=== PATIENT | male | born 1960 | race Caucasian/White ===

== ENCOUNTER → 2016-07-22 | Outpatient (CLI) | payer OTHER ==
[2016-07-22 08:41] LABS: CHLORIDE,CL 105 mmol/L (98-110); SODIUM,NA 139 mmol/L (136-146)
== END ==
LOC: MW.CHIM 07:56
PROVIDERS: ATTEND Internal Medicine
DX: Z12.5 Encounter for screening for malignant neoplasm of prostate (principal); E11.9 Type 2 diabetes mellitus without complications
CPT/HCPCS: 36415; 80053; 83036; G0103

== ENCOUNTER 2017-02-04 09:38 | Emergency (ER) | payer OTHER ==
[2017-02-04] MEDS ORDERED: Sodium Chloride 0.9% 1,000 ML IV ONE ×2 (10:06→11:50)
[2017-02-04] MEDS ORDERED: Ondansetron 4 MG/2 ML SDV IVPUSH ONE (10:06)
[2017-02-04] MEDS ORDERED: Pantoprazole 40 MG Vial IVPUSH ONE (10:07)
--- NOTE | 2017-02-04 10:07 | EDM.PDOC ---
ED HPI GENERAL MEDICAL PROBLEM - General Chief Complaint: Gastrointestinal Problem Stated Complaint: BLOOD IN STOOL Time Seen by Provider: 02/04/17 10:06 Source of Information: Reports: Patient - History of Present Illness INITIAL COMMENTS - FREE TEXT/NARRATIVE: HISTORY AND PHYSICAL: History of present illness: []Patient presents with nausea vomiting diarrhea over the last week, he has noted blood in his stool he has had 8 episodes of red stools, denies any fever he has had the nausea and vomiting multiple episodes daily and general malaise decreased appetite No chest pain shortness breath headache dizziness or palpitation no urine symptoms symptoms Review of systems: As per history of present illness and below otherwise all systems reviewed and negative. Past medical history: As per history of present illness and as reviewed below otherwise noncontributory. Surgical history: As per history of present illness and as reviewed below otherwise noncontributory. Social history: No reported history of drug or alcohol abuse. Family history: As per history of present illness and as reviewed below otherwise noncontributory. Physical exam: HEENT: Atraumatic, normocephalic, pupils reactive, negative for conjunctival pallor or scleral icterus, mucous membranes moist, throat clear, neck supple, nontender, trachea midline. Lungs: Clear to auscultation, breath sounds equal bilaterally, chest nontender. Heart: S1S2, regular, negative for clicks, rubs, or JVD. Abdomen: Soft, nondistended, nontender. Negative for masses or hepatosplenomegaly. Negative for costovertebral tenderness. Pelvis: Stable nontender. Genitourinary: Deferred. Rectal: Deferred. Extremities: Atraumatic, negative for cords or calf pain. Neurovascular unremarkable. Neuro: Awake, alert, oriented. Cranial nerves II through XII unremarkable. Cerebellum unremarkable. Motor and sensory unremarkable throughout. Exam nonfocal. Diagnostics: []CBC CMP UA troponin Guaiac performed on stool Stool culture and white blood cell Influenza C. difficile and O&P pending Therapeutics: []Liter normal saline bolus 2 Zofran 8 mg IV Protonix 80 mg IV Flagyl 500 by mouth 3 times a day #30 no refill Zofran Impression: []Blood in loose stool Nausea vomiting Viral syndrome Definitive disposition and diagnosis as appropriate pending reevaluation and review of above. - Related Data Allergies Allergy/AdvReac Type Severity Reaction Status Date / Time No Known Allergies Allergy Verified 01/12/14 15:42 Home Meds: Home Meds Aspirin [Renee Chewable Aspirin] 1 tab PO DAILY 01/12/14 [History] Metoprolol Succinate [Toprol XL] 50 mg PO DAILY 01/12/14 [History] Pravastatin Sodium [Pravastatin (Pravachol)] 40 mg PO BEDTIME 01/12/14 [History] metFORMIN [Glucophage] 1,000 mg PO BID 01/12/14 [History] Dulaglutide [Trulicity] 0 mg SQ WEEKLY 02/04/17 [History] Empagliflozin/Linagliptin [Glyxambi 25 mg-5 mg Tablet] 1 tab PO DAILY 02/04/17 [ History] Ramipril [Altace] 2.5 mg PO DAILY 02/04/17 [History] Social & Family History - Tobacco Use Smoking Status *Q: Never Smoker - Alcohol Use Days Per Week of Alcohol Use: 0 - Recreational Drug Use Recreational Drug Use: No ED ROS GENERAL - Review of Systems Review Of Systems: ROS reveals no pertinent complaints other than HPI. ED EXAM, GENERAL - Physical Exam Exam: See Below Course - Vital Signs Last Recorded V/S: Last Vital Signs Temp 36.1 C 02/04/17 09:38 Pulse 95 02/04/17 09:38 Resp 18 02/04/17 09:38 BP 109/73 02/04/17 09:38 Pulse Ox 95 02/04/17 09:38 - Orders/Labs/Meds Orders: Active Orders 24 hr Category Date Time Status Abdomen 2V AP Flat Upright [CR] Stat Exams 02/04/17 11:05 Taken CDIFF TOX A+B [OP] Stat Lab 02/04/17 14:21 Uncollected CULTURE STOOL + CAMPY+SHIGATOX [RM] Stat Lab 02/04/17 13:10 Results OVA & PARASITES BY IMMUNOASSAY [MREF] Stat Lab 02/04/17 13:10 Received Labs: Laboratory Tests 02/04/17 02/04/17 02/04/17 Range/Units 10:14 10:14 10:14 WBC 15.43 H (4.0-11.0) K/uL RBC 5.12 (4.50-5.90) M/uL Hgb 15.3 (13.0-17.0) g/dL Hct 44.1 (38.0-50.0) % MCV 86.1 (80.0-98.0) fL MCH 29.9 (27.0-32.0) pg MCHC 34.7 (31.0-37.0) g/dL RDW Std Deviation 40.5 (28.0-62.0) fl RDW Coeff of Aureliano 13 (11.0-15.0) % Plt Count 261 (150-400) K/uL MPV 9.40 (7.40-12.00) fL Add Manual Diff YES Neutrophils % (Manual) 69 (48.0-80.0) % Band Neutrophils % 2 % Lymphocytes % (Manual) 24 (16.0-40.0) % Monocytes % (Manual) 5 (0.0-15.0) % Nucleated RBC % 0.0 /100WBC Absolute Seg Neuts 10.6 H (1.4-5.7) Band Neutrophils # 0.3 Lymphocytes # (Manual) 3.7 H (0.6-2.4) Monocytes # (Manual) 0.8 (0.0-0.8) Nucleated RBCs # 0 K/uL Sodium 134 L (136-146) mmol/L Potassium 4.4 (3.5-5.1) mmol/L Chloride 100 (98-110) mmol/L Carbon Dioxide 20 L (21-31) mmol/L BUN 48 H (6.0-23.0) mg/dL Creatinine 1.3 (0.6-1.5) mg/dL Est Cr Clr Drug Dosing 68.81 mL/min Estimated GFR (MDRD) 56.9 ml/min Glucose 204 H (60-110) mg/dL Calcium 9.4 (8.8-10.8) mg/dL Total Bilirubin 0.6 (0.1-1.5) mg/dL AST 14 (5-40) IU/L ALT 34 (8-54) IU/L Alkaline Phosphatase 62 (40-150) Troponin I < 0.10 (0.0-0.29) NG/ML Total Protein 6.7 (6.0-8.0) g/dL Albumin 3.7 (3.5-5.0) g/dL Globulin 3.0 (2.0-3.5) g/dL Albumin/Globulin Ratio 1.2 L (1.3-2.8) Urine Color Urine Appearance Urine pH (5.0-8.0) Ur Specific [place] (1.001-1.035) Urine Protein (NEGATIVE) mg/dL Urine Glucose (UA) (NEGATIVE) mg/dL Urine Ketones (NEGATIVE) mg/dL Urine Occult Blood (NEGATIVE) Urine Nitrite (NEGATIVE) Urine Bilirubin (NEGATIVE) Urine Urobilinogen (<2.0) EU/dL Ur Leukocyte Esterase (NEGATIVE) Urine RBC (0-2/HPF) Urine WBC (0-5/HPF) Ur Epithelial Cells (NONE-FEW) Urine Bacteria (NEGATIVE) Blood Type Antibody Screen 02/04/17 02/04/17 Range/Units 10:14 13:10 WBC (4.0-11.0) K/uL RBC (4.50-5.90) M/uL Hgb (13.0-17.0) g/dL Hct (38.0-50.0) % MCV (80.0-98.0) fL MCH (27.0-32.0) pg MCHC (31.0-37.0) g/dL RDW Std Deviation (28.0-62.0) fl RDW Coeff of Aureliano (11.0-15.0) % Plt Count (150-400) K/uL MPV (7.40-12.00) fL Add Manual Diff Neutrophils % (Manual) (48.0-80.0) % Band Neutrophils % % Lymphocytes % (Manual) (16.0-40.0) % Monocytes % (Manual) (0.0-15.0) % Nucleated RBC % /100WBC Absolute Seg Neuts (1.4-5.7) Band Neutrophils # Lymphocytes # (Manual) (0.6-2.4) Monocytes # (Manual) (0.0-0.8) Nucleated RBCs # K/uL Sodium (136-146) mmol/L Potassium (3.5-5.1) mmol/L Chloride (98-110) mmol/L Carbon Dioxide (21-31) mmol/L BUN (6.0-23.0) mg/dL Creatinine (0.6-1.5) mg/dL Est Cr Clr Drug Dosing mL/min Estimated GFR (MDRD) ml/min Glucose (60-110) mg/dL Calcium (8.8-10.8) mg/dL Total Bilirubin (0.1-1.5) mg/dL AST (5-40) IU/L ALT (8-54) IU/L Alkaline Phosphatase (40-150) Troponin I (0.0-0.29) NG/ML Total Protein (6.0-8.0) g/dL Albumin (3.5-5.0) g/dL Globulin (2.0-3.5) g/dL Albumin/Globulin Ratio (1.3-2.8) Urine Color YELLOW Urine Appearance CLEAR Urine pH 5.0 (5.0-8.0) Ur Specific [place] 1.020 (1.001-1.035) Urine Protein NEGATIVE (NEGATIVE) mg/dL Urine Glucose (UA) >=1000 (NEGATIVE) mg/dL Urine Ketones 15 H (NEGATIVE) mg/dL Urine Occult Blood NEGATIVE (NEGATIVE) Urine Nitrite NEGATIVE (NEGATIVE) Urine Bilirubin NEGATIVE (NEGATIVE) Urine Urobilinogen 0.2 (<2.0) EU/dL Ur Leukocyte Esterase NEGATIVE (NEGATIVE) Urine RBC 0-1 (0-2/HPF) Urine WBC 0-1 (0-5/HPF) Ur Epithelial Cells RARE (NONE-FEW) Urine Bacteria RARE (NEGATIVE) Blood Type B POSITIVE Antibody Screen NEGATIVE Meds: Medications Discontinued Medications Generic Name Dose Route Start Last Admin Trade Name Freq PRN Reason Stop Dose Admin Sodium Chloride 1,000 mls @ 999 mls/hr 02/04/17 10:06 02/04/17 10:51 Normal Saline IV 02/04/17 11:06 999 mls/hr STAT ONE Administration Sodium Chloride 1,000 mls @ 999 mls/hr 02/04/17 11:50 02/04/17 12:43 Normal Saline IV 02/04/17 12:50 999 mls/hr STAT ONE Administration Ondansetron HCl 8 mg 02/04/17 10:06 02/04/17 10:51 Zofran IVPUSH 02/04/17 10:07 8 mg ONETIME ONE Administration Pantoprazole Sodium 80 mg 02/04/17 10:07 02/04/17 10:51 Protonix Iv IVPUSH 02/04/17 10:08 80 mg .BOLUS ONE Administration Departure - Departure Time of Disposition: 14:27 Disposition: Home, Self-Care 01 Condition: Good Clinical Impression: Bloody stools - Discharge Information Referrals: Norris Bernstein MD [Primary Care Provider] - Forms: ED Department Discharge Additional Instructions: Medication as prescribed Return symptoms persist or worsen Follow-up with primary care in one week sooner as needed Stool cultures and tests for parasites as well as certain bacteria as that may cause blood in stool are pending [facility] - Primary Care [address] [place] [id number] The following information is given to patients seen in the emergency department who are being discharged to home. This information is to outline your options for follow-up care. We provide all patients seen in our emergency department with a follow-up referral. The need for follow-up, as well as the timing and circumstances, are variable depending upon the specifics of your emergency department visit. If you don't have a primary care physician on staff, we will provide you with a referral. We always advise you to contact your personal physician following an emergency department visit to inform them of the circumstance of the visit and for follow-up with them and/or the need for any referrals to a consulting specialist. The emergency department will also refer you to a specialist when appropriate. This referral assures that you have the opportunity for follow-up care with a specialist. All of these measure are taken in an effort to provide you with optimal care, which includes your follow-up. Under all circumstances we always encourage you to contact your private physician who remains a resource for coordinating your care. When calling for follow-up care, please make the office aware that this follow-up is from your recent emergency room visit. If for any reason you are refused follow-up, please contact the [facility] emergency department at and asked to speak to the emergency department charge nurse. - My Orders Last 24 Hours: My Active Orders 02/04/17 11:05 Abdomen 2V AP Flat Upright [CR] Stat 02/04/17 13:10 CULTURE STOOL + CAMPY+SHIGATOX [RM] Stat OVA & PARASITES BY IMMUNOASSAY [MREF] Stat 02/04/17 14:21 CDIFF TOX A+B [OP] Stat - Assessment/Plan Last 24 Hours: My Active Orders 02/04/17 11:05 Abdomen 2V AP Flat Upright [CR] Stat 02/04/17 13:10 CULTURE STOOL + CAMPY+SHIGATOX [RM] Stat OVA & PARASITES BY IMMUNOASSAY [MREF] Stat 02/04/17 14:21 CDIFF TOX A+B [OP] Stat
--- NOTE | 2017-02-06 11:14 | CR ---
EXAM DATE: 02/04/17 PATIENT'S AGE: 56 Patient: SHLOMO ROBERT Facility: [place], [place] Site . Site : 1960 Study: XRay Abdomen [id number] 12:15:47 PM Ordering Physician: Agustin Osorio Final Report: INDICATION: Pain and vomiting. Technique: Three views abdomen and pelvis flat upright. Findings: No free air. Moderate elevation right hemidiaphragm. Ill-defined increased indeterminate opacity in the left lung base laterally could be related infiltrate, pleural fluid, atelectasis, and/or pleural thickening. Mild atelectasis left lung base medially. Bowel gas pattern nonspecific and falls within normal limits. Moderate degenerative arthritis both hips with sclerosis and lucency in the right acetabulum related to this degenerative disease. Remainder negative. Dictated by Esequiel Pretty MD @ Feb 04 2017 12:34PM (Electronic Signature) Report Signed by Proxy. DOUGLAS
== END 2017-02-04 14:51 | disposition home or self-care (01) ==
LOC: MW.ED 09:38
DX: K92.1 Melena (principal); R11.2 Nausea with vomiting, unspecified; B34.9 Viral infection, unspecified; Z79.82 Long term (current) use of aspirin; Z79.899 Other long term (current) drug therapy
CPT/HCPCS: 36415; 74020; 80053; 81001; 82272; 82962; 83630; 84484; 85025; 86850; 86900; 86901; 87046; 87324; 87328; 87329; 87804; 96361; 96374; 96375; 99284; C9113; J2405; J7040; 87899; 99283

== ENCOUNTER 2017-04-10 13:22 | Inpatient (IN) | payer OTHER ==
[2017-04-10] MEDS ORDERED: metroNIDAZOLE/Normal Saline 500 MG in Premix Bag 1 BAG IV SCH (14:15)
[2017-04-10] MEDS ORDERED: Ondansetron 4 MG/2 ML SDV IVPUSH PRN ×2 (14:25→19:46)
--- NOTE | 2017-04-10 14:45 | PCM.HP ---
H&P History of Present Illness - General Admit Problem/Dx: Admission Diagnosis/Problem Admission Diagnosis/Problem Abdominal pain - History of Present Illness Initial Comments - Free Text/Narative: 56 yo male with pmh of DM and PR who presented to Dr. Minaya's clinic with complaint of abdominal pain. Patient reports throwing up at 2:00 pm yesterday and throughout the night having worsing right lower quadrant pain that radiated to the back. He only threw up once and has had no diarrhea. The abdominal pain improved this morning. Labs were ordered in clinic and were significant for Leukocytosis of 24,000 and an increase in his creatinine to 2.1 from 1.4. The patient was then called from home and a direct admission was arranged. - Related Data Allergies/Adverse Reactions: Allergies Allergy/AdvReac Type Severity Reaction Status Date / Time No Known Allergies Allergy Verified 01/12/14 15:42 Home Medications: Home Meds Aspirin [Renee Chewable Aspirin] 1 tab PO DAILY 01/12/14 [History] Metoprolol Succinate [Toprol XL] 50 mg PO DAILY 01/12/14 [History] metFORMIN [Glucophage] 1,000 mg PO QAM 01/12/14 [History] Ramipril [Altace] 2.5 mg PO DAILY 02/04/17 [History] Dulaglutide [Trulicity] 1.5 mg SQ WEEKLY 04/10/17 [History] Empagliflozin/Linagliptin [Glyxambi 25 mg-5 mg Tablet] 1 tab PO QAM 04/10/17 [ History] Hydrocodone/Acetaminophen [[place] 5-325] 1 tab PO Q6HR PRN 04/10/17 [History] Past Medical History - Past Health History Medical/Surgical History: Denies Medical/Surgical History HEENT History: Reports: Impaired Vision Cardiovascular History: Reports: Hypertension, PR Gastrointestinal History: Reports: Other (See Below) Other Gastrointestinal History: hernia Musculoskeletal History: Reports: Fracture Other Musculoskeletal History: cracked elbow Endocrine/Metabolic History: Reports: Diabetes, Type II - Infectious Disease History Infectious Disease History: Reports: None - Past Surgical History HEENT Surgical History: Reports: None Cardiovascular Surgical History: Reports: None GI Surgical History: Reports: Colonoscopy Endocrine Surgical History: Reports: None Social & Family History - Family History Family Medical History: Noncontributory Oncologic: Reports: Pancreatic - Tobacco Use Smoking Status *Q: Never Smoker Second Hand Smoke Exposure: No - Caffeine Use Caffeine Use: Reports: Tea - Alcohol Use Days Per Week of Alcohol Use: 0 - Recreational Drug Use Recreational Drug Use: No H&P Review of Systems - Review of Systems: Review Of Systems: ROS reveals no pertinent complaints other than HPI. Exam - Exam Exam: See Below - Vital Signs Weight: 115.6 kg - Exam General: Alert, Oriented HEENT: Mucosa Moist & [place] Lungs: Clear to Auscultation, Normal Respiratory Effort GI/Abdominal Exam: Soft, Tender (to right lower quadrant). No: Distended, Guarding, Rigid, Rebound Extremities: No Pedal Edema Skin: Warm, Dry, Intact *Q Meaningful Use (ADM) - VTE *Q VTE Criteria *Q: - Stroke *Q Stroke Criteria *Q: - AMI *Q AMI Criteria *Q: Problem List Initiated/Reviewed/Updated: Yes Orders Last 24hrs: Active Orders 24 hr Category Date Time Status Patient Status [ADT] Routine ADT 04/10/17 14:23 Active Antiembolic Devices [RC] PER UNIT ROUTINE Care 04/10/17 14:24 Active EKG 12 Lead [EKG Documentation Completion] [RC] ROUTINE Care 04/10/17 14:00 Active Oxygen Therapy [RC] PRN Care 04/10/17 14:23 Active Telemetry Monitoring [Cardiac Monitoring] [RC] . Care 04/10/17 14:01 Active DIRECTED Up ad Lennie [RC] ASDIRECTED Care 04/10/17 14:23 Active VTE/DVT Education [RC] PER UNIT ROUTINE Care 04/10/17 14:23 Active Vital Signs [RC] Q4H Care 04/10/17 14:23 Active Abdomen Pelvis wo Cont [CT] Stat Exams 04/10/17 14:03 Ordered AMYLASE [CHEM] Routine Lab 04/10/17 14:26 Ordered BASIC METABOLIC PANEL,BMP [CHEM] AM Lab 04/11/17 05:11 Ordered BMP [BASIC METABOLIC PANEL,BMP] [CHEM] Routine Lab 04/10/17 20:00 Ordered CBC W/O DIFF,HEMOGRAM [HEME] AM Lab 04/11/17 05:11 Ordered CULTURE BLOOD [BC] Stat Lab 04/10/17 14:01 Ordered CULTURE BLOOD [BC] Stat Lab 04/10/17 14:01 Ordered LACTIC ACID,WHOLE BLOOD [BG] Routine Lab 04/10/17 14:32 Ordered LIPASE [CHEM] Routine Lab 04/10/17 14:26 Ordered Levofloxacin/Dextrose 5%-Water [Levaquin in D5W 750 MG/ Med 04/10/17 14:15 Active 150 ML] 750 mg Premix Bag 1 bag IV Q24H Morphine Med 04/10/17 14:25 Active 2 mg IVPUSH Q2H PRN Ondansetron [Zofran] Med 04/10/17 14:25 Active 4 mg IVPUSH Q4H PRN Sodium Chloride 0.9% [Normal Saline] 1,000 ml Med 04/10/17 14:15 Active IV ASDIRECTED Sodium Chloride 0.9% [Normal Saline] 500 ml Med 04/10/17 14:15 Active IV .BOLUS metroNIDAZOLE/Normal Saline [Flagyl 500 MG in NS 100 ML Med 04/10/17 14:15 Active ] 500 mg Premix Bag 1 bag IV Q8H Blood Culture x2 Reflex Set [OM.PC] Stat Oth 04/10/17 14:01 Ordered Sequential Compression Device [OM.PC] Per Unit Routine Oth 04/10/17 14:23 Ordered Resuscitation Status Routine Resus Stat 04/10/17 14:23 Ordered Medication Orders Levofloxacin/Dextrose 750 mg/ (Premix) 150 mls @ 100 mls/hr IV Q24H NORM Metronidazole 500 mg/ Premix 100 mls @ 100 mls/hr IV Q8H NORM Sodium Chloride (Normal Saline) 500 mls @ 1,000 mls/hr IV .BOLUS NORM Sodium Chloride (Normal Saline) 1,000 mls @ 125 mls/hr IV ASDIRECTED NORM Morphine Sulfate (Morphine) 2 mg IVPUSH Q2H PRN PRN Reason: Pain Ondansetron HCl (Zofran) 4 mg IVPUSH Q4H PRN PRN Reason: Nausea Assessment/Plan Comment:: 56 yo male who presents with abdominal pain and leukocytosis. Will start fluid rescucitation, flagyl, and levaquin. CT scan of abdomen ordered
[2017-04-10] MEDS ORDERED: Sodium Chloride 0.9% 500 ML IV SCH (15:30)
[2017-04-10] MEDS: Sodium Chloride 0.9% 500 ML IV SCH ×2 (15:34→15:45)
--- NOTE | 2017-04-10 15:34 | CT ---
CT of the abdomen and pelvis without contrast. HISTORY: Pain TECHNIQUE: Axial CT images were obtained of the abdomen and pelvis without contrast. Coronal and sagi ttal reconstructions obtained. FINDINGS: The lung bases are clear, no pleural effusion. There is fluid within the distal esophagus, likely ref lux. Moderate fatty infiltration of the liver. The spleen, adrenal glands, and pancreas appear unremarkabl e for noncontrast examination. The gallbladder appears normal. There is no bulky retroperitoneal lym phadenopathy. No abdominal ascites. There are no calcifications noted within the kidneys or along the courses of the ureters bilaterally. The large and small bowel are normal in caliber without evidence of obstruction. The appendix measure s up to 1.4 cm with surrounding stranding and a trace fluid. There are a few pockets of free air note d within the right lower abdomen as well. Scattered diverticulosis. There is no bulky pelvic lymphade nopathy. The urinary bladder appears normal. Advanced degenerative changes noted within the right hip and less so within the left. No suspicious o sseous abnormalities. IMPRESSION: 1. Ruptured appendicitis. 2. Minimal diverticulosis without evidence of diverticulitis. 3. Fatty infiltration of the liver. 4. Likely reflux within the distal esophagus.
[2017-04-10] MEDS: Levofloxacin/Dextrose 5%-Water 750 MG in Premix Bag 1 BAG IV SCH (15:40)
--- NOTE | 2017-04-10 16:39 | PCM.CONS ---
H&P History of Present Illness - General Date of Service: 04/10/17 Admit Problem/Dx: Admission Diagnosis/Problem Admission Diagnosis/Problem Abdominal pain Source of Information: Patient, Family History Limitations: Reports: No Limitations - History of Present Illness Symptom Onset Date: 04/09/17 Symptom Onset Time: 14:00 Duration of Symptoms: Reports: Day(s): Location: Reports: Abdomen Quality: Reports: Ache, Pressure Improves with: Reports: Rest Worsens with: Reports: Movement Context: Reports: Sick Contact Associated Symptoms: Reports: Nausea/Vomiting. Denies: Fever/Chills - Related Data Allergies/Adverse Reactions: Allergies Allergy/AdvReac Type Severity Reaction Status Date / Time No Known Allergies Allergy Verified 01/12/14 15:42 Home Medications: Home Meds Aspirin [Renee Chewable Aspirin] 1 tab PO DAILY 01/12/14 [History] Metoprolol Succinate [Toprol XL] 50 mg PO DAILY 01/12/14 [History] metFORMIN [Glucophage] 1,000 mg PO QAM 01/12/14 [History] Ramipril [Altace] 2.5 mg PO DAILY 02/04/17 [History] Dulaglutide [Trulicity] 1.5 mg SQ WEEKLY 04/10/17 [History] Empagliflozin/Linagliptin [Glyxambi 25 mg-5 mg Tablet] 1 tab PO QAM 04/10/17 [ History] Hydrocodone/Acetaminophen [[place] 5-325] 1 tab PO Q6HR PRN 04/10/17 [History] Past Medical History - Past Health History Medical/Surgical History: Denies Medical/Surgical History HEENT History: Reports: Impaired Vision Cardiovascular History: Reports: Hypertension, [place] Respiratory History: Reports: Sleep Apnea Gastrointestinal History: Reports: Other (See Below) Other Gastrointestinal History: hernia Musculoskeletal History: Reports: Fracture Other Musculoskeletal History: cracked elbow Endocrine/Metabolic History: Reports: Diabetes, Type II - Infectious Disease History Infectious Disease History: Reports: None - Past Surgical History HEENT Surgical History: Reports: None Cardiovascular Surgical History: Reports: None GI Surgical History: Reports: Colonoscopy Endocrine Surgical History: Reports: None Social & Family History - Family History Family Medical History: Noncontributory Oncologic: Reports: Pancreatic - Tobacco Use Smoking Status *Q: Never Smoker Second Hand Smoke Exposure: No - Caffeine Use Caffeine Use: Reports: Tea - Alcohol Use Days Per Week of Alcohol Use: 0 - Recreational Drug Use Recreational Drug Use: No H&P Review of Systems - Review of Systems: Review Of Systems: See Below General: Reports: Fever, Decreased Appetite. Denies: Chills, Weight Loss HEENT: Reports: No Symptoms Pulmonary: Denies: Shortness of Breath, Wheezing, Pleuritic Chest Pain, Cough Cardiovascular: Denies: Chest Pain, Palpitations Gastrointestinal: Reports: Abdominal Pain, Decreased Appetite, Nausea, Vomiting. Denies: Bloody Stool, Constipation, Diarrhea, Flatus, Hematemesis, Hematochezia, Melena Genitourinary: Denies: Dysuria, Frequency, Burning, Urgency Musculoskeletal: Reports: No Symptoms Skin: Reports: No Symptoms Psychiatric: Reports: No Symptoms Neurological: Reports: No Symptoms Hematologic/Lymphatic: Reports: No Symptoms Immunologic: Reports: No Symptoms Exam - Exam Exam: See Below - Vital Signs Vital Signs: Last Vital Signs Temp 96.9 F 04/10/17 14:23 Pulse 169 H 04/10/17 14:23 Resp 18 04/10/17 14:23 BP 92/51 L 04/10/17 14:23 Pulse Ox 94 L 04/10/17 14:23 Weight: 254 lb 13.67 oz - Exam Quality Assessment: Urinary Catheter, DVT Prophylaxis General: Alert, Oriented, Mild Distress HEENT: Conjunctiva Clear, EACs Clear, Pupils Equal, Pupils Reactive, PERRLA Neck: Supple, Trachea Midline Lungs: Clear to Auscultation, Normal Respiratory Effort Cardiovascular: Regular Rate, Regular Rhythm, Normal S1, Normal S2. No: Tachycardia GI/Abdominal Exam: Soft, No Distention, Rebound, Tender (RLQ), Abnormal Bowel Sounds (hypoactive). No: Guarding, Rigid (Male) Exam: No Hernia Rectal (Males) Exam: No: Deferred Back Exam: Normal Inspection Extremities: Normal Inspection, Normal Range of Motion, Non-Tender Skin: Warm, Dry, Intact Neuro Extensive - Mental Status: Alert, Oriented x3 Psychiatric: Alert, Normal Affect, Normal Mood - Patient Data Lab Results Last 24 hrs: Laboratory Results - last 24 hr 04/10/17 04/10/17 Range/Units 14:45 14:45 Lactate 5.4 H (0.20-2.00) mmol/L Amylase 39 (10-90) U/L Lipase 14 (7-80) U/L Consult PN Assessment/Plan Procedures: Procedures ASSAY OF AMYLASE (03/28/16) ASSAY OF FREE THYROXINE (12/30/15) ASSAY OF TROPONIN QUANT (02/04/17) ASSAY THYROID STIM HORMONE (12/30/15) BLOOD TYPING SEROLOGIC ABO (02/04/17) BLOOD TYPING SEROLOGIC RH(D) (02/04/17) CLOSTRIDIUM AG IA (02/04/17) COMPLETE CBC W/AUTO DIFF WBC (02/07/17) COMPREHEN METABOLIC PANEL (03/14/17) CRYPTOSPORIDIUM AG IA (02/04/17) CT ABD & PELVIS W/O CONTRAST (02/07/17) EMERGENCY DEPT VISIT (02/04/17) EMERGENCY DEPT VISIT (01/12/14) GIARDIA AG IA (02/04/17) GLUCOSE BLOOD TEST (02/04/17) GLYCOSYLATED HEMOGLOBIN TEST (03/14/17) HEPATITIS B SURFACE AG IA (01/08/15) HEPATITIS C AB TEST (01/08/15) HYDRATE IV INFUSION ADD-ON (02/04/17) INFLUENZA ASSAY W/OPTIC (02/04/17) LACTOFERRIN FECAL (QUAL) (02/04/17) LIPID PANEL (12/30/15) MICROALBUMIN SEMIQUANT (12/30/15) OCCULT BLD FECES 1-3 TESTS (02/04/17) RBC ANTIBODY SCREEN (02/04/17) ROUTINE VENIPUNCTURE (03/14/17) STOOL CULTR AEROBIC BACT EA (02/04/17) THER/PROPH/DIAG INJ IV PUSH (02/04/17) TX/PRO/DX INJ NEW DRUG ADDON (02/04/17) URINALYSIS AUTO W/SCOPE (02/04/17) X-RAY EXAM OF ABDOMEN (02/04/17) (1) Acute appendicitis with rupture SNOMED Code(s): 83319017 Code(s): K35.2 - ACUTE APPENDICITIS WITH GENERALIZED PERITONITIS Priority: High Current Visit: Yes (2) Acute kidney injury (nontraumatic) SNOMED Code(s): 42658268 Code(s): N17.9 - ACUTE KIDNEY FAILURE, UNSPECIFIED Priority: High Current Visit: Yes (3) Diabetes 1.5, managed as type 2 SNOMED Code(s): 216948265 Code(s): E10.9 - TYPE 1 DIABETES MELLITUS WITHOUT COMPLICATIONS Priority: High Current Visit: Yes (4) Coronary artery disease SNOMED Code(s): 12267225 Code(s): I25.10 - ATHSCL HEART DISEASE OF [place] CORONARY ARTERY W/O ANG PCTRS Priority: Medium Current Visit: Yes Qualifiers: Associated angina: without angina (5) Myocardial infarction, 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 Both operative procedures, along with the risks, including, but not limited to, bleeding, infection, pneumonia, deep venous thrombosis, pulmonary emboli, myocardial infarction, and adjacent organ injury have been reviewed with the patient who voices understanding, offers no questions and agrees to proceed.
[2017-04-10] MEDS ORDERED: DOPamine/Dextrose 5%-Water 400 MG/250 ML BAG IV SCH (17:00)
[2017-04-10] MEDS: metroNIDAZOLE/Normal Saline 500 MG in Premix Bag 1 BAG IV SCH (17:09)
--- NOTE | 2017-04-10 17:14 | PCM.PREANE ---
Preanesthetic Assessment - Procedure Proposed Procedure: Laparoscopic appendectomy/abdominal exploration - Anesthesia/Transfusion/Family Hx Anesthesia History: Prior Anesthesia Without Reaction Family History of Anesthesia Reaction: No Transfusion History: No Prior Transfusion(s) Intubation History: Unknown Additional History: Patient presented from home to ICU with evidence of sepsis. Hx of [place], recent bleeding episode via GI tract, diabetes with trulicity injections q Sundays, being sick for greater than one day, and was admitted per Dr. Minaya. - Review of Systems General: Weakness Pulmonary: No Symptoms, Cough (led to pain in low abdomen (pointed out by patient)), Other (suggested he may have sleep apnea - uses fan to sleep) Cardiovascular: Other (rapid HR - 160 on arrival with low BP ) Gastrointestinal: Abdominal Pain Neurological: No Symptoms - Physical Assessment NPO Status Date: 04/10/17 O2 Sat by Pulse Oximetry: 92 Respiratory Rate: 20 Vital Signs: Last Vital Signs Temp 97.6 F 04/10/17 15:25 Pulse 169 H 04/10/17 14:23 Resp 20 04/10/17 16:00 BP 97/62 04/10/17 16:00 Pulse Ox 92 L 04/10/17 16:00 Height: 6 ft Weight: 254 lb 13.67 oz ASA Class: 3E Mental Status: Alert & Oriented x3 Airway Class: Mallampati = 2 Dentition: Reports: Normal Dentition Thyro-Mental Finger Breadths: 3 (bearded) Mouth Opening Finger Breadths: 3 ROM/Head Extension: Limited/Partial Lungs: Clear to Auscultation, Normal Respiratory Effort Cardiovascular: Regular Rate, Regular Rhythm, No Murmurs - Lab Values: Laboratory Last Values ABG pH 7.447 (7.35-7.45) 04/10/17 16:55 ABG pCO2 27 mmHG (35-45) L 04/10/17 16:55 ABG pO2 74 mmHG (75-100) L 04/10/17 16:55 ABG HCO3 18 mEq/L (22-26) L 04/10/17 16:55 ABG Total CO2 16.0 04/10/17 16:55 ABG Base Excess -3.9 (-2.0-2.0) L 04/10/17 16:55 Lactate 5.4 mmol/L (0.20-2.00) H 04/10/17 14:45 Amylase 39 U/L (10-90) 04/10/17 14:45 Lipase 14 U/L (7-80) 04/10/17 14:45 - Imaging/EKG Impressions: SR 94; low voltage precordials; done at 1700 hrs - Allergies Allergies/Adverse Reactions: Allergies Allergy/AdvReac Type Severity Reaction Status Date / Time No Known Allergies Allergy Verified 01/12/14 15:42 - Blood Blood Available: Yes Product(s) Available: PRBC (T and S ordered) - Anesthesia Plan Pre-Op Medication Ordered: None - Acknowledgements Anesthesia Type Planned: General Anesthesia (OET) Pt an Appropriate Candidate for the Planned Anesthesia: Yes Alternatives and Risks of Anesthesia Discussed w Pt/Guardian: Yes Pt/Guardian Understands and Agrees with Anesthesia Plan: Yes Additional Comments: probable A-line and Central line ; initially additional peripheral line placement. PreAnesthesia Questionnaire - Past Health History Medical/Surgical History: Denies Medical/Surgical History HEENT History: Reports: Impaired Vision Cardiovascular History: Reports: Hypertension, [place] Respiratory History: Reports: Sleep Apnea Gastrointestinal History: Reports: Other (See Below) Other Gastrointestinal History: hernia Musculoskeletal History: Reports: Fracture Other Musculoskeletal History: cracked elbow Endocrine/Metabolic History: Reports: Diabetes, Type II - Infectious Disease History Infectious Disease History: Reports: None - Past Surgical History HEENT Surgical History: Reports: None Cardiovascular Surgical History: Reports: None GI Surgical History: Reports: Colonoscopy Endocrine Surgical History: Reports: None - SUBSTANCE USE Smoking Status *Q: Never Smoker Second Hand Smoke Exposure: No Days Per Week of Alcohol Use: 0 Recreational Drug Use History: No - HOME MEDS Home Medications: Home Meds Aspirin [Renee Chewable Aspirin] 1 tab PO DAILY 01/12/14 [History] Metoprolol Succinate [Toprol XL] 50 mg PO DAILY 01/12/14 [History] metFORMIN [Glucophage] 1,000 mg PO QAM 01/12/14 [History] Ramipril [Altace] 2.5 mg PO DAILY 02/04/17 [History] Dulaglutide [Trulicity] 1.5 mg SQ WEEKLY 04/10/17 [History] Empagliflozin/Linagliptin [Glyxambi 25 mg-5 mg Tablet] 1 tab PO QAM 04/10/17 [ History] Hydrocodone/Acetaminophen [[place] 5-325] 1 tab PO Q6HR PRN 04/10/17 [History] - CURRENT (IN HOUSE) MEDS Current Meds: Current Medications Levofloxacin/Dextrose 750 mg/ (Premix) 150 mls @ 100 mls/hr IV Q24H NORM Last Admin: 04/10/17 15:40 Dose: 100 mls/hr Sodium Chloride (Normal Saline) 500 mls @ 1,000 mls/hr IV .BOLUS NORM Last Admin: 04/10/17 15:34 Dose: 1,000 mls/hr Sodium Chloride (Normal Saline) 1,000 mls @ 125 mls/hr IV ASDIRECTED NORM Dopamine HCl/Dextrose (Dopamine In D5w 400 Mg/250 Ml) 400 mg in 250 mls @ 8.67 mls/hr IV TITRATE NORM; 2 MCG/KG/MIN PRN Reason: Protocol Norepinephrine Bitartrate (Norepinephr-0.9% Nacl 4 Mg/250) 4 mg in 250 mls @ 7.5 mls/hr IV TITRATE NORM; 2 MCG/MIN PRN Reason: Protocol Vasopressin 100 units/ Sodium (Chloride) 100 mls @ 60 mls/hr IV TITRATE NORM; 1 UNITS/MIN PRN Reason: Protocol Metronidazole 500 mg/ Premix 100 mls @ 100 mls/hr IV Q8H NORM Morphine Sulfate (Morphine) 2 mg IVPUSH Q2H PRN PRN Reason: Pain Ondansetron HCl (Zofran) 4 mg IVPUSH Q4H PRN PRN Reason: Nausea Discontinued Medications Metronidazole 500 mg/ Premix 100 mls @ 100 mls/hr IV Q8H NORM
--- NOTE | 2017-04-10 17:19 | PCM.SN ---
- Free Text/Narrative Note: Patient was noted to have heart rate of 160s sinus and blood pressure in the 90s /50s. He was transferred to the ICU and given IV fluid boluses. Levaquin and Flagyl given. On reexamination His blood pressure improved to 110s/60s and heart rate improved to the 90s bpm. CT scan of abdomen reported ruptured appendicitis. Dr. Villatoro was consulted and plans on taking to OR.
[2017-04-10] MEDS ORDERED: Etomidate 2 MG/ML 20 ML SDV IVPUSH ONE (17:21)
[2017-04-10] MEDS ORDERED: Ketamine 500 mg/10 ML MDV ONE (17:21)
[2017-04-10] MEDS ORDERED: fentaNYL 250 MCG/5 ML SDV ONE (17:21)
[2017-04-10] MEDS ORDERED: Ondansetron 4 MG/2 ML SDV ONE (17:21)
[2017-04-10] MEDS ORDERED: Rocuronium 10 MG/ML 10 ML Syringe ONE (17:21)
[2017-04-10] MEDS ORDERED: Midazolam 1 MG/ML 2 ML SDV ONE (17:21)
[2017-04-10] MEDS ORDERED: Succinylcholine/Normal Saline 200 MG/10 ML Syringe ONE (17:21)
[2017-04-10] MEDS ORDERED: Lidocaine 2% 5 ML SDV ONE (17:21)
[2017-04-10] MEDS ORDERED: Sodium Chloride 0.9% 20 ML ONE (17:23)
[2017-04-10] MEDS ORDERED: ceFAZolin 1 GM Vial ONE (17:33)
[2017-04-10] MEDS ORDERED: Bupivacaine 0.5% 30 ML SDV ONE (17:33)
[2017-04-10] MEDS: Sodium Chloride 0.9% 1,000 ML IV SCH ×2 (17:48→22:48)
[2017-04-10] MEDS ORDERED: Phenylephrine/Normal Saline 100 MCG/ML 10 ML Syringe ONE (18:14)
[2017-04-10] MEDS ORDERED: Morphine 10 MG/ML Syringe IVPUSH PRN (19:46)
[2017-04-10] MEDS ORDERED: Lactated Ringers 1,000 ML IV SCH (20:00)
--- NOTE | 2017-04-10 20:02 | PCM.OPNOTE ---
- General Post-Op/Procedure Note Date of Surgery/Procedure: 04/10/17 Operative Procedure(s): Laparoscopic appendectomy Pre Op Diagnosis: Acute appendicitis with rupture Post-Op Diagnosis: Appendicitis with rupture and diffuse peritonitis Anesthesia Technique: General ET Tube Primary Surgeon: Andrey Villatoro Fluid Replacement, Intraop: 2,300 Output, Urine Amount: 550 EBL in mLs: 15 Surgical Drain/Tube Type: Luis A Kiran Flat Drain Condition: Critical Free Text/Narrative:: Intake & Output 04/10/17 04/10/17 04/10/17 03:59 11:59 19:59 Intake Total 1250 Balance 1250 Dictation -2118 CPT CODE 44065
--- NOTE | 2017-04-10 20:22 | PCM.SN ---
- Free Text/Narrative Note: Patient encountered at end case for placement of 3-lumen central venous line for intravenous access, central venous monitoring, and iv therapies. The right upper quadrant of the chest and right neck were cleansed with chloroprep. I was gowned, masked and a sterile drape covered the patient. The clavicle was palpated and right subclavian vein access was obtained without difficulty. The J -wire was passed via the syringe/needle and removed. The dilator was then passed over the wire and removed. The 3-lumen catheter was then passed over the wire and the wire removed. the catheter was then positioned at 16cm at the exit site. the anchors were then sutured to the chest skin with kit provided suture. a transparent sterile cover was then applied. the ports were flushed with saline and access ports were placed.the CXR was then done by portable in the OR. the CXR was wet read by Dr. Villatoro and myself confirming the CVP tip to be appropriatley positioned. the line will be attached to electronic monitoring after arrival to the PAR and for use in the ICU.
--- NOTE | 2017-04-10 20:46 | PCM.SN ---
- Free Text/Narrative Note: Pt was brought to the OR in septic shock for emergent laparoscopic appendectomy. Consent was obtained prior for arterial line placement. Ketamine 50mg IV was given before starting the procedure. Rt radial artery was palpated and adequate collateral flow was noted via Allens test. Rt wrist was prepped and draped in sterile fashion. Rt radial artery was then palpated and 20g Arrow catheter was then introduced into the artery. Good pulsating blood return was noted, guide wire was advanced without difficulty, catheter was then advanced into position. Once transducer was attached goo arterial waveform was noted with correlating MAP with NIBP. Catheter was secured with tape, tegaderm , and was attached to arm board. Pt tolerated the procedure well.
[2017-04-10] MEDS: Metoclopramide 10 MG/2 ML SDV IVPUSH SCH (22:33)
[2017-04-10] MEDS: Morphine 2 MG/ML Syringe IVPUSH PRN (23:06)
[2017-04-11] MEDS ORDERED: Sodium Chloride 0.9% 1,000 ML IV SCH (00:15)
[2017-04-11] MEDS: metroNIDAZOLE/Normal Saline 500 MG in Premix Bag 1 BAG IV SCH ×3 (00:58→17:55)
[2017-04-11] MEDS: Morphine 2 MG/ML Syringe IVPUSH PRN ×2 (01:22→21:32)
[2017-04-11] MEDS: Metoclopramide 10 MG/2 ML SDV IVPUSH SCH ×3 (02:34→21:05)
[2017-04-11] MEDS ORDERED: Heparin Sodium 5,000 Units/ML Vial ONE (12:50)
[2017-04-11] MEDS ORDERED: Magnesium Sulfate/Water 50 ML ONE (12:50)
[2017-04-11] MEDS: Levofloxacin/Dextrose 5%-Water 750 MG in Premix Bag 1 BAG IV SCH (14:50)
[2017-04-11] MEDS ORDERED: Digoxin 500 MCG/2 ML Amp IVPUSH ONE ×2 (14:59→18:38)
[2017-04-11] MEDS ORDERED: Digoxin 500 MCG/2 ML Amp ONE (15:25)
--- NOTE | 2017-04-11 15:38 | CR ---
EXAM DATE: 04/10/17 PATIENT'S AGE: 56 Patient: SHLOMO ROBERT Facility: [place], [place] Site . Site : 1960 Study: XRay Chest [id number]/18/2017 8:13:23 PM Ordering Physician: Iva Vail Final Report: INDICATION: central line placement TECHNIQUE: Chest 1 view COMPARISON: None FINDINGS/IMPRESSION: Cardiovascular and mediastinum: The cardiac silhouette is obscured. Mediastinum is within normal limits. Lungs and pleural space: Low lung volumes with bilateral pleural effusions. No pneumothorax. Bones: Degenerative changes. Other: Endotracheal tube with the distal tip 3 cm above the rocio. Right-sided central venous catheter in place with the distal tip within the mid SVC. Dictated by Dewayne Henson MD @ 04/10/2017 8:49:36 PM Dictated by: Dewayne Henson MD @ 04/10/2017 20:49:47 (Electronic Signature) Report Signed by Proxy. [facility]Pop
--- NOTE | 2017-04-11 17:42 | PCM.SURGPN ---
- General Info Date of Service: 04/11/17 Date of Surgery/Procedure: 04/10/17 POD#: 1 Post-Op Diagnosis: Acute ruptured appendicitis with diffuse peritonitis. Sepsis. Functional Status: Reports: Pain Controlled - Review of Systems General: Reports: Fever (MAXIMUM TEMPERATURE 99.8 ), Weakness. Denies: Fatigue , Malaise, Chills, Night Sweats HEENT: Reports: No Symptoms Pulmonary: Denies: Shortness of Breath, Cough Cardiovascular: Reports: Other (Spontaneous atrial fibrillation when he sat on the edge of the bed.). Denies: Chest Pain Gastrointestinal: Reports: Abdominal Pain (Incisional). Denies: Diarrhea, Flatus, Nausea, Vomiting Genitourinary: Reports: Other (Guerra catheter) Musculoskeletal: Reports: No Symptoms Skin: Denies: Cyanosis, Jaundice, Mottled Neurological: Reports: No Symptoms Psychiatric: Reports: No Symptoms - Patient Data Vitals - Most Recent: Last Vital Signs Temp 99.8 F 04/11/17 12:00 Pulse 82 04/10/17 19:52 Resp 27 H 04/11/17 15:00 BP 127/67 04/11/17 15:00 Pulse Ox 89 L 04/11/17 15:00 Weight - Most Recent: 254 lb 13.67 oz I&O - Last 24 Hours: Intake & Output 04/11/17 04/11/17 04/11/17 03:59 11:59 19:59 Intake Total 6700 1157 Output Total 880 1745 Balance 5820 -588 Lab Results Last 24 Hrs: Laboratory Results - last 24 hr 04/10/17 04/10/17 04/10/17 Range/Units 17:00 17:00 17:00 ABG pH (7.35-7.45) ABG pCO2 (35-45) mmHG ABG pO2 (75-100) mmHG ABG HCO3 (22-26) mEq/L ABG Total CO2 ABG Base Excess (-2.0-2.0) Lactate (0.20-2.00) mmol/L Sodium (136-146) mmol/L Potassium 5.9 H (3.5-5.1) mmol/L Chloride (98-110) mmol/L Carbon Dioxide (21-31) mmol/L BUN (6.0-23.0) mg/dL Creatinine (0.6-1.5) mg/dL Est Cr Clr Drug Dosing mL/min Estimated GFR (MDRD) ml/min Glucose (60-110) mg/dL POC Glucose (60-110) mg/dL Calcium (8.8-10.8) mg/dL B-Natriuretic Peptide 296 H (<100) PG/ML Blood Type B POSITIVE Antibody Screen NEGATIVE 04/10/17 04/10/17 04/10/17 Range/Units 20:15 20:15 20:15 ABG pH 7.194 L* (7.35-7.45) ABG pCO2 46 H (35-45) mmHG ABG pO2 162 H (75-100) mmHG ABG HCO3 18 L (22-26) mEq/L ABG Total CO2 16.5 ABG Base Excess -10.3 L (-2.0-2.0) Lactate 3.7 H (0.20-2.00) mmol/L Sodium 133 L (136-146) mmol/L Potassium 6.0 H (3.5-5.1) mmol/L Chloride 106 (98-110) mmol/L Carbon Dioxide 17 L (21-31) mmol/L BUN 24 H (6.0-23.0) mg/dL Creatinine 1.7 H (0.6-1.5) mg/dL Est Cr Clr Drug Dosing 52.62 mL/min Estimated GFR (MDRD) 41.8 ml/min Glucose 152 H (60-110) mg/dL POC Glucose (60-110) mg/dL Calcium 7.8 L (8.8-10.8) mg/dL B-Natriuretic Peptide (<100) PG/ML Blood Type Antibody Screen 04/11/17 04/11/17 04/11/17 Range/Units 00:00 02:08 02:11 ABG pH (7.35-7.45) ABG pCO2 (35-45) mmHG ABG pO2 (75-100) mmHG ABG HCO3 (22-26) mEq/L ABG Total CO2 ABG Base Excess (-2.0-2.0) Lactate 3.3 H 2.7 H (0.20-2.00) mmol/L Sodium (136-146) mmol/L Potassium (3.5-5.1) mmol/L Chloride (98-110) mmol/L Carbon Dioxide (21-31) mmol/L BUN (6.0-23.0) mg/dL Creatinine (0.6-1.5) mg/dL Est Cr Clr Drug Dosing mL/min Estimated GFR (MDRD) ml/min Glucose (60-110) mg/dL POC Glucose 144 H (60-110) mg/dL Calcium (8.8-10.8) mg/dL B-Natriuretic Peptide (<100) PG/ML Blood Type Antibody Screen Med Orders - Current: Current Medications Levofloxacin/Dextrose 750 mg/ (Premix) 150 mls @ 100 mls/hr IV Q24H NORM Last Admin: 04/11/17 14:50 Dose: Not Given Dopamine HCl/Dextrose (Dopamine In D5w 400 Mg/250 Ml) 400 mg in 250 mls @ 8.67 mls/hr IV TITRATE NORM; 2 MCG/KG/MIN PRN Reason: Protocol Norepinephrine Bitartrate (Norepinephr-0.9% Nacl 4 Mg/250) 4 mg in 250 mls @ 7.5 mls/hr IV TITRATE NORM; 2 MCG/MIN PRN Reason: Protocol Last Titration: 04/11/17 04:39 Dose: 3 mcg/min, 11.25 mls/hr Vasopressin 100 units/ Sodium (Chloride) 100 mls @ 0 mls/hr IV TITRATE NORM; Per Protocol PRN Reason: Protocol Last Admin: 04/10/17 22:26 Dose: 0.067 units/min, 4.02 mls/hr Metronidazole 500 mg/ Premix 100 mls @ 100 mls/hr IV Q8H NORM Last Admin: 04/11/17 14:49 Dose: Not Given Sodium Chloride (Normal Saline) 1,000 mls @ 150 mls/hr IV ASDIRECTED NORM Metoclopramide HCl (Reglan) 10 mg IVPUSH Q6H NORM Last Admin: 04/11/17 14:49 Dose: Not Given Morphine Sulfate (Morphine) 2 mg IVPUSH Q2H PRN PRN Reason: Pain Last Admin: 04/11/17 01:22 Dose: 2 mg Morphine Sulfate (Morphine) 0 mg IVPUSH Q1H PRN PRN Reason: Pain (severe 7-10) Ondansetron HCl (Zofran) 4 mg IVPUSH Q6H PRN PRN Reason: Nausea/Vomiting Discontinued Medications Bupivacaine HCl (Marcaine 0.5%) Confirm Administered Dose 30 ml .ROUTE .STK-MED ONE Stop: 04/10/17 17:34 Cefazolin Sodium (Ancef) Confirm Administered Dose 1 gm .ROUTE .STK-MED ONE Stop: 04/10/17 17:34 Etomidate (Amidate) Confirm Administered Dose 40 mg IVPUSH .STK-MED ONE Stop: 04/10/17 17:22 Fentanyl (Sublimaze) Confirm Administered Dose 250 mcg .ROUTE .STK-MED ONE Stop: 04/10/17 17:22 Metronidazole 500 mg/ Premix 100 mls @ 100 mls/hr IV Q8H [facility] Last Admin: 04/10/17 17:47 Dose: Not Given Sodium Chloride (Normal Saline) 500 mls @ 1,000 mls/hr IV .BOLUS [facility] Last Admin: 04/10/17 15:45 Dose: 1,000 mls/hr Sodium Chloride (Normal Saline) 1,000 mls @ 125 mls/hr IV ASDIRECTED [facility] Last Admin: 04/10/17 22:48 Dose: 150 mls/hr Sodium Chloride (Normal Saline) Confirm Administered Dose 20 mls @ as directed .ROUTE .STK-MED ONE Stop: 04/10/17 17:24 Sodium Chloride (Normal Saline) 500 mls @ 999 mls/hr IV .BOLUS [facility] Last Admin: 04/10/17 18:11 Dose: Not Given Acetaminophen (Ofirmev) Confirm Administered Dose 100 mls @ as directed IV .STK- MED ONE Stop: 04/10/17 19:13 Lactated Ringer's (Ringers, Lactated) 1,000 mls @ 175 mls/hr IV ASDIRECTED [facility] Stop: 04/11/17 00:08 Ketamine HCl (Ketalar) Confirm Administered Dose 500 mg .ROUTE .STK-MED ONE Stop: 04/10/17 17:22 Lidocaine (Xylocaine-Mpf 2%) Confirm Administered Dose 5 ml .ROUTE .STK-MED ONE Stop: 04/10/17 17:22 Midazolam HCl (Versed 1 Mg/Ml) Confirm Administered Dose 2 mg .ROUTE .STK-MED ONE Stop: 04/10/17 17:22 Ondansetron HCl (Zofran) 4 mg IVPUSH Q4H PRN PRN Reason: Nausea Ondansetron HCl (Zofran) Confirm Administered Dose 4 mg .ROUTE .STK-MED ONE Stop: 04/10/17 17:22 Phenylephrine HCl (Phenylephrine In Ns 100 Mcg/Ml) Confirm Administered Dose 1 mg .ROUTE .STK-MED ONE Stop: 04/10/17 18:15 Rocuronium [place] (Zemuron) Confirm Administered Dose 100 mg .ROUTE .STK-MED ONE Stop: 04/10/17 17:22 Succinylcholine Chloride (Succinylcholine In Ns Pf) Confirm Administered Dose 200 mg .ROUTE .STK-MED ONE Stop: 04/10/17 17:22 - Exam Wound/Incisions: Dressing Dry and Intact, Drainage (From Luis A-Kiran drain) Quality Assessment: Supplemental Oxygen, Central Line/PICC, Urine Catheter, DVT Prophylaxis. No: Skin Breakdown, Restraints General: Alert, Oriented, Cooperative, Mild Distress HEENT: Pupils Equal, Pupils Reactive, EOMI Neck: Supple, Trachea Midline Lungs: Clear to Auscultation, Normal Respiratory Effort Cardiovascular: Irregular Rhythm, Tachycardia GI/Abdominal Exam: Soft, Non-Tender, No Distention, Abnormal Bowel Sounds ( Hypoactive). No: Guarding, Rigid, Rebound, Tender Extremities: Normal Inspection, No Pedal Edema Skin: Warm, Dry, Intact Neurological: No New Focal Deficit Psy/Mental Status: Alert, Normal Affect, Normal Mood - Problem List & Annotations (1) Acute appendicitis with rupture SNOMED Code(s): 40673845 Code(s): K35.2 - ACUTE APPENDICITIS WITH GENERALIZED PERITONITIS Status: Acute Priority: High Current Visit: Yes (2) Acute kidney injury (nontraumatic) SNOMED Code(s): 14811555 Code(s): N17.9 - ACUTE KIDNEY FAILURE, UNSPECIFIED Status: Acute Priority : High Current Visit: Yes (3) Diabetes 1.5, managed as type 2 SNOMED Code(s): 022030510 Code(s): E10.9 - TYPE 1 DIABETES MELLITUS WITHOUT COMPLICATIONS Status: Acute Priority: High Current Visit: Yes (4) Coronary artery disease SNOMED Code(s): 58642234 Code(s): I25.10 - ATHSCL HEART DISEASE OF [place] CORONARY ARTERY W/O ANG PCTRS Status: Acute Priority: Medium Current Visit: Yes Qualifiers: Associated angina: without angina (5) Myocardial infarction, 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 Care 04/10/17 17:15 Ordered PC] Q24H Guerra Catheter Insertion [Insert Urinary Catheter] [OM. Care 04/10/17 19:45 Ordered PC] Q24H Intake and Output [RC] Q12H Care 04/10/17 19:45 Active Oxygen Therapy [RC] PRN Care 04/10/17 19:45 Active Pulse Oximetry [RC] INTERMITTENT Care 04/10/17 19:45 Active RT BiPAP/CPAP [RC] ASDIRECTED Care 04/10/17 20:21 Active RT Incentive Spirometry [RC] Q1HWA Care 04/10/17 19:45 Active Up ad Lennie [RC] ASDIRECTED Care 04/10/17 19:45 Active Urinary Catheter Assessment [RC] ASDIRECTED Care 04/10/17 17:15 Active Chest 1V Frontal [CR] Routine Exams 04/10/17 20:00 Taken BASIC METABOLIC PANEL,BMP [CHEM] AM Lab 04/11/17 05:11 Ordered BLOOD GAS ARTERIAL [BG] Routine Lab 04/11/17 05:00 Ordered CBC WITH MANUAL DIFF [HEME] AM Lab 04/11/17 05:11 Ordered CBC WITH MANUAL DIFF [HEME] AM Lab 04/12/17 05:11 Ordered LACTIC ACID,WHOLE BLOOD [BG] Q6H Lab 04/11/17 08:00 Ordered LACTIC ACID,WHOLE BLOOD [BG] Q6H Lab 04/11/17 14:00 Ordered MAGNESIUM [CHEM] Routine Lab 04/11/17 05:00 Ordered PHOSPHORUS [CHEM] Routine Lab 04/11/17 05:00 Ordered DOPamine/Dextrose 5%-Water [DOPamine in D5W 400 MG/250 Med 04/10/17 17:00 Active ML] 400 mg in 250 ml IV TITRATE Digoxin [Lanoxin] Med 04/11/17 14:59 Once 250 mcg IVPUSH ONETIME ONE Metoclopramide [Reglan] Med 04/10/17 20:00 Active 10 mg IVPUSH Q6H Morphine Med 04/10/17 19:46 Active See Dose Instructions IVPUSH Q1H PRN Norepinephrine Bit/0.9 % NaCl [Norepinephr-0.9% NaCl 4 Med 04/10/17 17:00 Active mg/250] 4 mg in 250 ml IV TITRATE Ondansetron [Zofran] Med 04/10/17 19:46 Active 4 mg IVPUSH Q6H PRN Sodium Chloride 0.9% [Normal Saline] 1,000 ml Med 04/11/17 00:15 Active IV ASDIRECTED Vasopressin 100 units Med 04/10/17 17:00 Active Sodium Chloride 0.9% [Normal Saline] 95 ml IV TITRATE metroNIDAZOLE/Normal Saline [Flagyl 500 MG in NS 100 ML Med 04/10/17 17:30 Active ] 500 mg Premix Bag 1 bag IV Q8H Medication Administration Instruction [OM.PC] Routine Oth 04/10/17 16:45 Ordered Sequential Compression Device [OM.PC] Routine Oth 04/10/17 19:45 Ordered Medication Orders Levofloxacin/Dextrose 750 mg/ (Premix) 150 mls @ 100 mls/hr IV Q24H NORM Last Admin: 04/11/17 14:50 Dose: Admin: 04/10/17 15:40 Dose: 100 mls/hr Dopamine HCl/Dextrose (Dopamine In D5w 400 Mg/250 Ml) 400 mg in 250 mls @ 8.67 mls/hr IV TITRATE NORM; 2 MCG/KG/MIN PRN Reason: Protocol Norepinephrine Bitartrate (Norepinephr-0.9% Nacl 4 Mg/250) 4 mg in 250 mls @ 7.5 mls/hr IV TITRATE NORM; 2 MCG/MIN PRN Reason: Protocol Last Titration: 04/11/17 04:39 Dose: 3 mcg/min, 11.25 mls/hr Titration: 04/11/17 04:11 Dose: 4 mcg/min, 15 mls/hr Titration: 04/11/17 02:34 Dose: 5 mcg/min, 18.75 mls/hr Titration: 04/11/17 01:45 Dose: 6 mcg/min, 22.5 mls/hr Admin: 04/11/17 00:41 Dose: 8 mcg/min, 30 mls/hr Titration: 04/11/17 00:41 Dose: 8 mcg/min, 30 mls/hr Titration: 04/10/17 22:25 Dose: 8 mcg/min, 30 mls/hr Titration: 04/10/17 22:08 Dose: 12 mcg/min, 45 mls/hr Admin: 04/10/17 21:50 Dose: 15 mcg/min, 56.25 mls/hr Vasopressin 100 units/ Sodium (Chloride) 100 mls @ 0 mls/hr IV TITRATE NORM; Per Protocol PRN Reason: Protocol Last Admin: 04/10/17 22:26 Dose: 0.067 units/min, 4.02 mls/hr Metronidazole 500 mg/ Premix 100 mls @ 100 mls/hr IV Q8H NORM Last Admin: 04/11/17 14:49 Dose: Admin: 04/11/17 00:58 Dose: 100 mls/hr Infusion: 04/10/17 18:09 Dose: 100 mls/hr Admin: 04/10/17 17:09 Dose: 100 mls/hr Sodium Chloride (Normal Saline) 1,000 mls @ 150 mls/hr IV ASDIRECTED NORM Metoclopramide HCl (Reglan) 10 mg IVPUSH Q6H NORM Last Admin: 04/11/17 14:49 Dose: Admin: 04/11/17 14:49 Dose: Admin: 04/11/17 02:34 Dose: 10 mg Admin: 04/10/17 22:33 Dose: 10 mg Morphine Sulfate (Morphine) 2 mg IVPUSH Q2H PRN PRN Reason: Pain Last Admin: 04/11/17 01:22 Dose: 2 mg Admin: 04/10/17 23:06 Dose: 2 mg Morphine Sulfate (Morphine) 0 mg IVPUSH Q1H PRN PRN Reason: Pain (severe 7-10) Ondansetron HCl (Zofran) 4 mg IVPUSH Q6H PRN PRN Reason: Nausea/Vomiting - Assessment Assessment (Free Text/Narrative):: Patient is gradually being weaned off his vasopressors. He has had a relatively good day, although did develop acute atrial fibrillation when he sat on the edge of the bed. He currently denies any abdominal pain. LUNGS are clear to auscultation bilaterally. HEART is irregularly irregular. No murmur is noted. ABDOMEN is soft and nontender. The Luis A-Kiran is draining serous fluid. No purulence is noted and there is no significant blood present. - Plan Plan (Free Text/Narrative):: Continue aggressive resuscitation and weaning from his vasopressors. Consider getting him out of bed tomorrow. Consider discontinuing his Guerra catheter tomorrow. Will consider clear to full liquids tomorrow.
--- NOTE | 2017-04-11 18:19 | OR ---
SURGEON: Andrey Villatoro M.D. DATE OF PROCEDURE: 04/10/2017 OPERATION PERFORMED: Laparoscopic appendectomy. ANESTHESIA: General endotracheal. ASA CLASSIFICATION: IIIE. PREOPERATIVE DIAGNOSIS: Acute abdomen, ruptured appendicitis on CT scan. POSTOPERATIVE DIAGNOSIS: Ruptured appendicitis with diffuse peritonitis. INTRAOPERATIVE FLUID REPLACEMENT: 2300 mL of crystalloid. BLOOD LOSS: 15 mL. DESCRIPTION OF PROCEDURE: The patient was taken to the operating room and placed on the operating table in the supine position. Time-out was called for appropriate identification of the patient and procedure. Sequential compression boots had already been placed. Following satisfactory attainment of general endotracheal anesthesia, the patient had a Guerra catheter placed. There was nemo colored urine present. The abdomen was then prepped with DuraPrep solution. Sterile drapes were applied. The skin just above the umbilicus was infiltrated with 0.5% Marcaine solution. Skin incision was made and deepened through the subcutaneous tissue. A Veress needle was introduced into the peritoneal cavity. Saline drop test was positive. Carbon dioxide pneumoperitoneum was established with the relief set at 13 cm of water. Once we had satisfactory pneumoperitoneum, 5 mm camera and port were placed through the supraumbilical incision. Under camera vision, 12 mm suprapubic port was placed. It should be noted that there was a very severe acute inflammatory process intraperitoneally. With the 12 [address] port in place, the patient was now positioned with his head down and rolled to the left. A third port was placed in the left lower quadrant. Skin was infiltrated with 0.5% Marcaine solution. After skin incision, the 5 mm port was placed through the left lower quadrant incision. The patient had multiple adhesions present on the right side of the abdomen requiring adhesiolysis with the use of the Harmonic scalpel and the [place] dissector. Once we had the adhesions taken down, we were able to locate the appendix. The mesoappendix was taken down with the Harmonic scalpel to its base. There did appear to be a rupture just at the base. Given that finding, it was elected to staple the base of the appendix and cecum with an Endo-ASIA stapler with a blue load. This did appear to seal the leak, and I did not see any leak after we irrigated the peritoneal cavity. The appendix was placed in an Endopouch and left in situ. The right lower quadrant was irrigated with 1 L of sterile saline followed by 500 mL of 1% Ancef solution. All fluid was aspirated until clear. There was a diffuse exudate present on the small bowel surface. No attempt was made to try and remove all of the exudate. The fluid was then aspirated from the right lower quadrant, as well as the right pelvis. A 10 mm flat Luis A-Kiran drain was placed through the 12 mm port and held in place with the 2 prong grasper. With that accomplished, the 12 mm port and Endopouch containing appendix were removed. The Luis A-Kiran drain was again checked for position and found to be along the right paracolic gutter. The Luis A-Kiran drain was then sutured to the skin with a 2-0 nylon suture. Under camera vision, the 5 mm left lower quadrant port was removed, and finally, the supraumbilical camera and port were removed. Wounds were inspected for hemostasis. No bleeding was noted. The incisions were then closed with skin clips and dressed with sterile Tegaderm pads. Sponge, needle, and instrument counts were all correct. The Guerra catheter will be left in place. The patient is in critical but stable condition at the present time, although does have 2 pressor agents to maintain blood pressure. Following placement of a central line, the patient was allowed to emerge from anesthesia and taken to recovery room in stable condition. MIKI POST /[id number]
--- NOTE | 2017-04-11 18:20 | CR ---
EXAMINATION: Portable chest radiograph. HISTORY: Central line placement. FINDINGS: The trachea is midline. There are low lung volumes. The cardiomediastinal silhouette is within normal limits. No pulmonary infiltrates, effusions or pneumothorax. There is a central line noted with tip projecting over the lower SVC. Osseous structures appear unremarkable. IMPRESSION: 1. Right-sided portacatheter noted with tip projecting over the lower SVC.
[2017-04-11] MEDS ORDERED: Diltiazem 25 MG/5 ML SDV IVPUSH ONE ×2 (20:49→22:19)
[2017-04-11 21:29] LABS: CHLORIDE,CL 106 mmol/L (98-110); SODIUM,NA 135 mmol/L (136-146)
[2017-04-11] MEDS: Diltiazem 100 MG in Sodium Chloride 0.9% 100 ML IV SCH (21:41)
[2017-04-11] MEDS ORDERED: LORazepam 2 MG/ML SDV IVPUSH ONE (22:18)
[2017-04-11] MEDS ORDERED: Sodium Chloride 0.9% 100 ML ONE (22:25)
[2017-04-11] MEDS ORDERED: Diltiazem 25 MG/5 ML SDV ONE (22:35)
[2017-04-11] MEDS: Heparin Sodium 5,000 Units/ML Vial SUBCUT SCH (22:51)
[2017-04-11] MEDS: Insulin Aspart 100 Units/ML 3 ML Pen SUBCUT SCH (23:29)
[2017-04-12] MEDS: metroNIDAZOLE/Normal Saline 500 MG in Premix Bag 1 BAG IV SCH ×3 (00:34→18:09)
[2017-04-12] MEDS: Metoclopramide 10 MG/2 ML SDV IVPUSH SCH ×4 (03:03→19:46)
[2017-04-12] MEDS: Diltiazem 100 MG in Sodium Chloride 0.9% 100 ML IV SCH ×3 (03:48→19:42)
[2017-04-12 05:49] LABS: CHLORIDE,CL 106 mmol/L (98-110); SODIUM,NA 137 mmol/L (136-146)
[2017-04-12] MEDS: Insulin Aspart 100 Units/ML 3 ML Pen SUBCUT SCH ×3 (06:55→17:29)
[2017-04-12] MEDS: Heparin Sodium 5,000 Units/ML Vial SUBCUT SCH ×3 (06:56→22:17)
--- NOTE | 2017-04-12 07:38 | PCM.SURGPN ---
- General Info Date of Service: 04/12/17 POD#: 2 Post-Op Diagnosis: Ruptured appendicitis w/ diffuse peritonitis. Functional Status: Reports: Pain Controlled, Other (Up in chair) - Review of Systems General: Reports: Weakness, Fatigue. Denies: Fever Pulmonary: Reports: Shortness of Breath. Denies: Pleuritic Chest Pain, Cough Cardiovascular: Reports: Other (Atrial fib with RVR). Denies: Chest Pain Gastrointestinal: Denies: Abdominal Pain, Constipation, Difficulty Swallowing, Flatus, Nausea, Vomiting Genitourinary: Reports: Other (Guerra in) Musculoskeletal: Denies: Neck Pain, Shoulder Pain, Arm Pain Skin: Denies: Cyanosis, Jaundice, Mottled Neurological: Reports: No Symptoms Psychiatric: Reports: No Symptoms - Patient Data Vitals - Most Recent: Last Vital Signs Temp 98.8 F 04/12/17 04:00 Pulse 90 04/12/17 03:48 Resp 21 H 04/12/17 07:00 BP 133/59 L 04/12/17 07:00 Pulse Ox 88 L 04/12/17 07:00 Weight - Most Recent: 255 lb 1.197 oz I&O - Last 24 Hours: Intake & Output 04/11/17 04/12/17 04/12/17 19:59 03:59 11:59 Intake Total 1788 200 475 Output Total 2275 1970 Balance -487 200 -1495 Lab Results Last 24 Hrs: Laboratory Results - last 24 hr 04/11/17 04/11/17 04/11/17 Range/Units 05:20 05:20 05:20 WBC 15.39 H (4.0-11.0) K/uL RBC 4.97 (4.50-5.90) M/uL Hgb 13.2 (13.0-17.0) g/dL Hct 41.7 (38.0-50.0) % MCV 83.9 (80.0-98.0) fL MCH 26.6 L (27.0-32.0) pg MCHC 31.7 (31.0-37.0) g/dL RDW Std Deviation 44.0 (28.0-62.0) fl RDW Coeff of Aureliano 14 (11.0-15.0) % Plt Count 213 (150-400) K/uL MPV 9.70 (7.40-12.00) fL Neutrophils % (Manual) 76 (48.0-80.0) % Band Neutrophils % 11 % Lymphocytes % (Manual) 8 L (16.0-40.0) % Monocytes % (Manual) 5 (0.0-15.0) % Nucleated RBC % 0.0 /100WBC Absolute Seg Neuts 11.7 H (1.4-5.7) Band Neutrophils # 1.7 Lymphocytes # (Manual) 1.2 (0.6-2.4) Monocytes # (Manual) 0.8 (0.0-0.8) ABG pH 7.318 L (7.35-7.45) ABG pCO2 39 (35-45) mmHG ABG pO2 90 (75-100) mmHG ABG HCO3 20 L (22-26) mEq/L ABG Total CO2 18.4 ABG Base Excess -5.5 L (-2.0-2.0) Lactate (0.20-2.00) mmol/L Sodium 136 (136-146) mmol/L Potassium 4.9 (3.5-5.1) mmol/L Chloride 106 (98-110) mmol/L Carbon Dioxide 18 L (21-31) mmol/L BUN 23 (6.0-23.0) mg/dL Creatinine 1.3 (0.6-1.5) mg/dL Est Cr Clr Drug Dosing 68.81 mL/min Estimated GFR (MDRD) 56.9 ml/min Glucose 146 H (60-110) mg/dL POC Glucose (60-110) mg/dL Calcium 8.8 (8.8-10.8) mg/dL Phosphorus (2.4-4.7) mg/dL Magnesium (1.5-2.3) mEq/L Total Bilirubin (0.1-1.5) mg/dL AST (5-40) IU/L ALT (8-54) IU/L Alkaline Phosphatase (40-150) Total Protein (6.0-8.0) g/dL Albumin (3.5-5.0) g/dL Globulin (2.0-3.5) g/dL Albumin/Globulin Ratio (1.3-2.8) 04/11/17 04/11/17 04/11/17 Range/Units 05:20 08:07 08:08 WBC (4.0-11.0) K/uL RBC (4.50-5.90) M/uL Hgb (13.0-17.0) g/dL Hct (38.0-50.0) % MCV (80.0-98.0) fL MCH (27.0-32.0) pg MCHC (31.0-37.0) g/dL RDW Std Deviation (28.0-62.0) fl RDW Coeff of Aureliano (11.0-15.0) % Plt Count (150-400) K/uL MPV (7.40-12.00) fL Neutrophils % (Manual) (48.0-80.0) % Band Neutrophils % % Lymphocytes % (Manual) (16.0-40.0) % Monocytes % (Manual) (0.0-15.0) % Nucleated RBC % /100WBC Absolute Seg Neuts (1.4-5.7) Band Neutrophils # Lymphocytes # (Manual) (0.6-2.4) Monocytes # (Manual) (0.0-0.8) ABG pH (7.35-7.45) ABG pCO2 (35-45) mmHG ABG pO2 (75-100) mmHG ABG HCO3 (22-26) mEq/L ABG Total CO2 ABG Base Excess (-2.0-2.0) Lactate 2.1 H (0.20-2.00) mmol/L Sodium (136-146) mmol/L Potassium (3.5-5.1) mmol/L Chloride (98-110) mmol/L Carbon Dioxide (21-31) mmol/L BUN (6.0-23.0) mg/dL Creatinine (0.6-1.5) mg/dL Est Cr Clr Drug Dosing mL/min Estimated GFR (MDRD) ml/min Glucose (60-110) mg/dL POC Glucose 122 H (60-110) mg/dL Calcium (8.8-10.8) mg/dL Phosphorus 3.8 (2.4-4.7) mg/dL Magnesium 1.2 L (1.5-2.3) mEq/L Total Bilirubin (0.1-1.5) mg/dL AST (5-40) IU/L ALT (8-54) IU/L Alkaline Phosphatase (40-150) Total Protein (6.0-8.0) g/dL Albumin (3.5-5.0) g/dL Globulin (2.0-3.5) g/dL Albumin/Globulin Ratio (1.3-2.8) 04/11/17 04/11/17 04/11/17 Range/Units 12:42 13:56 17:12 WBC (4.0-11.0) K/uL RBC (4.50-5.90) M/uL Hgb (13.0-17.0) g/dL Hct (38.0-50.0) % MCV (80.0-98.0) fL MCH (27.0-32.0) pg MCHC (31.0-37.0) g/dL RDW Std Deviation (28.0-62.0) fl RDW Coeff of Aureliano (11.0-15.0) % Plt Count (150-400) K/uL MPV (7.40-12.00) fL Neutrophils % (Manual) (48.0-80.0) % Band Neutrophils % % Lymphocytes % (Manual) (16.0-40.0) % Monocytes % (Manual) (0.0-15.0) % Nucleated RBC % /100WBC Absolute Seg Neuts (1.4-5.7) Band Neutrophils # Lymphocytes # (Manual) (0.6-2.4) Monocytes # (Manual) (0.0-0.8) ABG pH (7.35-7.45) ABG pCO2 (35-45) mmHG ABG pO2 (75-100) mmHG ABG HCO3 (22-26) mEq/L ABG Total CO2 ABG Base Excess (-2.0-2.0) Lactate 2.0 (0.20-2.00) mmol/L Sodium (136-146) mmol/L Potassium (3.5-5.1) mmol/L Chloride (98-110) mmol/L Carbon Dioxide (21-31) mmol/L BUN (6.0-23.0) mg/dL Creatinine (0.6-1.5) mg/dL Est Cr Clr Drug Dosing mL/min Estimated GFR (MDRD) ml/min Glucose (60-110) mg/dL POC Glucose 118 H 108 (60-110) mg/dL Calcium (8.8-10.8) mg/dL Phosphorus (2.4-4.7) mg/dL Magnesium (1.5-2.3) mEq/L Total Bilirubin (0.1-1.5) mg/dL AST (5-40) IU/L ALT (8-54) IU/L Alkaline Phosphatase (40-150) Total Protein (6.0-8.0) g/dL Albumin (3.5-5.0) g/dL Globulin (2.0-3.5) g/dL Albumin/Globulin Ratio (1.3-2.8) 04/11/17 04/11/17 04/11/17 Range/Units 19:50 21:01 23:26 WBC (4.0-11.0) K/uL RBC (4.50-5.90) M/uL Hgb (13.0-17.0) g/dL Hct (38.0-50.0) % MCV (80.0-98.0) fL MCH (27.0-32.0) pg MCHC (31.0-37.0) g/dL RDW Std Deviation (28.0-62.0) fl RDW Coeff of Aureliano (11.0-15.0) % Plt Count (150-400) K/uL MPV (7.40-12.00) fL Neutrophils % (Manual) (48.0-80.0) % Band Neutrophils % % Lymphocytes % (Manual) (16.0-40.0) % Monocytes % (Manual) (0.0-15.0) % Nucleated RBC % /100WBC Absolute Seg Neuts (1.4-5.7) Band Neutrophils # Lymphocytes # (Manual) (0.6-2.4) Monocytes # (Manual) (0.0-0.8) ABG pH 7.364 (7.35-7.45) ABG pCO2 39 (35-45) mmHG ABG pO2 63 L (75-100) mmHG ABG HCO3 22 (22-26) mEq/L ABG Total CO2 20.0 ABG Base Excess -3.1 L (-2.0-2.0) Lactate (0.20-2.00) mmol/L Sodium 135 L (136-146) mmol/L Potassium 4.6 (3.5-5.1) mmol/L Chloride 106 (98-110) mmol/L Carbon Dioxide 19 L (21-31) mmol/L BUN 20 (6.0-23.0) mg/dL Creatinine 1.0 (0.6-1.5) mg/dL Est Cr Clr Drug Dosing 89.46 mL/min Estimated GFR (MDRD) > 60.0 ml/min Glucose 104 (60-110) mg/dL POC Glucose 112 H (60-110) mg/dL Calcium 9.0 (8.8-10.8) mg/dL Phosphorus (2.4-4.7) mg/dL Magnesium 1.7 (1.5-2.3) mEq/L Total Bilirubin (0.1-1.5) mg/dL AST (5-40) IU/L ALT (8-54) IU/L Alkaline Phosphatase (40-150) Total Protein (6.0-8.0) g/dL Albumin (3.5-5.0) g/dL Globulin (2.0-3.5) g/dL Albumin/Globulin Ratio (1.3-2.8) 04/12/17 04/12/17 04/12/17 Range/Units 05:18 05:18 06:51 WBC 13.26 H (4.0-11.0) K/uL RBC 4.71 (4.50-5.90) M/uL Hgb 12.6 L (13.0-17.0) g/dL Hct 39.6 (38.0-50.0) % MCV 84.1 (80.0-98.0) fL MCH 26.8 L (27.0-32.0) pg MCHC 31.8 (31.0-37.0) g/dL RDW Std Deviation 44.6 (28.0-62.0) fl RDW Coeff of Aureliano 15 (11.0-15.0) % Plt Count 192 (150-400) K/uL MPV 9.40 (7.40-12.00) fL Neutrophils % (Manual) 82 H (48.0-80.0) % Band Neutrophils % 10 % Lymphocytes % (Manual) 8 L (16.0-40.0) % Monocytes % (Manual) (0.0-15.0) % Nucleated RBC % 0.0 /100WBC Absolute Seg Neuts 10.9 H (1.4-5.7) Band Neutrophils # 1.3 Lymphocytes # (Manual) 1.1 (0.6-2.4) Monocytes # (Manual) (0.0-0.8) ABG pH (7.35-7.45) ABG pCO2 (35-45) mmHG ABG pO2 (75-100) mmHG ABG HCO3 (22-26) mEq/L ABG Total CO2 ABG Base Excess (-2.0-2.0) Lactate (0.20-2.00) mmol/L Sodium 137 (136-146) mmol/L Potassium 4.7 (3.5-5.1) mmol/L Chloride 106 (98-110) mmol/L Carbon Dioxide 20 L (21-31) mmol/L BUN 19 (6.0-23.0) mg/dL Creatinine 1.0 (0.6-1.5) mg/dL Est Cr Clr Drug Dosing 89.46 mL/min Estimated GFR (MDRD) > 60.0 ml/min Glucose 122 H (60-110) mg/dL POC Glucose 120 H (60-110) mg/dL Calcium 9.4 (8.8-10.8) mg/dL Phosphorus (2.4-4.7) mg/dL Magnesium (1.5-2.3) mEq/L Total Bilirubin 0.4 (0.1-1.5) mg/dL AST 18 (5-40) IU/L ALT 17 (8-54) IU/L Alkaline Phosphatase 68 (40-150) Total Protein 6.6 (6.0-8.0) g/dL Albumin 3.1 L (3.5-5.0) g/dL Globulin 3.5 (2.0-3.5) g/dL Albumin/Globulin Ratio 0.9 L (1.3-2.8) Robinson Results Last 24 Hrs: Microbiology 04/10/17 14:30 Aerobic Blood Culture - Preliminary Blood - Venous - Lab Draw NO GROWTH AFTER 1 DAY Anaerobic Blood Culture - Preliminary NO GROWTH AFTER 1 DAY 04/10/17 14:20 Aerobic Blood Culture - Preliminary Blood - Venous NO GROWTH AFTER 1 DAY Anaerobic Blood Culture - Preliminary NO GROWTH AFTER 1 DAY Med Orders - Current: Current Medications Famotidine (Pepcid) 20 mg IVPUSH BID [facility] Heparin Sodium (Porcine) (Heparin Sodium) 5,000 units SUBCUT Q8H [facility] Last Admin: 04/12/17 06:56 Dose: 5,000 units Levofloxacin/Dextrose 750 mg/ (Premix) 150 mls @ 100 mls/hr IV Q24H [facility] Last Admin: 04/11/17 14:50 Dose: Not Given Norepinephrine Bitartrate (Norepinephr-0.9% Nacl 4 Mg/250) 4 mg in 250 mls @ 7.5 mls/hr IV TITRATE NORM; 2 MCG/MIN PRN Reason: Protocol Last Titration: 04/11/17 04:39 Dose: 3 mcg/min, 11.25 mls/hr Vasopressin 100 units/ Sodium (Chloride) 100 mls @ 0 mls/hr IV TITRATE NORM; Per Protocol PRN Reason: Protocol Last Titration: 04/11/17 20:30 Dose: 0 units/min, 0 mls/hr Metronidazole 500 mg/ Premix 100 mls @ 100 mls/hr IV Q8H [facility] Last Admin: 04/12/17 00:34 Dose: 100 mls/hr Diltiazem HCl 100 mg/ Sodium (Chloride) 100 mls @ 5 mls/hr IV TITRATE NORM; 5 MG /HR PRN Reason: Protocol Last Titration: 04/12/17 05:15 Dose: 5 mg/hr, 5 mls/hr Sodium Chloride (Normal Saline) 1,000 mls @ 75 mls/hr IV ASDIRECTED [facility] Insulin Aspart (Novolog) 0 unit SUBCUT Q6H NORM PRN Reason: Protocol Last Admin: 04/12/17 06:55 Dose: Not Given Metoclopramide HCl (Reglan) 10 mg IVPUSH Q6H [facility] Last Admin: 04/12/17 03:03 Dose: 10 mg Morphine Sulfate (Morphine) 2 mg IVPUSH Q2H PRN PRN Reason: Pain Last Admin: 04/11/17 21:32 Dose: 2 mg Morphine Sulfate (Morphine) 0 mg IVPUSH Q1H PRN PRN Reason: Pain (severe 7-10) Ondansetron HCl (Zofran) 4 mg IVPUSH Q6H PRN PRN Reason: Nausea/Vomiting Discontinued Medications Bupivacaine HCl (Marcaine 0.5%) Confirm Administered Dose 30 ml .ROUTE .STK-MED ONE Stop: 04/10/17 17:34 Cefazolin Sodium (Ancef) Confirm Administered Dose 1 gm .ROUTE .STK-MED ONE Stop: 04/10/17 17:34 Digoxin (Lanoxin) 250 mcg IVPUSH ONETIME ONE Stop: 04/11/17 15:00 Last Admin: 04/11/17 19:41 Dose: Not Given Digoxin (Lanoxin) Confirm Administered Dose 500 mcg .ROUTE .STK-MED ONE Stop: 04/11/17 15:26 Last Admin: 04/11/17 19:41 Dose: Not Given Digoxin (Lanoxin) 250 mcg IVPUSH ONETIME ONE Stop: 04/11/17 18:39 Last Admin: 04/11/17 19:45 Dose: 250 mcg Diltiazem HCl (Diltiazem) 20 mg IVPUSH ONETIME ONE Stop: 04/11/17 20:50 Last Admin: 04/11/17 21:05 Dose: 20 mg Diltiazem HCl (Diltiazem) 20 mg IVPUSH ONETIME ONE Stop: 04/11/17 22:20 Last Admin: 04/11/17 22:36 Dose: 20 mg Diltiazem HCl (Diltiazem) Confirm Administered Dose 25 mg .ROUTE .STK-MED ONE Stop: 04/11/17 22:36 Last Admin: 04/11/17 22:42 Dose: Not Given Etomidate (Amidate) Confirm Administered Dose 40 mg IVPUSH .STK-MED ONE Stop: 04/10/17 17:22 Fentanyl (Sublimaze) Confirm Administered Dose 250 mcg .ROUTE .STK-MED ONE Stop: 04/10/17 17:22 Heparin Sodium (Porcine) (Heparin Sodium) Confirm Administered Dose 5,000 units .ROUTE .STK-MED ONE Stop: 04/11/17 12:51 Last Admin: 04/11/17 19:41 Dose: Not Given Metronidazole 500 mg/ Premix 100 mls @ 100 mls/hr IV Q8H NORM Last Admin: 04/10/17 17:47 Dose: Not Given Sodium Chloride (Normal Saline) 500 mls @ 1,000 mls/hr IV .BOLUS NORM Last Admin: 04/10/17 15:45 Dose: 1,000 mls/hr Sodium Chloride (Normal Saline) 1,000 mls @ 125 mls/hr IV ASDIRECTED NORM Last Admin: 04/10/17 22:48 Dose: 150 mls/hr Dopamine HCl/Dextrose (Dopamine In D5w 400 Mg/250 Ml) 400 mg in 250 mls @ 8.67 mls/hr IV TITRATE NORM; 2 MCG/KG/MIN PRN Reason: Protocol Sodium Chloride (Normal Saline) Confirm Administered Dose 20 mls @ as directed .ROUTE .STK-MED ONE Stop: 04/10/17 17:24 Sodium Chloride (Normal Saline) 500 mls @ 999 mls/hr IV .BOLUS NORM Last Admin: 04/10/17 18:11 Dose: Not Given Acetaminophen (Ofirmev) Confirm Administered Dose 100 mls @ as directed IV .STK- MED ONE Stop: 04/10/17 19:13 Lactated Ringer's (Ringers, Lactated) 1,000 mls @ 175 mls/hr IV ASDIRECTED NORM Stop: 04/11/17 00:08 Sodium Chloride (Normal Saline) 1,000 mls @ 150 mls/hr IV ASDIRECTED NORM Last Infusion: 04/11/17 23:15 Dose: 75 mls/hr Magnesium Sulfate (Magnesium Sulfate 2 Gm In Water 50 Ml) Confirm Administered Dose 50 mls @ as directed .ROUTE .STK-MED ONE Stop: 04/11/17 12:51 Last Admin: 04/11/17 19:41 Dose: Not Given Sodium Chloride (Normal Saline) Confirm Administered Dose 100 mls @ as directed .ROUTE .STK-MED ONE Stop: 04/11/17 22:26 Last Admin: 04/11/17 22:29 Dose: Not Given Ketamine HCl (Ketalar) Confirm Administered Dose 500 mg .ROUTE .STK-MED ONE Stop: 04/10/17 17:22 Lidocaine (Xylocaine-Mpf 2%) Confirm Administered Dose 5 ml .ROUTE .STK-MED ONE Stop: 04/10/17 17:22 Lorazepam (Ativan) 1 mg IVPUSH ONETIME ONE Stop: 04/11/17 22:19 Last Admin: 04/11/17 22:26 Dose: 1 mg Midazolam HCl (Versed 1 Mg/Ml) Confirm Administered Dose 2 mg .ROUTE .STK-MED ONE Stop: 04/10/17 17:22 Ondansetron HCl (Zofran) 4 mg IVPUSH Q4H PRN PRN Reason: Nausea Ondansetron HCl (Zofran) Confirm Administered Dose 4 mg .ROUTE .STK-MED ONE Stop: 04/10/17 17:22 Phenylephrine HCl (Phenylephrine In Ns 100 Mcg/Ml) Confirm Administered Dose 1 mg .ROUTE .STK-MED ONE Stop: 04/10/17 18:15 Rocuronium Robbins (Zemuron) Confirm Administered Dose 100 mg .ROUTE .STK-MED ONE Stop: 04/10/17 17:22 Succinylcholine Chloride (Succinylcholine In Ns Pf) Confirm Administered Dose 200 mg .ROUTE .STK-MED ONE Stop: 04/10/17 17:22 - Exam Wound/Incisions: Dressing Dry and Intact, Drainage (JADON serous only) Quality Assessment: Supplemental Oxygen, Central Line/PICC, Urine Catheter, DVT Prophylaxis General: Alert, Oriented, Cooperative, No Acute Distress HEENT: Pupils Equal, Pupils Reactive Neck: Supple Lungs: Clear to Auscultation, Normal Respiratory Effort Cardiovascular: Irregular Rhythm (A fib with RVR) GI/Abdominal Exam: Normal Bowel Sounds, Soft, Non-Tender Extremities: Normal Inspection Skin: Warm, Dry, Intact Neurological: No New Focal Deficit Psy/Mental Status: Alert, Normal Affect, Normal Mood - Problem List & Annotations (1) Acute appendicitis with rupture SNOMED Code(s): 28401451 Code(s): K35.2 - ACUTE APPENDICITIS WITH GENERALIZED PERITONITIS Status: Acute Priority: High Current Visit: Yes (2) Acute kidney injury (nontraumatic) SNOMED Code(s): 37928255 Code(s): N17.9 - ACUTE KIDNEY FAILURE, UNSPECIFIED Status: Acute Priority : High Current Visit: Yes (3) Diabetes 1.5, managed as type 2 SNOMED Code(s): 551516806 Code(s): E10.9 - TYPE 1 DIABETES MELLITUS WITHOUT COMPLICATIONS Status: Acute Priority: High Current Visit: Yes (4) Coronary artery disease SNOMED Code(s): 15881227 Code(s): I25.10 - ATHSCL HEART DISEASE OF [place] CORONARY ARTERY W/O ANG PCTRS Status: Acute Priority: Medium Current Visit: Yes Qualifiers: Associated angina: without angina (5) Myocardial infarction, 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 SNOMED Code(s): 6733133 Code(s): I25.2 - OLD MYOCARDIAL INFARCTION Status: Acute Priority: Medium Current Visit: Yes - Problem List Review Problem List Initiated/Reviewed/Updated: Yes - My Orders Last 24 Hours: Active Orders 24 hr Category Date Time Status Blood Glucose Check, Bedside [] Q6H Care 04/11/17 22:00 Active RT Communication [] Click to Edit Care 04/11/17 22:21 Active Clear Liquid Diet [DIET] Diet 04/12/17 Lunch Ordered Nothing Per Oral Diet [DIET] Diet 04/11/17 Dinner Active CXR [Chest 1V Frontal] [CR] Stat Exams 04/11/17 22:20 Taken Diltiazem [Cardizem] 100 mg Med 04/11/17 21:00 Active Sodium Chloride 0.9% [Normal Saline] 100 ml IV TITRATE Famotidine [Pepcid] Med 04/12/17 09:00 Active 20 mg IVPUSH BID Heparin Sodium Med 04/11/17 22:30 Active 5,000 units SUBCUT Q8H Insulin Aspart [NovoLOG] Med 04/12/17 00:00 Active See Protocol SUBCUT Q6H Sodium Chloride 0.9% [Normal Saline] 1,000 ml Med 04/11/17 23:15 Active IV ASDIRECTED Medication Orders Famotidine (Pepcid) 20 mg IVPUSH BID NORM Heparin Sodium (Porcine) (Heparin Sodium) 5,000 units SUBCUT Q8H NORM Last Admin: 04/12/17 06:56 Dose: 5,000 units Admin: 04/11/17 22:51 Dose: 5,000 units Levofloxacin/Dextrose 750 mg/ (Premix) 150 mls @ 100 mls/hr IV Q24H NORM Last Admin: 04/11/17 14:50 Dose: Admin: 04/10/17 15:40 Dose: 100 mls/hr Norepinephrine Bitartrate (Norepinephr-0.9% Nacl 4 Mg/250) 4 mg in 250 mls @ 7.5 mls/hr IV TITRATE NORM; 2 MCG/MIN PRN Reason: Protocol Last Titration: 04/11/17 04:39 Dose: 3 mcg/min, 11.25 mls/hr Titration: 04/11/17 04:11 Dose: 4 mcg/min, 15 mls/hr Titration: 04/11/17 02:34 Dose: 5 mcg/min, 18.75 mls/hr Titration: 04/11/17 01:45 Dose: 6 mcg/min, 22.5 mls/hr Admin: 04/11/17 00:41 Dose: 8 mcg/min, 30 mls/hr Titration: 04/11/17 00:41 Dose: 8 mcg/min, 30 mls/hr Titration: 04/10/17 22:25 Dose: 8 mcg/min, 30 mls/hr Titration: 04/10/17 22:08 Dose: 12 mcg/min, 45 mls/hr Admin: 04/10/17 21:50 Dose: 15 mcg/min, 56.25 mls/hr Vasopressin 100 units/ Sodium (Chloride) 100 mls @ 0 mls/hr IV TITRATE NORM; Per Protocol PRN Reason: Protocol Last Titration: 04/11/17 20:30 Dose: 0 units/min, 0 mls/hr Titration: 04/11/17 20:00 Dose: 0.01 units/min, 0.6 mls/hr Titration: 04/11/17 19:39 Dose: 0.02 units/min, 1.2 mls/hr Admin: 04/11/17 19:14 Dose: 0.027 units/min, 1.62 mls/hr Titration: 04/11/17 19:14 Dose: 0.027 units/min, 1.62 mls/hr Titration: 04/11/17 18:55 Dose: 0.027 units/min, 1.62 mls/hr Titration: 04/11/17 18:00 Dose: 0.032 units/min, 1.92 mls/hr Titration: 04/11/17 17:15 Dose: 0.037 units/min, 2.22 mls/hr Titration: 04/11/17 16:45 Dose: 0.042 units/min, 2.52 mls/hr Titration: 04/11/17 15:52 Dose: 0.047 units/min, 2.82 mls/hr Titration: 04/11/17 14:45 Dose: 0.052 units/min, 3.12 mls/hr Titration: 04/11/17 13:40 Dose: 0.057 units/min, 3.42 mls/hr Titration: 04/11/17 12:38 Dose: 0.062 units/min, 3.72 mls/hr Admin: 04/10/17 22:26 Dose: 0.067 units/min, 4.02 mls/hr Metronidazole 500 mg/ Premix 100 mls @ 100 mls/hr IV Q8H NORM Last Admin: 04/12/17 00:34 Dose: 100 mls/hr Infusion: 04/11/17 18:55 Dose: 100 mls/hr Admin: 04/11/17 17:55 Dose: 100 mls/hr Admin: 04/11/17 14:49 Dose: Infusion: 04/11/17 01:58 Dose: 100 mls/hr Admin: 04/11/17 00:58 Dose: 100 mls/hr Infusion: 04/10/17 18:09 Dose: 100 mls/hr Admin: 04/10/17 17:09 Dose: 100 mls/hr Diltiazem HCl 100 mg/ Sodium (Chloride) 100 mls @ 5 mls/hr IV TITRATE NORM; 5 MG /HR PRN Reason: Protocol Last Titration: 04/12/17 05:15 Dose: 5 mg/hr, 5 mls/hr Admin: 04/12/17 03:48 Dose: 10 mg/hr, 10 mls/hr Titration: 04/12/17 03:48 Dose: 15 mg/hr, 15 mls/hr Titration: 04/11/17 22:35 Dose: 15 mg/hr, 15 mls/hr Titration: 04/11/17 22:15 Dose: 10 mg/hr, 10 mls/hr Admin: 04/11/17 21:41 Dose: 5 mg/hr, 5 mls/hr Sodium Chloride (Normal Saline) 1,000 mls @ 75 mls/hr IV ASDIRECTED NORM Insulin Aspart (Novolog) 0 unit SUBCUT Q6H NORM PRN Reason: Protocol Last Admin: 04/12/17 06:55 Dose: Not Given Admin: 04/11/17 23:29 Dose: Not Given Metoclopramide HCl (Reglan) 10 mg IVPUSH Q6H NORM Last Admin: 04/12/17 03:03 Dose: 10 mg Admin: 04/11/17 21:05 Dose: 10 mg Admin: 04/11/17 14:49 Dose: Admin: 04/11/17 14:49 Dose: Admin: 04/11/17 02:34 Dose: 10 mg Admin: 04/10/17 22:33 Dose: 10 mg Morphine Sulfate (Morphine) 2 mg IVPUSH Q2H PRN PRN Reason: Pain Last Admin: 04/11/17 21:32 Dose: 2 mg Admin: 04/11/17 01:22 Dose: 2 mg Admin: 04/10/17 23:06 Dose: 2 mg Morphine Sulfate (Morphine) 0 mg IVPUSH Q1H PRN PRN Reason: Pain (severe 7-10) Ondansetron HCl (Zofran) 4 mg IVPUSH Q6H PRN PRN Reason: Nausea/Vomiting - Assessment Assessment (Free Text/Narrative):: From a surgical standpoint patient is doing reasonably well. Abdomen is soft and nontender. No flatus. Main problem is cardiac related with new onset A fib with RVR. Now on a Cardizem drip. WBC slowly coming down. Renal function improving. - Plan Plan (Free Text/Narrative):: See orders. Will start clear liquids.
[2017-04-12] MEDS: Famotidine 20 MG/2 ML SDV IVPUSH SCH ×2 (08:32→20:01)
[2017-04-12] MEDS ORDERED: Diltiazem 25 MG/5 ML SDV ONE (09:01)
--- NOTE | 2017-04-12 09:36 | CR ---
EXAM DATE: 04/10/17 PATIENT'S AGE: 56 Patient: SHLOMO ROBERT Facility: [place], [place] Site . Site : 1960 Study: XRay Chest [id number]/19/2017 10:39:54 PM Ordering Physician: Iva Vail Final Report: INDICATION: Hypoxia. Technique: AP portable chest x-ray. Comparison: Earlier today. Findings: Heart size normal. Increased bronchovascular markings in the left lung base medially with associated infiltrate or atelectasis focally more apparent. Linear opaque atelectasis in the right upper and lower lungs new. Lungs otherwise clear. Right central line is either no longer present or less well visualized. Remainder negative. Dictated by Esequiel Pretty MD @ Apr 11 2017 11:23PM (Electronic Signature) Report Signed by Proxy. DOUGLAS
[2017-04-12] MEDS: Metoprolol Succinate 50 MG Tab.ER PO SCH (11:49)
[2017-04-12] MEDS ORDERED: Diltiazem 25 MG/5 ML SDV IVPUSH PRN (12:35)
[2017-04-12] MEDS: Sodium Chloride 0.9% 1,000 ML IV SCH (13:03)
[2017-04-12] MEDS: Levofloxacin/Dextrose 5%-Water 750 MG in Premix Bag 1 BAG IV SCH (13:36)
--- NOTE | 2017-04-12 17:16 | PCM.SN ---
- Free Text/Narrative Note: Patient has had a pretty good day. T max 100.8. No N/V. No flatus. LUNGS with few crackles in left base. Ht RRR, still tachycardic. JADON 100 ml/12 hours and serosanguineous. Slight redness around suprapubic incision. No purulent drainage. Overall, patient is showing slow improvement. Path report showed acute appendicitis and periappendicitis. Labs ordered for am. Will pull JADON when drainage slows.
[2017-04-13] MEDS: metroNIDAZOLE/Normal Saline 500 MG in Premix Bag 1 BAG IV SCH ×3 (00:37→16:30)
[2017-04-13] MEDS: Metoclopramide 10 MG/2 ML SDV IVPUSH SCH ×4 (03:00→19:59)
[2017-04-13] MEDS: Sodium Chloride 0.9% 1,000 ML IV SCH ×2 (05:56→21:06)
[2017-04-13] MEDS: Heparin Sodium 5,000 Units/ML Vial SUBCUT SCH ×3 (06:28→23:06)
[2017-04-13] MEDS: Insulin Aspart 100 Units/ML 3 ML Pen SUBCUT SCH ×3 (06:34→16:29)
[2017-04-13 06:46] LABS: CHLORIDE,CL 105 mmol/L (98-110); SODIUM,NA 136 mmol/L (136-146)
--- NOTE | 2017-04-13 07:44 | PCM.PN ---
- General Info Date of Service: 04/12/17 Subjective Update: No overnight events. Patient reports improvement. No nausea or vomiting. Pain is controlled Functional Status: Reports: Pain Controlled - Review of Systems General: Reports: Weakness HEENT: Reports: No Symptoms Pulmonary: Reports: No Symptoms Cardiovascular: Reports: No Symptoms Gastrointestinal: Reports: Abdominal Pain Genitourinary: Reports: No Symptoms Musculoskeletal: Reports: No Symptoms Skin: Reports: No Symptoms Neurological: Reports: No Symptoms Psychiatric: Reports: No Symptoms - Patient Data Vitals - Most Recent: Last Vital Signs Temp 36.4 C 04/13/17 04:00 Pulse 108 H 04/12/17 19:42 Resp 20 04/13/17 07:00 BP 158/72 H 04/13/17 07:00 Pulse Ox 96 04/13/17 07:00 Weight - Most Recent: 115.7 kg I&O - Last 24 Hours: Intake & Output 04/12/17 04/13/17 04/13/17 22:59 06:59 14:59 Intake Total 1739 2063 Output Total 1315 1185 Balance 424 878 Lab Results Last 24 Hours: Laboratory Results - last 24 hr 04/12/17 04/12/17 04/13/17 Range/Units 11:39 16:41 05:50 WBC 14.56 H (4.0-11.0) K/uL RBC 5.01 (4.50-5.90) M/uL Hgb 13.5 (13.0-17.0) g/dL Hct 42.5 (38.0-50.0) % MCV 84.8 (80.0-98.0) fL MCH 26.9 L (27.0-32.0) pg MCHC 31.8 (31.0-37.0) g/dL RDW Std Deviation 45.6 (28.0-62.0) fl RDW Coeff of Aureliano 15 (11.0-15.0) % Plt Count 215 (150-400) K/uL MPV 9.40 (7.40-12.00) fL Neut % (Auto) 86.0 H (48.0-80.0) % Lymph % (Auto) 5.2 L (16.0-40.0) % Pike % (Auto) 8.6 (0.0-15.0) % Eos % (Auto) 0.1 (0.0-7.0) % Baso % (Auto) 0.1 (0.0-1.5) % Neut # (Auto) 12.5 H (1.4-5.7) K/uL Lymph # (Auto) 0.8 (0.6-2.4) K/uL Pike # (Auto) 1.3 H (0.0-0.8) K/uL Eos # (Auto) 0.0 (0.0-0.7) K/uL Baso # (Auto) 0.0 (0.0-0.1) K/uL Nucleated RBC % 0.0 /100WBC Nucleated RBCs # 0 K/uL Sodium (136-146) mmol/L Potassium (3.5-5.1) mmol/L Chloride (98-110) mmol/L Carbon Dioxide (21-31) mmol/L BUN (6.0-23.0) mg/dL Creatinine (0.6-1.5) mg/dL Est Cr Clr Drug Dosing mL/min Estimated GFR (MDRD) ml/min Glucose (60-110) mg/dL POC Glucose 126 H 116 H (60-110) mg/dL Calcium (8.8-10.8) mg/dL Magnesium (1.5-2.3) mEq/L Total Bilirubin (0.1-1.5) mg/dL AST (5-40) IU/L ALT (8-54) IU/L Alkaline Phosphatase (40-150) Total Protein (6.0-8.0) g/dL Albumin (3.5-5.0) g/dL Globulin (2.0-3.5) g/dL Albumin/Globulin Ratio (1.3-2.8) 04/13/17 Range/Units 05:50 WBC (4.0-11.0) K/uL RBC (4.50-5.90) M/uL Hgb (13.0-17.0) g/dL Hct (38.0-50.0) % MCV (80.0-98.0) fL MCH (27.0-32.0) pg MCHC (31.0-37.0) g/dL RDW Std Deviation (28.0-62.0) fl RDW Coeff of Aureliano (11.0-15.0) % Plt Count (150-400) K/uL MPV (7.40-12.00) fL Neut % (Auto) (48.0-80.0) % Lymph % (Auto) (16.0-40.0) % Pike % (Auto) (0.0-15.0) % Eos % (Auto) (0.0-7.0) % Baso % (Auto) (0.0-1.5) % Neut # (Auto) (1.4-5.7) K/uL Lymph # (Auto) (0.6-2.4) K/uL Pike # (Auto) (0.0-0.8) K/uL Eos # (Auto) (0.0-0.7) K/uL Baso # (Auto) (0.0-0.1) K/uL Nucleated RBC % /100WBC Nucleated RBCs # K/uL Sodium 136 (136-146) mmol/L Potassium 4.3 (3.5-5.1) mmol/L Chloride 105 (98-110) mmol/L Carbon Dioxide 21 (21-31) mmol/L BUN 17 (6.0-23.0) mg/dL Creatinine 1.0 (0.6-1.5) mg/dL Est Cr Clr Drug Dosing 89.46 mL/min Estimated GFR (MDRD) > 60.0 ml/min Glucose 117 H (60-110) mg/dL POC Glucose (60-110) mg/dL Calcium 9.3 (8.8-10.8) mg/dL Magnesium 1.4 L (1.5-2.3) mEq/L Total Bilirubin 0.4 (0.1-1.5) mg/dL AST 10 (5-40) IU/L ALT 13 (8-54) IU/L Alkaline Phosphatase 71 (40-150) Total Protein 6.6 (6.0-8.0) g/dL Albumin 3.2 L (3.5-5.0) g/dL Globulin 3.4 (2.0-3.5) g/dL Albumin/Globulin Ratio 0.9 L (1.3-2.8) Robinson Results Last 24 Hours: Microbiology 04/10/17 14:30 Aerobic Blood Culture - Preliminary Blood - Venous - Lab Draw NO GROWTH AFTER 2 DAYS Anaerobic Blood Culture - Preliminary NO GROWTH AFTER 2 DAYS 04/10/17 14:20 Aerobic Blood Culture - Preliminary Blood - Venous NO GROWTH AFTER 2 DAYS Anaerobic Blood Culture - Preliminary NO GROWTH AFTER 2 DAYS Med Orders - Current: Current Medications Diltiazem HCl (Diltiazem) 0 mg IVPUSH Q1H PRN; Protocol PRN Reason: Arrhythmia Last Admin: 04/12/17 13:04 Dose: 5 mg Famotidine (Pepcid) 20 mg IVPUSH BID [facility] Last Admin: 04/12/17 20:01 Dose: 20 mg Heparin Sodium (Porcine) (Heparin Sodium) 5,000 units SUBCUT Q8H [facility] Last Admin: 04/13/17 06:28 Dose: 5,000 units Levofloxacin/Dextrose 750 mg/ (Premix) 150 mls @ 100 mls/hr IV Q24H [facility] Last Admin: 04/12/17 13:36 Dose: 100 mls/hr Metronidazole 500 mg/ Premix 100 mls @ 100 mls/hr IV Q8H [facility] Last Admin: 04/13/17 00:37 Dose: 100 mls/hr Diltiazem HCl 100 mg/ Sodium (Chloride) 100 mls @ 5 mls/hr IV TITRATE NORM; 5 MG /HR PRN Reason: Protocol Last Titration: 04/13/17 02:05 Dose: 5 mg/hr, 5 mls/hr Sodium Chloride (Normal Saline) 1,000 mls @ 75 mls/hr IV ASDIRECTED [facility] Last Admin: 04/13/17 05:56 Dose: 75 mls/hr Insulin Aspart (Novolog) 0 unit SUBCUT TIDAC [facility] PRN Reason: Protocol Last Admin: 04/13/17 06:34 Dose: Not Given Metoclopramide HCl (Reglan) 10 mg IVPUSH Q6H [facility] Last Admin: 04/13/17 03:00 Dose: 10 mg Metoprolol Succinate (Toprol Xl) 50 mg PO DAILY [facility] Last Admin: 04/12/17 11:49 Dose: 50 mg Morphine Sulfate (Morphine) 2 mg IVPUSH Q2H PRN PRN Reason: Pain Last Admin: 04/11/17 21:32 Dose: 2 mg Morphine Sulfate (Morphine) 0 mg IVPUSH Q1H PRN PRN Reason: Pain (severe 7-10) Ondansetron HCl (Zofran) 4 mg IVPUSH Q6H PRN PRN Reason: Nausea/Vomiting Discontinued Medications Bupivacaine HCl (Marcaine 0.5%) Confirm Administered Dose 30 ml .ROUTE .STK-MED ONE Stop: 04/10/17 17:34 Cefazolin Sodium (Ancef) Confirm Administered Dose 1 gm .ROUTE .STK-MED ONE Stop: 04/10/17 17:34 Digoxin (Lanoxin) 250 mcg IVPUSH ONETIME ONE Stop: 04/11/17 15:00 Last Admin: 04/11/17 19:41 Dose: Not Given Digoxin (Lanoxin) Confirm Administered Dose 500 mcg .ROUTE .STK-MED ONE Stop: 04/11/17 15:26 Last Admin: 04/11/17 19:41 Dose: Not Given Digoxin (Lanoxin) 250 mcg IVPUSH ONETIME ONE Stop: 04/11/17 18:39 Last Admin: 04/11/17 19:45 Dose: 250 mcg Diltiazem HCl (Diltiazem) 20 mg IVPUSH ONETIME ONE Stop: 04/11/17 20:50 Last Admin: 04/11/17 21:05 Dose: 20 mg Diltiazem HCl (Diltiazem) 20 mg IVPUSH ONETIME ONE Stop: 04/11/17 22:20 Last Admin: 04/11/17 22:36 Dose: 20 mg Diltiazem HCl (Diltiazem) Confirm Administered Dose 25 mg .ROUTE .STK-MED ONE Stop: 04/11/17 22:36 Last Admin: 04/11/17 22:42 Dose: Not Given Diltiazem HCl (Diltiazem) Confirm Administered Dose 25 mg .ROUTE .STK-MED ONE Stop: 04/12/17 09:02 Last Admin: 04/12/17 09:07 Dose: 5 mg Etomidate (Amidate) Confirm Administered Dose 40 mg IVPUSH .STK-MED ONE Stop: 04/10/17 17:22 Fentanyl (Sublimaze) Confirm Administered Dose 250 mcg .ROUTE .STK-MED ONE Stop: 04/10/17 17:22 Heparin Sodium (Porcine) (Heparin Sodium) Confirm Administered Dose 5,000 units .ROUTE .STK-MED ONE Stop: 04/11/17 12:51 Last Admin: 04/11/17 19:41 Dose: Not Given Metronidazole 500 mg/ Premix 100 mls @ 100 mls/hr IV Q8H NORM Last Admin: 04/10/17 17:47 Dose: Not Given Sodium Chloride (Normal Saline) 500 mls @ 1,000 mls/hr IV .BOLUS NORM Last Admin: 04/10/17 15:45 Dose: 1,000 mls/hr Sodium Chloride (Normal Saline) 1,000 mls @ 125 mls/hr IV ASDIRECTED NORM Last Admin: 04/10/17 22:48 Dose: 150 mls/hr Dopamine HCl/Dextrose (Dopamine In D5w 400 Mg/250 Ml) 400 mg in 250 mls @ 8.67 mls/hr IV TITRATE NORM; 2 MCG/KG/MIN PRN Reason: Protocol Norepinephrine Bitartrate (Norepinephr-0.9% Nacl 4 Mg/250) 4 mg in 250 mls @ 7.5 mls/hr IV TITRATE NORM; 2 MCG/MIN PRN Reason: Protocol Last Titration: 04/11/17 04:39 Dose: 3 mcg/min, 11.25 mls/hr Vasopressin 100 units/ Sodium (Chloride) 100 mls @ 0 mls/hr IV TITRATE NORM; Per Protocol PRN Reason: Protocol Last Titration: 04/11/17 20:30 Dose: 0 units/min, 0 mls/hr Sodium Chloride (Normal Saline) Confirm Administered Dose 20 mls @ as directed .ROUTE .STK-MED ONE Stop: 04/10/17 17:24 Sodium Chloride (Normal Saline) 500 mls @ 999 mls/hr IV .BOLUS NORM Last Admin: 04/10/17 18:11 Dose: Not Given Acetaminophen (Ofirmev) Confirm Administered Dose 100 mls @ as directed IV .STK- MED ONE Stop: 04/10/17 19:13 Lactated Ringer's (Ringers, Lactated) 1,000 mls @ 175 mls/hr IV ASDIRECTED NORM Stop: 04/11/17 00:08 Sodium Chloride (Normal Saline) 1,000 mls @ 150 mls/hr IV ASDIRECTED NORM Last Infusion: 04/11/17 23:15 Dose: 75 mls/hr Magnesium Sulfate (Magnesium Sulfate 2 Gm In Water 50 Ml) Confirm Administered Dose 50 mls @ as directed .ROUTE .STK-MED ONE Stop: 04/11/17 12:51 Last Admin: 04/11/17 19:41 Dose: Not Given Sodium Chloride (Normal Saline) Confirm Administered Dose 100 mls @ as directed .ROUTE .STK-MED ONE Stop: 04/11/17 22:26 Last Admin: 04/11/17 22:29 Dose: Not Given Insulin Aspart (Novolog) 0 unit SUBCUT Q6H NORM PRN Reason: Protocol Last Admin: 04/12/17 06:55 Dose: Not Given Ketamine HCl (Ketalar) Confirm Administered Dose 500 mg .ROUTE .STK-MED ONE Stop: 04/10/17 17:22 Lidocaine (Xylocaine-Mpf 2%) Confirm Administered Dose 5 ml .ROUTE .STK-MED ONE Stop: 04/10/17 17:22 Lorazepam (Ativan) 1 mg IVPUSH ONETIME ONE Stop: 04/11/17 22:19 Last Admin: 04/11/17 22:26 Dose: 1 mg Midazolam HCl (Versed 1 Mg/Ml) Confirm Administered Dose 2 mg .ROUTE .STK-MED ONE Stop: 04/10/17 17:22 Ondansetron HCl (Zofran) 4 mg IVPUSH Q4H PRN PRN Reason: Nausea Ondansetron HCl (Zofran) Confirm Administered Dose 4 mg .ROUTE .STK-MED ONE Stop: 04/10/17 17:22 Phenylephrine HCl (Phenylephrine In Ns 100 Mcg/Ml) Confirm Administered Dose 1 mg .ROUTE .STK-MED ONE Stop: 04/10/17 18:15 Rocuronium [place] (Zemuron) Confirm Administered Dose 100 mg .ROUTE .STK-MED ONE Stop: 04/10/17 17:22 Succinylcholine Chloride (Succinylcholine In Ns Pf) Confirm Administered Dose 200 mg .ROUTE .STK-MED ONE Stop: 04/10/17 17:22 - Exam General: Alert, Oriented HEENT: Pupils Equal, Pupils Reactive Neck: Supple Lungs: Clear to Auscultation, Normal Respiratory Effort Cardiovascular: Regular Rate, Regular Rhythm GI/Abdominal Exam: Normal Bowel Sounds, Soft Extremities: Normal Inspection Skin: Warm, Dry, Intact Neurological: No New Focal Deficit Psy/Mental Status: Alert, Normal Affect, Normal Mood - Problem List Review Problem List Initiated/Reviewed/Updated: Yes - Plan Plan:: 56 yo male initially admitted for sepsis secondary to perforated appendix and diffuse peritonitis. Treated with Levophed and Phenylephrine which were discontinued once bp improved. Patient developed AF with RVR and is currently on Cardizem drip.
[2017-04-13] MEDS: Metoprolol Succinate 50 MG Tab.ER PO SCH (08:00)
[2017-04-13] MEDS: Famotidine 20 MG/2 ML SDV IVPUSH SCH ×2 (08:00→20:00)
--- NOTE | 2017-04-13 08:18 | PCM.SURGPN ---
- General Info Date of Service: 04/13/17 POD#: 3 Post-Op Diagnosis: acute appendicitis w/ peritonitis Functional Status: Reports: Pain Controlled, Tolerating Diet, Ambulating - Review of Systems General: Reports: Appetite. Denies: Fever, Weakness, Fatigue, Malaise, Night Sweats HEENT: Reports: No Symptoms Pulmonary: Denies: Shortness of Breath, Cough, Sputum, Hemoptysis, Wheezing Cardiovascular: Reports: No Symptoms Gastrointestinal: Reports: Flatus. Denies: Abdominal Pain, Decreased Appetite, Diarrhea, Difficulty Swallowing, Nausea, Vomiting Genitourinary: Reports: Other (Guerra) Musculoskeletal: Reports: No Symptoms Skin: Denies: Cyanosis, Jaundice, Mottled, Pallor, Diaphoresis Neurological: Reports: No Symptoms Psychiatric: Reports: No Symptoms - Patient Data Vitals - Most Recent: Last Vital Signs Temp 97.6 F 04/13/17 04:00 Pulse 100 04/13/17 08:00 Resp 20 04/13/17 07:00 BP 149/71 H 04/13/17 08:00 Pulse Ox 96 04/13/17 07:00 Weight - Most Recent: 255 lb 1.197 oz I&O - Last 24 Hours: Intake & Output 04/12/17 04/13/17 04/13/17 19:59 03:59 11:59 Intake Total 8407 219 9498 Output Total 1315 1185 Balance 424 100 778 Lab Results Last 24 Hrs: Laboratory Results - last 24 hr 04/12/17 04/12/17 04/13/17 Range/Units 11:39 16:41 05:50 WBC 14.56 H (4.0-11.0) K/uL RBC 5.01 (4.50-5.90) M/uL Hgb 13.5 (13.0-17.0) g/dL Hct 42.5 (38.0-50.0) % MCV 84.8 (80.0-98.0) fL MCH 26.9 L (27.0-32.0) pg MCHC 31.8 (31.0-37.0) g/dL RDW Std Deviation 45.6 (28.0-62.0) fl RDW Coeff of Aureliano 15 (11.0-15.0) % Plt Count 215 (150-400) K/uL MPV 9.40 (7.40-12.00) fL Neut % (Auto) 86.0 H (48.0-80.0) % Lymph % (Auto) 5.2 L (16.0-40.0) % Dunn % (Auto) 8.6 (0.0-15.0) % Eos % (Auto) 0.1 (0.0-7.0) % Baso % (Auto) 0.1 (0.0-1.5) % Neut # (Auto) 12.5 H (1.4-5.7) K/uL Lymph # (Auto) 0.8 (0.6-2.4) K/uL Dunn # (Auto) 1.3 H (0.0-0.8) K/uL Eos # (Auto) 0.0 (0.0-0.7) K/uL Baso # (Auto) 0.0 (0.0-0.1) K/uL Nucleated RBC % 0.0 /100WBC Nucleated RBCs # 0 K/uL Sodium (136-146) mmol/L Potassium (3.5-5.1) mmol/L Chloride (98-110) mmol/L Carbon Dioxide (21-31) mmol/L BUN (6.0-23.0) mg/dL Creatinine (0.6-1.5) mg/dL Est Cr Clr Drug Dosing mL/min Estimated GFR (MDRD) ml/min Glucose (60-110) mg/dL POC Glucose 126 H 116 H (60-110) mg/dL Calcium (8.8-10.8) mg/dL Magnesium (1.5-2.3) mEq/L Total Bilirubin (0.1-1.5) mg/dL AST (5-40) IU/L ALT (8-54) IU/L Alkaline Phosphatase (40-150) Total Protein (6.0-8.0) g/dL Albumin (3.5-5.0) g/dL Globulin (2.0-3.5) g/dL Albumin/Globulin Ratio (1.3-2.8) 04/13/17 Range/Units 05:50 WBC (4.0-11.0) K/uL RBC (4.50-5.90) M/uL Hgb (13.0-17.0) g/dL Hct (38.0-50.0) % MCV (80.0-98.0) fL MCH (27.0-32.0) pg MCHC (31.0-37.0) g/dL RDW Std Deviation (28.0-62.0) fl RDW Coeff of Aureliano (11.0-15.0) % Plt Count (150-400) K/uL MPV (7.40-12.00) fL Neut % (Auto) (48.0-80.0) % Lymph % (Auto) (16.0-40.0) % Dunn % (Auto) (0.0-15.0) % Eos % (Auto) (0.0-7.0) % Baso % (Auto) (0.0-1.5) % Neut # (Auto) (1.4-5.7) K/uL Lymph # (Auto) (0.6-2.4) K/uL Dunn # (Auto) (0.0-0.8) K/uL Eos # (Auto) (0.0-0.7) K/uL Baso # (Auto) (0.0-0.1) K/uL Nucleated RBC % /100WBC Nucleated RBCs # K/uL Sodium 136 (136-146) mmol/L Potassium 4.3 (3.5-5.1) mmol/L Chloride 105 (98-110) mmol/L Carbon Dioxide 21 (21-31) mmol/L BUN 17 (6.0-23.0) mg/dL Creatinine 1.0 (0.6-1.5) mg/dL Est Cr Clr Drug Dosing 89.46 mL/min Estimated GFR (MDRD) > 60.0 ml/min Glucose 117 H (60-110) mg/dL POC Glucose (60-110) mg/dL Calcium 9.3 (8.8-10.8) mg/dL Magnesium 1.4 L (1.5-2.3) mEq/L Total Bilirubin 0.4 (0.1-1.5) mg/dL AST 10 (5-40) IU/L ALT 13 (8-54) IU/L Alkaline Phosphatase 71 (40-150) Total Protein 6.6 (6.0-8.0) g/dL Albumin 3.2 L (3.5-5.0) g/dL Globulin 3.4 (2.0-3.5) g/dL Albumin/Globulin Ratio 0.9 L (1.3-2.8) Robinson Results Last 24 Hrs: Microbiology 04/10/17 14:30 Aerobic Blood Culture - Preliminary Blood - Venous - Lab Draw NO GROWTH AFTER 2 DAYS Anaerobic Blood Culture - Preliminary NO GROWTH AFTER 2 DAYS 04/10/17 14:20 Aerobic Blood Culture - Preliminary Blood - Venous NO GROWTH AFTER 2 DAYS Anaerobic Blood Culture - Preliminary NO GROWTH AFTER 2 DAYS Med Orders - Current: Current Medications Diltiazem HCl (Diltiazem) 0 mg IVPUSH Q1H PRN; Protocol PRN Reason: Arrhythmia Last Admin: 04/12/17 13:04 Dose: 5 mg Famotidine (Pepcid) 20 mg IVPUSH BID [facility] Last Admin: 04/13/17 08:00 Dose: 20 mg Heparin Sodium (Porcine) (Heparin Sodium) 5,000 units SUBCUT Q8H [facility] Last Admin: 04/13/17 06:28 Dose: 5,000 units Levofloxacin/Dextrose 750 mg/ (Premix) 150 mls @ 100 mls/hr IV Q24H [facility] Last Admin: 04/12/17 13:36 Dose: 100 mls/hr Metronidazole 500 mg/ Premix 100 mls @ 100 mls/hr IV Q8H [facility] Last Admin: 04/13/17 00:37 Dose: 100 mls/hr Diltiazem HCl 100 mg/ Sodium (Chloride) 100 mls @ 5 mls/hr IV TITRATE NORM; 5 MG /HR PRN Reason: Protocol Last Titration: 04/13/17 02:05 Dose: 5 mg/hr, 5 mls/hr Sodium Chloride (Normal Saline) 1,000 mls @ 75 mls/hr IV ASDIRECTED [facility] Last Admin: 04/13/17 05:56 Dose: 75 mls/hr Insulin Aspart (Novolog) 0 unit SUBCUT TIDAC [facility] PRN Reason: Protocol Last Admin: 04/13/17 06:34 Dose: Not Given Metoclopramide HCl (Reglan) 10 mg IVPUSH Q6H [facility] Last Admin: 04/13/17 07:59 Dose: 10 mg Metoprolol Succinate (Toprol Xl) 50 mg PO DAILY [facility] Last Admin: 04/13/17 08:00 Dose: 50 mg Morphine Sulfate (Morphine) 2 mg IVPUSH Q2H PRN PRN Reason: Pain Last Admin: 04/11/17 21:32 Dose: 2 mg Morphine Sulfate (Morphine) 0 mg IVPUSH Q1H PRN PRN Reason: Pain (severe 7-10) Ondansetron HCl (Zofran) 4 mg IVPUSH Q6H PRN PRN Reason: Nausea/Vomiting Discontinued Medications Bupivacaine HCl (Marcaine 0.5%) Confirm Administered Dose 30 ml .ROUTE .STK-MED ONE Stop: 04/10/17 17:34 Cefazolin Sodium (Ancef) Confirm Administered Dose 1 gm .ROUTE .STK-MED ONE Stop: 04/10/17 17:34 Digoxin (Lanoxin) 250 mcg IVPUSH ONETIME ONE Stop: 04/11/17 15:00 Last Admin: 04/11/17 19:41 Dose: Not Given Digoxin (Lanoxin) Confirm Administered Dose 500 mcg .ROUTE .STK-MED ONE Stop: 04/11/17 15:26 Last Admin: 04/11/17 19:41 Dose: Not Given Digoxin (Lanoxin) 250 mcg IVPUSH ONETIME ONE Stop: 04/11/17 18:39 Last Admin: 04/11/17 19:45 Dose: 250 mcg Diltiazem HCl (Diltiazem) 20 mg IVPUSH ONETIME ONE Stop: 04/11/17 20:50 Last Admin: 04/11/17 21:05 Dose: 20 mg Diltiazem HCl (Diltiazem) 20 mg IVPUSH ONETIME ONE Stop: 04/11/17 22:20 Last Admin: 04/11/17 22:36 Dose: 20 mg Diltiazem HCl (Diltiazem) Confirm Administered Dose 25 mg .ROUTE .STK-MED ONE Stop: 04/11/17 22:36 Last Admin: 04/11/17 22:42 Dose: Not Given Diltiazem HCl (Diltiazem) Confirm Administered Dose 25 mg .ROUTE .STK-MED ONE Stop: 04/12/17 09:02 Last Admin: 04/12/17 09:07 Dose: 5 mg Etomidate (Amidate) Confirm Administered Dose 40 mg IVPUSH .STK-MED ONE Stop: 04/10/17 17:22 Fentanyl (Sublimaze) Confirm Administered Dose 250 mcg .ROUTE .STK-MED ONE Stop: 04/10/17 17:22 Heparin Sodium (Porcine) (Heparin Sodium) Confirm Administered Dose 5,000 units .ROUTE .[facility]-MED ONE Stop: 04/11/17 12:51 Last Admin: 04/11/17 19:41 Dose: Not Given Metronidazole 500 mg/ Premix 100 mls @ 100 mls/hr IV Q8H NORM Last Admin: 04/10/17 17:47 Dose: Not Given Sodium Chloride (Normal Saline) 500 mls @ 1,000 mls/hr IV .BOLUS NORM Last Admin: 04/10/17 15:45 Dose: 1,000 mls/hr Sodium Chloride (Normal Saline) 1,000 mls @ 125 mls/hr IV ASDIRECTED NORM Last Admin: 04/10/17 22:48 Dose: 150 mls/hr Dopamine HCl/Dextrose (Dopamine In D5w 400 Mg/250 Ml) 400 mg in 250 mls @ 8.67 mls/hr IV TITRATE NORM; 2 MCG/KG/MIN PRN Reason: Protocol Norepinephrine Bitartrate (Norepinephr-0.9% Nacl 4 Mg/250) 4 mg in 250 mls @ 7.5 mls/hr IV TITRATE NORM; 2 MCG/MIN PRN Reason: Protocol Last Titration: 04/11/17 04:39 Dose: 3 mcg/min, 11.25 mls/hr Vasopressin 100 units/ Sodium (Chloride) 100 mls @ 0 mls/hr IV TITRATE NORM; Per Protocol PRN Reason: Protocol Last Titration: 04/11/17 20:30 Dose: 0 units/min, 0 mls/hr Sodium Chloride (Normal Saline) Confirm Administered Dose 20 mls @ as directed .ROUTE .[facility]-MED ONE Stop: 04/10/17 17:24 Sodium Chloride (Normal Saline) 500 mls @ 999 mls/hr IV .BOLUS NORM Last Admin: 04/10/17 18:11 Dose: Not Given Acetaminophen (Ofirmev) Confirm Administered Dose 100 mls @ as directed IV .STK- MED ONE Stop: 04/10/17 19:13 Lactated Ringer's (Ringers, Lactated) 1,000 mls @ 175 mls/hr IV ASDIRECTED NORM Stop: 04/11/17 00:08 Sodium Chloride (Normal Saline) 1,000 mls @ 150 mls/hr IV ASDIRECTED [facility] Last Infusion: 04/11/17 23:15 Dose: 75 mls/hr Magnesium Sulfate (Magnesium Sulfate 2 Gm In Water 50 Ml) Confirm Administered Dose 50 mls @ as directed .ROUTE .STK-MED ONE Stop: 04/11/17 12:51 Last Admin: 04/11/17 19:41 Dose: Not Given Sodium Chloride (Normal Saline) Confirm Administered Dose 100 mls @ as directed .ROUTE .STK-MED ONE Stop: 04/11/17 22:26 Last Admin: 04/11/17 22:29 Dose: Not Given Insulin Aspart (Novolog) 0 unit SUBCUT Q6H [facility] PRN Reason: Protocol Last Admin: 04/12/17 06:55 Dose: Not Given Ketamine HCl (Ketalar) Confirm Administered Dose 500 mg .ROUTE .STK-MED ONE Stop: 04/10/17 17:22 Lidocaine (Xylocaine-Mpf 2%) Confirm Administered Dose 5 ml .ROUTE .STK-MED ONE Stop: 04/10/17 17:22 Lorazepam (Ativan) 1 mg IVPUSH ONETIME ONE Stop: 04/11/17 22:19 Last Admin: 04/11/17 22:26 Dose: 1 mg Midazolam HCl (Versed 1 Mg/Ml) Confirm Administered Dose 2 mg .ROUTE .STK-MED ONE Stop: 04/10/17 17:22 Ondansetron HCl (Zofran) 4 mg IVPUSH Q4H PRN PRN Reason: Nausea Ondansetron HCl (Zofran) Confirm Administered Dose 4 mg .ROUTE .STK-MED ONE Stop: 04/10/17 17:22 Phenylephrine HCl (Phenylephrine In Ns 100 Mcg/Ml) Confirm Administered Dose 1 mg .ROUTE .STK-MED ONE Stop: 04/10/17 18:15 Rocuronium [place] (Zemuron) Confirm Administered Dose 100 mg .ROUTE .STK-MED ONE Stop: 04/10/17 17:22 Succinylcholine Chloride (Succinylcholine In Ns Pf) Confirm Administered Dose 200 mg .ROUTE .STK-MED ONE Stop: 04/10/17 17:22 - Exam Wound/Incisions: Healing Well, Dressing Dry and Intact, Drainage (Luis A-Kiran drainage has increased. Fluid is serous in nature.), Erythema Improving ( Around the suprapubic incision) Quality Assessment: Supplemental Oxygen, Urine Catheter, DVT Prophylaxis. No: Skin Breakdown General: Alert, Oriented, Cooperative, No Acute Distress HEENT: Pupils Equal, Pupils Reactive Neck: Supple Lungs: Clear to Auscultation, Normal Respiratory Effort. No: Crackles, Wheezing Cardiovascular: Irregular Rhythm (Appears to be atrial fibrillation), Tachycardia GI/Abdominal Exam: Normal Bowel Sounds, Soft, Non-Tender, No Distention. No: Guarding, Rigid, Rebound, Hernia, Mass Extremities: Normal Inspection Skin: Warm, Dry, Intact Neurological: No New Focal Deficit Psy/Mental Status: Alert, Normal Affect, Normal Mood - Problem List & Annotations (1) Acute appendicitis with rupture SNOMED Code(s): 62152213 Code(s): K35.2 - ACUTE APPENDICITIS WITH GENERALIZED PERITONITIS Status: Acute Priority: High Current Visit: Yes (2) Acute kidney injury (nontraumatic) SNOMED Code(s): 13384474 Code(s): N17.9 - ACUTE KIDNEY FAILURE, UNSPECIFIED Status: Acute Priority : High Current Visit: Yes (3) Diabetes 1.5, managed as type 2 SNOMED Code(s): 357446255 Code(s): E10.9 - TYPE 1 DIABETES MELLITUS WITHOUT COMPLICATIONS Status: Acute Priority: High Current Visit: Yes (4) Coronary artery disease SNOMED Code(s): 76065481 Code(s): I25.10 - ATHSCL HEART DISEASE OF [place] CORONARY ARTERY W/O ANG PCTRS Status: Acute Priority: Medium Current Visit: Yes Qualifiers: Associated angina: without angina (5) Myocardial infarction, 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 SNOMED Code(s): 2911381 Code(s): I25.2 - OLD MYOCARDIAL INFARCTION Status: Acute Priority: Medium Current Visit: Yes - Problem List Review Problem List Initiated/Reviewed/Updated: Yes - My Orders Last 24 Hours: Active Orders 24 hr Category Date Time Status Clear Liquid Diet [DIET] Diet 04/12/17 Lunch Active Full Liquid Diet [DIET] Diet 04/13/17 Lunch Ordered CBC WITH AUTO DIFF [HEME] DAILY Lab 04/14/17 05:10 Ordered CBC WITH AUTO DIFF [HEME] DAILY Lab 04/15/17 05:10 Ordered CBC WITH AUTO DIFF [HEME] DAILY Lab 04/16/17 05:10 Ordered COMPREHENSIVE METABOLIC PN,CMP [CHEM] DAILY Lab 04/14/17 05:10 Ordered COMPREHENSIVE METABOLIC PN,CMP [CHEM] DAILY Lab 04/15/17 05:10 Ordered COMPREHENSIVE METABOLIC PN,CMP [CHEM] DAILY Lab 04/16/17 05:10 Ordered MAGNESIUM [CHEM] DAILY Lab 04/14/17 05:10 Ordered MAGNESIUM [CHEM] DAILY Lab 04/15/17 05:10 Ordered MAGNESIUM [CHEM] DAILY Lab 04/16/17 05:10 Ordered Diltiazem Med 04/12/17 12:35 Active See Protocol IVPUSH Q1H PRN Famotidine [Pepcid] Med 04/12/17 09:00 Active 20 mg IVPUSH BID Insulin Aspart [NovoLOG] Med 04/12/17 11:30 Active See Protocol SUBCUT TIDAC Metoprolol Succinate [Toprol XL] Med 04/12/17 11:30 Active 50 mg PO DAILY Medication Orders Diltiazem HCl (Diltiazem) 0 mg IVPUSH Q1H PRN; Protocol PRN Reason: Arrhythmia Last Admin: 04/12/17 13:04 Dose: 5 mg Famotidine (Pepcid) 20 mg IVPUSH BID [facility] Last Admin: 04/13/17 08:00 Dose: 20 mg Admin: 04/12/17 20:01 Dose: 20 mg Admin: 04/12/17 08:32 Dose: 20 mg Heparin Sodium (Porcine) (Heparin Sodium) 5,000 units SUBCUT Q8H [facility] Last Admin: 04/13/17 06:28 Dose: 5,000 units Admin: 04/12/17 22:17 Dose: 5,000 units Admin: 04/12/17 13:36 Dose: 5,000 units Admin: 04/12/17 06:56 Dose: 5,000 units Admin: 04/11/17 22:51 Dose: 5,000 units Levofloxacin/Dextrose 750 mg/ (Premix) 150 mls @ 100 mls/hr IV Q24H [facility] Last Admin: 04/12/17 13:36 Dose: 100 mls/hr Admin: 04/11/17 14:50 Dose: Infusion: 04/10/17 17:10 Dose: 100 mls/hr Admin: 04/10/17 15:40 Dose: 100 mls/hr Metronidazole 500 mg/ Premix 100 mls @ 100 mls/hr IV Q8H [facility] Last Admin: 04/13/17 00:37 Dose: 100 mls/hr Infusion: 04/12/17 19:09 Dose: 100 mls/hr Admin: 04/12/17 18:09 Dose: 100 mls/hr Infusion: 04/12/17 09:32 Dose: 100 mls/hr Admin: 04/12/17 08:32 Dose: 100 mls/hr Infusion: 04/12/17 01:34 Dose: 100 mls/hr Admin: 04/12/17 00:34 Dose: 100 mls/hr Infusion: 04/11/17 18:55 Dose: 100 mls/hr Admin: 04/11/17 17:55 Dose: 100 mls/hr Admin: 04/11/17 14:49 Dose: Infusion: 04/11/17 01:58 Dose: 100 mls/hr Admin: 04/11/17 00:58 Dose: 100 mls/hr Infusion: 04/10/17 18:09 Dose: 100 mls/hr Admin: 04/10/17 17:09 Dose: 100 mls/hr Diltiazem HCl 100 mg/ Sodium (Chloride) 100 mls @ 5 mls/hr IV TITRATE NORM; 5 MG /HR PRN Reason: Protocol Last Titration: 04/13/17 02:05 Dose: 5 mg/hr, 5 mls/hr Titration: 04/13/17 01:06 Dose: 10 mg/hr, 10 mls/hr Admin: 04/12/17 19:42 Dose: 15 mg/hr, 15 mls/hr Titration: 04/12/17 19:41 Dose: 15 mg/hr, 15 mls/hr Admin: 04/12/17 13:00 Dose: 15 mg/hr, 15 mls/hr Titration: 04/12/17 13:00 Dose: 15 mg/hr, 15 mls/hr Titration: 04/12/17 12:00 Dose: 15 mg/hr, 15 mls/hr Titration: 04/12/17 11:05 Dose: 10 mg/hr, 10 mls/hr Titration: 04/12/17 08:58 Dose: 15 mg/hr, 15 mls/hr Titration: 04/12/17 08:31 Dose: 10 mg/hr, 10 mls/hr Titration: 04/12/17 05:15 Dose: 5 mg/hr, 5 mls/hr Admin: 04/12/17 03:48 Dose: 10 mg/hr, 10 mls/hr Titration: 04/12/17 03:48 Dose: 15 mg/hr, 15 mls/hr Titration: 04/11/17 22:35 Dose: 15 mg/hr, 15 mls/hr Titration: 04/11/17 22:15 Dose: 10 mg/hr, 10 mls/hr Admin: 04/11/17 21:41 Dose: 5 mg/hr, 5 mls/hr Sodium Chloride (Normal Saline) 1,000 mls @ 75 mls/hr IV ASDIRECTED [facility] Last Admin: 04/13/17 05:56 Dose: 75 mls/hr Infusion: 04/13/17 02:23 Dose: 75 mls/hr Admin: 04/12/17 13:03 Dose: 75 mls/hr Insulin Aspart (Novolog) 0 unit SUBCUT TIDAC [facility] PRN Reason: Protocol Last Admin: 04/13/17 06:34 Dose: Not Given Admin: 04/12/17 17:29 Dose: Not Given Admin: 04/12/17 12:57 Dose: Not Given Metoclopramide HCl (Reglan) 10 mg IVPUSH Q6H [facility] Last Admin: 04/13/17 07:59 Dose: 10 mg Admin: 04/13/17 03:00 Dose: 10 mg Admin: 04/12/17 19:46 Dose: 10 mg Admin: 04/12/17 13:36 Dose: 10 mg Admin: 04/12/17 08:32 Dose: 10 mg Admin: 04/12/17 03:03 Dose: 10 mg Admin: 04/11/17 21:05 Dose: 10 mg Admin: 04/11/17 14:49 Dose: Admin: 04/11/17 14:49 Dose: Admin: 04/11/17 02:34 Dose: 10 mg Admin: 04/10/17 22:33 Dose: 10 mg Metoprolol Succinate (Toprol Xl) 50 mg PO DAILY [facility] Last Admin: 04/13/17 08:00 Dose: 50 mg Admin: 04/12/17 11:49 Dose: 50 mg Morphine Sulfate (Morphine) 2 mg IVPUSH Q2H PRN PRN Reason: Pain Last Admin: 04/11/17 21:32 Dose: 2 mg Admin: 04/11/17 01:22 Dose: 2 mg Admin: 04/10/17 23:06 Dose: 2 mg Morphine Sulfate (Morphine) 0 mg IVPUSH Q1H PRN PRN Reason: Pain (severe 7-10) Ondansetron HCl (Zofran) 4 mg IVPUSH Q6H PRN PRN Reason: Nausea/Vomiting - Assessment Assessment (Free Text/Narrative):: Patient continues to improve hemodynamically. Luis A-Kiran drainage has increased, but is serous in nature. Patient relates he has passing gas but no bowel movement yet. I do note his white count went up slightly. He remains afebrile. His incisions are clean and dry and there is no increasing erythema around the suprapubic incision. - Plan Plan (Free Text/Narrative):: Leave the Luis A-Kiran drain in today. Full liquid diet. Will leave decision to remove Guerra up to the hospitalist service. We'll leave decision as to transfer from the intensive care unit to the hospitalist service.
--- NOTE | 2017-04-13 08:54 | PCM.PN ---
- General Info Date of Service: 04/13/17 Admission Dx/Problem (Free Text): Admission Diagnosis/Problem Admission Diagnosis/Problem Abdominal pain Subjective Update: Patient doing well today. No fever, abdominal pain, nausea or vomiting. His Cardizem drip was discontinued early this morning. Since then his HR has ranged from 90-120. No chest pain, palpitations or edema. Functional Status: Reports: Pain Controlled - Review of Systems General: Reports: No Symptoms HEENT: Reports: No Symptoms Pulmonary: Reports: No Symptoms Cardiovascular: Reports: No Symptoms Gastrointestinal: Reports: No Symptoms Genitourinary: Reports: No Symptoms Musculoskeletal: Reports: No Symptoms Skin: Reports: No Symptoms Neurological: Reports: No Symptoms Psychiatric: Reports: No Symptoms - Patient Data Vitals - Most Recent: Last Vital Signs Temp 36.4 C 04/13/17 04:00 Pulse 100 04/13/17 08:00 Resp 20 04/13/17 07:00 BP 149/71 H 04/13/17 08:00 Pulse Ox 96 04/13/17 07:00 Weight - Most Recent: 115.7 kg I&O - Last 24 Hours: Intake & Output 04/12/17 04/13/17 04/13/17 22:59 06:59 14:59 Intake Total 1739 2063 Output Total 1315 1185 Balance 424 878 Lab Results Last 24 Hours: Laboratory Results - last 24 hr 04/12/17 04/12/17 04/13/17 Range/Units 11:39 16:41 05:50 WBC 14.56 H (4.0-11.0) K/uL RBC 5.01 (4.50-5.90) M/uL Hgb 13.5 (13.0-17.0) g/dL Hct 42.5 (38.0-50.0) % MCV 84.8 (80.0-98.0) fL MCH 26.9 L (27.0-32.0) pg MCHC 31.8 (31.0-37.0) g/dL RDW Std Deviation 45.6 (28.0-62.0) fl RDW Coeff of Aureliano 15 (11.0-15.0) % Plt Count 215 (150-400) K/uL MPV 9.40 (7.40-12.00) fL Neut % (Auto) 86.0 H (48.0-80.0) % Lymph % (Auto) 5.2 L (16.0-40.0) % [place] % (Auto) 8.6 (0.0-15.0) % Eos % (Auto) 0.1 (0.0-7.0) % Baso % (Auto) 0.1 (0.0-1.5) % Neut # (Auto) 12.5 H (1.4-5.7) K/uL Lymph # (Auto) 0.8 (0.6-2.4) K/uL [place] # (Auto) 1.3 H (0.0-0.8) K/uL Eos # (Auto) 0.0 (0.0-0.7) K/uL Baso # (Auto) 0.0 (0.0-0.1) K/uL Nucleated RBC % 0.0 /100WBC Nucleated RBCs # 0 K/uL Sodium (136-146) mmol/L Potassium (3.5-5.1) mmol/L Chloride (98-110) mmol/L Carbon Dioxide (21-31) mmol/L BUN (6.0-23.0) mg/dL Creatinine (0.6-1.5) mg/dL Est Cr Clr Drug Dosing mL/min Estimated GFR (MDRD) ml/min Glucose (60-110) mg/dL POC Glucose 126 H 116 H (60-110) mg/dL Calcium (8.8-10.8) mg/dL Magnesium (1.5-2.3) mEq/L Total Bilirubin (0.1-1.5) mg/dL AST (5-40) IU/L ALT (8-54) IU/L Alkaline Phosphatase (40-150) Total Protein (6.0-8.0) g/dL Albumin (3.5-5.0) g/dL Globulin (2.0-3.5) g/dL Albumin/Globulin Ratio (1.3-2.8) 04/13/17 Range/Units 05:50 WBC (4.0-11.0) K/uL RBC (4.50-5.90) M/uL Hgb (13.0-17.0) g/dL Hct (38.0-50.0) % MCV (80.0-98.0) fL MCH (27.0-32.0) pg MCHC (31.0-37.0) g/dL RDW Std Deviation (28.0-62.0) fl RDW Coeff of Aureliano (11.0-15.0) % Plt Count (150-400) K/uL MPV (7.40-12.00) fL Neut % (Auto) (48.0-80.0) % Lymph % (Auto) (16.0-40.0) % [place] % (Auto) (0.0-15.0) % Eos % (Auto) (0.0-7.0) % Baso % (Auto) (0.0-1.5) % Neut # (Auto) (1.4-5.7) K/uL Lymph # (Auto) (0.6-2.4) K/uL [place] # (Auto) (0.0-0.8) K/uL Eos # (Auto) (0.0-0.7) K/uL Baso # (Auto) (0.0-0.1) K/uL Nucleated RBC % /100WBC Nucleated RBCs # K/uL Sodium 136 (136-146) mmol/L Potassium 4.3 (3.5-5.1) mmol/L Chloride 105 (98-110) mmol/L Carbon Dioxide 21 (21-31) mmol/L BUN 17 (6.0-23.0) mg/dL Creatinine 1.0 (0.6-1.5) mg/dL Est Cr Clr Drug Dosing 89.46 mL/min Estimated GFR (MDRD) > 60.0 ml/min Glucose 117 H (60-110) mg/dL POC Glucose (60-110) mg/dL Calcium 9.3 (8.8-10.8) mg/dL Magnesium 1.4 L (1.5-2.3) mEq/L Total Bilirubin 0.4 (0.1-1.5) mg/dL AST 10 (5-40) IU/L ALT 13 (8-54) IU/L Alkaline Phosphatase 71 (40-150) Total Protein 6.6 (6.0-8.0) g/dL Albumin 3.2 L (3.5-5.0) g/dL Globulin 3.4 (2.0-3.5) g/dL Albumin/Globulin Ratio 0.9 L (1.3-2.8) Robinson Results Last 24 Hours: Microbiology 04/10/17 14:30 Aerobic Blood Culture - Preliminary Blood - Venous - Lab Draw NO GROWTH AFTER 2 DAYS Anaerobic Blood Culture - Preliminary NO GROWTH AFTER 2 DAYS 04/10/17 14:20 Aerobic Blood Culture - Preliminary Blood - Venous NO GROWTH AFTER 2 DAYS Anaerobic Blood Culture - Preliminary NO GROWTH AFTER 2 DAYS Med Orders - Current: Current Medications Diltiazem HCl (Diltiazem) 0 mg IVPUSH Q1H PRN; Protocol PRN Reason: Arrhythmia Last Admin: 04/12/17 13:04 Dose: 5 mg Famotidine (Pepcid) 20 mg IVPUSH BID [facility] Last Admin: 04/13/17 08:00 Dose: 20 mg Heparin Sodium (Porcine) (Heparin Sodium) 5,000 units SUBCUT Q8H [facility] Last Admin: 04/13/17 06:28 Dose: 5,000 units Levofloxacin/Dextrose 750 mg/ (Premix) 150 mls @ 100 mls/hr IV Q24H [facility] Last Admin: 04/12/17 13:36 Dose: 100 mls/hr Metronidazole 500 mg/ Premix 100 mls @ 100 mls/hr IV Q8H [facility] Last Admin: 04/13/17 00:37 Dose: 100 mls/hr Diltiazem HCl 100 mg/ Sodium (Chloride) 100 mls @ 5 mls/hr IV TITRATE NORM; 5 MG /HR PRN Reason: Protocol Last Titration: 04/13/17 02:05 Dose: 5 mg/hr, 5 mls/hr Sodium Chloride (Normal Saline) 1,000 mls @ 75 mls/hr IV ASDIRECTED [facility] Last Admin: 04/13/17 05:56 Dose: 75 mls/hr Insulin Aspart (Novolog) 0 unit SUBCUT TIDAC [facility] PRN Reason: Protocol Last Admin: 04/13/17 06:34 Dose: Not Given Metoclopramide HCl (Reglan) 10 mg IVPUSH Q6H [facility] Last Admin: 04/13/17 07:59 Dose: 10 mg Metoprolol Succinate (Toprol Xl) 50 mg PO DAILY [facility] Last Admin: 04/13/17 08:00 Dose: 50 mg Morphine Sulfate (Morphine) 2 mg IVPUSH Q2H PRN PRN Reason: Pain Last Admin: 04/11/17 21:32 Dose: 2 mg Morphine Sulfate (Morphine) 0 mg IVPUSH Q1H PRN PRN Reason: Pain (severe 7-10) Ondansetron HCl (Zofran) 4 mg IVPUSH Q6H PRN PRN Reason: Nausea/Vomiting Discontinued Medications Bupivacaine HCl (Marcaine 0.5%) Confirm Administered Dose 30 ml .ROUTE .STK-MED ONE Stop: 04/10/17 17:34 Cefazolin Sodium (Ancef) Confirm Administered Dose 1 gm .ROUTE .STK-MED ONE Stop: 04/10/17 17:34 Digoxin (Lanoxin) 250 mcg IVPUSH ONETIME ONE Stop: 04/11/17 15:00 Last Admin: 04/11/17 19:41 Dose: Not Given Digoxin (Lanoxin) Confirm Administered Dose 500 mcg .ROUTE .STK-MED ONE Stop: 04/11/17 15:26 Last Admin: 04/11/17 19:41 Dose: Not Given Digoxin (Lanoxin) 250 mcg IVPUSH ONETIME ONE Stop: 04/11/17 18:39 Last Admin: 04/11/17 19:45 Dose: 250 mcg Diltiazem HCl (Diltiazem) 20 mg IVPUSH ONETIME ONE Stop: 04/11/17 20:50 Last Admin: 04/11/17 21:05 Dose: 20 mg Diltiazem HCl (Diltiazem) 20 mg IVPUSH ONETIME ONE Stop: 04/11/17 22:20 Last Admin: 04/11/17 22:36 Dose: 20 mg Diltiazem HCl (Diltiazem) Confirm Administered Dose 25 mg .ROUTE .STK-MED ONE Stop: 04/11/17 22:36 Last Admin: 04/11/17 22:42 Dose: Not Given Diltiazem HCl (Diltiazem) Confirm Administered Dose 25 mg .ROUTE .STK-MED ONE Stop: 04/12/17 09:02 Last Admin: 04/12/17 09:07 Dose: 5 mg Etomidate (Amidate) Confirm Administered Dose 40 mg IVPUSH .STK-MED ONE Stop: 04/10/17 17:22 Fentanyl (Sublimaze) Confirm Administered Dose 250 mcg .ROUTE .STK-MED ONE Stop: 12/18/17 17:22 Heparin Sodium (Porcine) (Heparin Sodium) Confirm Administered Dose 5,000 units .ROUTE .STK-MED ONE Stop: 04/11/17 12:51 Last Admin: 04/11/17 19:41 Dose: Not Given Metronidazole 500 mg/ Premix 100 mls @ 100 mls/hr IV Q8H NORM Last Admin: 04/10/17 17:47 Dose: Not Given Sodium Chloride (Normal Saline) 500 mls @ 1,000 mls/hr IV .BOLUS NORM Last Admin: 04/10/17 15:45 Dose: 1,000 mls/hr Sodium Chloride (Normal Saline) 1,000 mls @ 125 mls/hr IV ASDIRECTED NORM Last Admin: 04/10/17 22:48 Dose: 150 mls/hr Dopamine HCl/Dextrose (Dopamine In D5w 400 Mg/250 Ml) 400 mg in 250 mls @ 8.67 mls/hr IV TITRATE NORM; 2 MCG/KG/MIN PRN Reason: Protocol Norepinephrine Bitartrate (Norepinephr-0.9% Nacl 4 Mg/250) 4 mg in 250 mls @ 7.5 mls/hr IV TITRATE NORM; 2 MCG/MIN PRN Reason: Protocol Last Titration: 04/11/17 04:39 Dose: 3 mcg/min, 11.25 mls/hr Vasopressin 100 units/ Sodium (Chloride) 100 mls @ 0 mls/hr IV TITRATE NORM; Per Protocol PRN Reason: Protocol Last Titration: 04/11/17 20:30 Dose: 0 units/min, 0 mls/hr Sodium Chloride (Normal Saline) Confirm Administered Dose 20 mls @ as directed .ROUTE .STK-MED ONE Stop: 04/10/17 17:24 Sodium Chloride (Normal Saline) 500 mls @ 999 mls/hr IV .BOLUS NORM Last Admin: 04/10/17 18:11 Dose: Not Given Acetaminophen (Ofirmev) Confirm Administered Dose 100 mls @ as directed IV .STK- MED ONE Stop: 04/10/17 19:13 Lactated Ringer's (Ringers, Lactated) 1,000 mls @ 175 mls/hr IV ASDIRECTED NORM Stop: 04/11/17 00:08 Sodium Chloride (Normal Saline) 1,000 mls @ 150 mls/hr IV ASDIRECTED NORM Last Infusion: 04/11/17 23:15 Dose: 75 mls/hr Magnesium Sulfate (Magnesium Sulfate 2 Gm In Water 50 Ml) Confirm Administered Dose 50 mls @ as directed .ROUTE .STK-MED ONE Stop: 04/11/17 12:51 Last Admin: 04/11/17 19:41 Dose: Not Given Sodium Chloride (Normal Saline) Confirm Administered Dose 100 mls @ as directed .ROUTE .STK-MED ONE Stop: 04/11/17 22:26 Last Admin: 04/11/17 22:29 Dose: Not Given Insulin Aspart (Novolog) 0 unit SUBCUT Q6H NORM PRN Reason: Protocol Last Admin: 04/12/17 06:55 Dose: Not Given Ketamine HCl (Ketalar) Confirm Administered Dose 500 mg .ROUTE .STK-MED ONE Stop: 04/10/17 17:22 Lidocaine (Xylocaine-Mpf 2%) Confirm Administered Dose 5 ml .ROUTE .STK-MED ONE Stop: 04/10/17 17:22 Lorazepam (Ativan) 1 mg IVPUSH ONETIME ONE Stop: 04/11/17 22:19 Last Admin: 04/11/17 22:26 Dose: 1 mg Midazolam HCl (Versed 1 Mg/Ml) Confirm Administered Dose 2 mg .ROUTE .STK-MED ONE Stop: 04/10/17 17:22 Ondansetron HCl (Zofran) 4 mg IVPUSH Q4H PRN PRN Reason: Nausea Ondansetron HCl (Zofran) Confirm Administered Dose 4 mg .ROUTE .STK-MED ONE Stop: 04/10/17 17:22 Phenylephrine HCl (Phenylephrine In Ns 100 Mcg/Ml) Confirm Administered Dose 1 mg .ROUTE .STK-MED ONE Stop: 04/10/17 18:15 Rocuronium [place] (Zemuron) Confirm Administered Dose 100 mg .ROUTE .STK-MED ONE Stop: 04/10/17 17:22 Succinylcholine Chloride (Succinylcholine In Ns Pf) Confirm Administered Dose 200 mg .ROUTE .STK-MED ONE Stop: 04/10/17 17:22 - Exam General: Alert, Oriented, Cooperative, No Acute Distress HEENT: Pupils Equal, Pupils Reactive Neck: Supple Lungs: Clear to Auscultation, Normal Respiratory Effort Cardiovascular: Irregular Rhythm, Tachycardia GI/Abdominal Exam: Normal Bowel Sounds, Soft, No Distention Extremities: Normal Inspection, No Pedal Edema Peripheral Pulses: 2+: Carotid (L), Carotid (R) Skin: Warm, Dry, Intact Neurological: No New Focal Deficit Psy/Mental Status: Alert, Normal Affect, Normal Mood - Problem List Review Problem List Initiated/Reviewed/Updated: Yes - Plan Plan:: 56 yo male initially admitted for sepsis secondary to perforated appendix and diffuse peritonitis. Treated with Levophed and Phenylephrine which were discontinued once bp improved. Patient developed AF with RVR and is currently on Cardizem drip. Surgery consulted and is on board. 1. AF with RVR -Cardizem drop DC 4 hours ago -hr 90-115 -on Toprol 50 mg QD Plan: -order echo for new onset AF -Increase Toprol to 100 mg QD -Target Mg over 2 and K over 4 2. Hypomagnasemia -current Mg 1.4 plan: -Mg 4 mg IV x2 doses -repeat Mg in AM 3. Acute Peritonitis, secondary to Perforated Appendix -on Levaquin and Metronidazole -patient doing well, vitals stable, no fever/nausea/vomiting, pain controlled plan: -continue Levaquin & Metronidazole -Continue zofran prn for nausea -continue morphine prn for pain -surgery on board, continue management as per rec's 4. Leukocytosis -likely secondary to #3 plan: -continue to monitor WBC count 5. Septic Shock, secondary to #3 -resolved, off pressors, vitals stable, no fever plan: -continue to monitor 6. DM T2 -continue BG monitoring and ISS
[2017-04-13] MEDS ORDERED: Metoprolol Succinate 50 MG Tab.ER PO ONE (09:11)
[2017-04-13] MEDS ORDERED: Magnesium Sulfate/Water 4 GM in Premix Bag 1 BAG IV ONE ×2 (09:27→11:30)
[2017-04-13] MEDS: Levofloxacin/Dextrose 5%-Water 750 MG in Premix Bag 1 BAG IV SCH (13:47)
[2017-04-13] MEDS ORDERED: Diltiazem IR 30 MG Tab PO SCH (18:00)
[2017-04-13] MEDS ORDERED: Diltiazem IR 30 MG Tab PO ONE (18:49)
[2017-04-13] MEDS: Diltiazem IR 30 MG Tab PO SCH (23:06)
[2017-04-14] MEDS: metroNIDAZOLE/Normal Saline 500 MG in Premix Bag 1 BAG IV SCH ×3 (02:03→17:19)
[2017-04-14] MEDS: Metoclopramide 10 MG/2 ML SDV IVPUSH SCH ×4 (02:04→20:03)
[2017-04-14 06:23] LABS: CHLORIDE,CL 107 mmol/L (98-110); SODIUM,NA 138 mmol/L (136-146)
[2017-04-14] MEDS: Insulin Aspart 100 Units/ML 3 ML Pen SUBCUT SCH ×3 (06:39→17:29)
[2017-04-14] MEDS: Heparin Sodium 5,000 Units/ML Vial SUBCUT SCH ×2 (06:44→13:44)
[2017-04-14] MEDS: Diltiazem IR 30 MG Tab PO SCH ×3 (07:29→17:19)
[2017-04-14] MEDS: Famotidine 20 MG/2 ML SDV IVPUSH SCH ×2 (08:00→20:14)
[2017-04-14] MEDS: Metoprolol Succinate 100 MG Tab.ER PO SCH (08:01)
[2017-04-14] MEDS ORDERED: Potassium Chloride 20 MEQ Tab.ER PO ONE (08:04)
[2017-04-14] MEDS ORDERED: Magnesium Sulfate/Water 4 GM in Premix Bag 1 BAG IV ONE (08:05)
--- NOTE | 2017-04-14 08:30 | PCM.PN ---
- General Info Date of Service: 04/14/17 Admission Dx/Problem (Free Text): Admission Diagnosis/Problem Admission Diagnosis/Problem Abdominal pain Subjective Update: Patients hr continues to fluctuate bw NSR, Afib and atrial flutter. HR currently 100-130. He had 3 bm's yesterday and is passing gas. Complains of moderate pain with passing gas. Denies any chest pain, palpitations, sob, fever , chils, nausea, vomiting, appetite loss. - Review of Systems General: Reports: No Symptoms HEENT: Reports: No Symptoms Pulmonary: Reports: No Symptoms Cardiovascular: Reports: No Symptoms Gastrointestinal: Reports: Other (pain with passing gas ) Genitourinary: Reports: No Symptoms Musculoskeletal: Reports: No Symptoms Skin: Reports: No Symptoms Neurological: Reports: No Symptoms Psychiatric: Reports: No Symptoms - Patient Data Vitals - Most Recent: Last Vital Signs Temp 36.4 C 04/14/17 08:00 Pulse 122 H 04/14/17 08:01 Resp 13 04/14/17 08:00 BP 165/72 H 04/14/17 08:01 Pulse Ox 92 L 04/14/17 08:00 Weight - Most Recent: 118 kg I&O - Last 24 Hours: Intake & Output 04/13/17 04/14/17 04/14/17 22:59 06:59 14:59 Intake Total 1598 2500 Output Total 730 1710 Balance 868 790 Lab Results Last 24 Hours: Laboratory Results - last 24 hr 04/13/17 04/13/17 04/13/17 Range/Units 06:31 10:53 16:27 WBC (4.0-11.0) K/uL RBC (4.50-5.90) M/uL Hgb (13.0-17.0) g/dL Hct (38.0-50.0) % MCV (80.0-98.0) fL MCH (27.0-32.0) pg MCHC (31.0-37.0) g/dL RDW Std Deviation (28.0-62.0) fl RDW Coeff of Aureliano (11.0-15.0) % Plt Count (150-400) K/uL MPV (7.40-12.00) fL Add Manual Diff Neutrophils % (Manual) (48.0-80.0) % Band Neutrophils % % Lymphocytes % (Manual) (16.0-40.0) % Monocytes % (Manual) (0.0-15.0) % Eosinophils % (Manual) (0.0-7.0) % Nucleated RBC % /100WBC Absolute Seg Neuts (1.4-5.7) Band Neutrophils # Lymphocytes # (Manual) (0.6-2.4) Monocytes # (Manual) (0.0-0.8) Eosinophils # (Manual) (0.0-0.7) Nucleated RBCs # K/uL Sodium (136-146) mmol/L Potassium (3.5-5.1) mmol/L Chloride (98-110) mmol/L Carbon Dioxide (21-31) mmol/L BUN (6.0-23.0) mg/dL Creatinine (0.6-1.5) mg/dL Est Cr Clr Drug Dosing mL/min Estimated GFR (MDRD) ml/min Glucose (60-110) mg/dL POC Glucose 102 156 H 111 H (60-110) mg/dL Calcium (8.8-10.8) mg/dL Magnesium (1.5-2.3) mEq/L Total Bilirubin (0.1-1.5) mg/dL AST (5-40) IU/L ALT (8-54) IU/L Alkaline Phosphatase (40-150) Total Protein (6.0-8.0) g/dL Albumin (3.5-5.0) g/dL Globulin (2.0-3.5) g/dL Albumin/Globulin Ratio (1.3-2.8) 04/14/17 04/14/17 Range/Units 05:36 05:36 WBC 11.09 H (4.0-11.0) K/uL RBC 4.84 (4.50-5.90) M/uL Hgb 12.8 L (13.0-17.0) g/dL Hct 39.9 (38.0-50.0) % MCV 82.4 (80.0-98.0) fL MCH 26.4 L (27.0-32.0) pg MCHC 32.1 (31.0-37.0) g/dL RDW Std Deviation 44.2 (28.0-62.0) fl RDW Coeff of Aureliano 15 (11.0-15.0) % Plt Count 215 (150-400) K/uL MPV 9.30 (7.40-12.00) fL Add Manual Diff YES Neutrophils % (Manual) 78 (48.0-80.0) % Band Neutrophils % 7 % Lymphocytes % (Manual) 8 L (16.0-40.0) % Monocytes % (Manual) 6 (0.0-15.0) % Eosinophils % (Manual) 1 (0.0-7.0) % Nucleated RBC % 0.0 /100WBC Absolute Seg Neuts 8.7 H (1.4-5.7) Band Neutrophils # 0.8 Lymphocytes # (Manual) 0.9 (0.6-2.4) Monocytes # (Manual) 0.7 (0.0-0.8) Eosinophils # (Manual) 0.1 (0.0-0.7) Nucleated RBCs # 0 K/uL Sodium 138 (136-146) mmol/L Potassium 3.7 (3.5-5.1) mmol/L Chloride 107 (98-110) mmol/L Carbon Dioxide 21 (21-31) mmol/L BUN 15 (6.0-23.0) mg/dL Creatinine 0.8 (0.6-1.5) mg/dL Est Cr Clr Drug Dosing 111.98 mL/min Estimated GFR (MDRD) > 60.0 ml/min Glucose 123 H (60-110) mg/dL POC Glucose (60-110) mg/dL Calcium 8.7 L (8.8-10.8) mg/dL Magnesium 1.5 (1.5-2.3) mEq/L Total Bilirubin 0.4 (0.1-1.5) mg/dL AST 13 (5-40) IU/L ALT 14 (8-54) IU/L Alkaline Phosphatase 57 (40-150) Total Protein 5.9 L (6.0-8.0) g/dL Albumin 2.6 L (3.5-5.0) g/dL Globulin 3.3 (2.0-3.5) g/dL Albumin/Globulin Ratio 0.8 L (1.3-2.8) Robinson Results Last 24 Hours: Microbiology 04/10/17 14:30 Aerobic Blood Culture - Preliminary Blood - Venous - Lab Draw NO GROWTH AFTER 3 DAYS Anaerobic Blood Culture - Preliminary NO GROWTH AFTER 3 DAYS 04/10/17 14:20 Aerobic Blood Culture - Preliminary Blood - Venous NO GROWTH AFTER 3 DAYS Anaerobic Blood Culture - Preliminary NO GROWTH AFTER 3 DAYS Med Orders - Current: Current Medications Diltiazem HCl (Diltiazem) 0 mg IVPUSH Q1H PRN; Protocol PRN Reason: Arrhythmia Last Admin: 04/12/17 13:04 Dose: 5 mg Diltiazem HCl (Cardizem) 60 mg PO Q6HR [facility] Last Admin: 04/14/17 07:29 Dose: 60 mg Famotidine (Pepcid) 20 mg IVPUSH BID [facility] Last Admin: 04/14/17 08:00 Dose: 20 mg Heparin Sodium (Porcine) (Heparin Sodium) 5,000 units SUBCUT Q8H [facility] Last Admin: 04/14/17 06:44 Dose: 5,000 units Levofloxacin/Dextrose 750 mg/ (Premix) 150 mls @ 100 mls/hr IV Q24H [facility] Last Admin: 04/13/17 13:47 Dose: 100 mls/hr Metronidazole 500 mg/ Premix 100 mls @ 100 mls/hr IV Q8H [facility] Last Admin: 04/14/17 02:03 Dose: 100 mls/hr Diltiazem HCl 100 mg/ Sodium (Chloride) 100 mls @ 5 mls/hr IV TITRATE NORM; 5 MG /HR PRN Reason: Protocol Last Titration: 04/13/17 02:05 Dose: 5 mg/hr, 5 mls/hr Sodium Chloride (Normal Saline) 1,000 mls @ 75 mls/hr IV ASDIRECTED [facility] Last Admin: 04/13/17 21:06 Dose: 75 mls/hr Magnesium Sulfate 4 gm/ Premix 100 mls @ 50 mls/hr IV ONETIME ONE Stop: 04/14/17 10:04 Last Admin: 04/14/17 08:17 Dose: 50 mls/hr Insulin Aspart (Novolog) 0 unit SUBCUT TIDAC [facility] PRN Reason: Protocol Last Admin: 04/14/17 06:39 Dose: Not Given Metoclopramide HCl (Reglan) 10 mg IVPUSH Q6H [facility] Last Admin: 04/14/17 07:54 Dose: 10 mg Metoprolol Succinate (Toprol Xl) 100 mg PO DAILY [facility] Last Admin: 04/14/17 08:01 Dose: 100 mg Morphine Sulfate (Morphine) 2 mg IVPUSH Q2H PRN PRN Reason: Pain Last Admin: 04/11/17 21:32 Dose: 2 mg Morphine Sulfate (Morphine) 0 mg IVPUSH Q1H PRN PRN Reason: Pain (severe 7-10) Ondansetron HCl (Zofran) 4 mg IVPUSH Q6H PRN PRN Reason: Nausea/Vomiting Discontinued Medications Bupivacaine HCl (Marcaine 0.5%) Confirm Administered Dose 30 ml .ROUTE .STK-MED ONE Stop: 04/10/17 17:34 Cefazolin Sodium (Ancef) Confirm Administered Dose 1 gm .ROUTE .STK-MED ONE Stop: 04/10/17 17:34 Digoxin (Lanoxin) 250 mcg IVPUSH ONETIME ONE Stop: 04/11/17 15:00 Last Admin: 04/11/17 19:41 Dose: Not Given Digoxin (Lanoxin) Confirm Administered Dose 500 mcg .ROUTE .STK-MED ONE Stop: 04/11/17 15:26 Last Admin: 04/11/17 19:41 Dose: Not Given Digoxin (Lanoxin) 250 mcg IVPUSH ONETIME ONE Stop: 04/11/17 18:39 Last Admin: 04/11/17 19:45 Dose: 250 mcg Diltiazem HCl (Diltiazem) 20 mg IVPUSH ONETIME ONE Stop: 04/11/17 20:50 Last Admin: 04/11/17 21:05 Dose: 20 mg Diltiazem HCl (Diltiazem) 20 mg IVPUSH ONETIME ONE Stop: 04/11/17 22:20 Last Admin: 04/11/17 22:36 Dose: 20 mg Diltiazem HCl (Diltiazem) Confirm Administered Dose 25 mg .ROUTE .STK-MED ONE Stop: 04/11/17 22:36 Last Admin: 04/11/17 22:42 Dose: Not Given Diltiazem HCl (Diltiazem) Confirm Administered Dose 25 mg .ROUTE .STK-MED ONE Stop: 04/12/17 09:02 Last Admin: 04/12/17 09:07 Dose: 5 mg Diltiazem HCl (Cardizem) 30 mg PO Q6HR NORM Last Admin: 04/13/17 17:44 Dose: 30 mg Diltiazem HCl (Cardizem) 30 mg PO ONETIME ONE Stop: 04/13/17 18:50 Last Admin: 04/13/17 18:55 Dose: 30 mg Etomidate (Amidate) Confirm Administered Dose 40 mg IVPUSH .STK-MED ONE Stop: 04/10/17 17:22 Fentanyl (Sublimaze) Confirm Administered Dose 250 mcg .ROUTE .STK-MED ONE Stop: 04/10/17 17:22 Heparin Sodium (Porcine) (Heparin Sodium) Confirm Administered Dose 5,000 units .ROUTE .STK-MED ONE Stop: 04/11/17 12:51 Last Admin: 04/11/17 19:41 Dose: Not Given Metronidazole 500 mg/ Premix 100 mls @ 100 mls/hr IV Q8H NORM Last Admin: 04/10/17 17:47 Dose: Not Given Sodium Chloride (Normal Saline) 500 mls @ 1,000 mls/hr IV .BOLUS NORM Last Admin: 04/10/17 15:45 Dose: 1,000 mls/hr Sodium Chloride (Normal Saline) 1,000 mls @ 125 mls/hr IV ASDIRECTED NORM Last Admin: 04/10/17 22:48 Dose: 150 mls/hr Dopamine HCl/Dextrose (Dopamine In D5w 400 Mg/250 Ml) 400 mg in 250 mls @ 8.67 mls/hr IV TITRATE NORM; 2 MCG/KG/MIN PRN Reason: Protocol Norepinephrine Bitartrate (Norepinephr-0.9% Nacl 4 Mg/250) 4 mg in 250 mls @ 7.5 mls/hr IV TITRATE NORM; 2 MCG/MIN PRN Reason: Protocol Last Titration: 04/11/17 04:39 Dose: 3 mcg/min, 11.25 mls/hr Vasopressin 100 units/ Sodium (Chloride) 100 mls @ 0 mls/hr IV TITRATE NORM; Per Protocol PRN Reason: Protocol Last Titration: 04/11/17 20:30 Dose: 0 units/min, 0 mls/hr Sodium Chloride (Normal Saline) Confirm Administered Dose 20 mls @ as directed .ROUTE .STK-MED ONE Stop: 04/10/17 17:24 Sodium Chloride (Normal Saline) 500 mls @ 999 mls/hr IV .BOLUS NORM Last Admin: 04/10/17 18:11 Dose: Not Given Acetaminophen (Ofirmev) Confirm Administered Dose 100 mls @ as directed IV .STK- MED ONE Stop: 04/10/17 19:13 Lactated Ringer's (Ringers, Lactated) 1,000 mls @ 175 mls/hr IV ASDIRECTED NORM Stop: 04/11/17 00:08 Sodium Chloride (Normal Saline) 1,000 mls @ 150 mls/hr IV ASDIRECTED [facility] Last Infusion: 04/11/17 23:15 Dose: 75 mls/hr Magnesium Sulfate (Magnesium Sulfate 2 Gm In Water 50 Ml) Confirm Administered Dose 50 mls @ as directed .ROUTE .STK-MED ONE Stop: 04/11/17 12:51 Last Admin: 04/11/17 19:41 Dose: Not Given Sodium Chloride (Normal Saline) Confirm Administered Dose 100 mls @ as directed .ROUTE .STK-MED ONE Stop: 04/11/17 22:26 Last Admin: 04/11/17 22:29 Dose: Not Given Magnesium Sulfate 4 gm/ Premix 100 mls @ 50 mls/hr IV ONETIME ONE Stop: 04/13/17 11:26 Last Admin: 04/13/17 09:39 Dose: 50 mls/hr Magnesium Sulfate 4 gm/ Premix 100 mls @ 50 mls/hr IV ONETIME ONE Stop: 04/13/17 13:29 Last Admin: 04/13/17 11:37 Dose: 50 mls/hr Insulin Aspart (Novolog) 0 unit SUBCUT Q6H NORM PRN Reason: Protocol Last Admin: 04/12/17 06:55 Dose: Not Given Ketamine HCl (Ketalar) Confirm Administered Dose 500 mg .ROUTE .STK-MED ONE Stop: 04/10/17 17:22 Lidocaine (Xylocaine-Mpf 2%) Confirm Administered Dose 5 ml .ROUTE .STK-MED ONE Stop: 04/10/17 17:22 Lorazepam (Ativan) 1 mg IVPUSH ONETIME ONE Stop: 04/11/17 22:19 Last Admin: 04/11/17 22:26 Dose: 1 mg Metoprolol Succinate (Toprol Xl) 50 mg PO DAILY [facility] Last Admin: 04/13/17 08:00 Dose: 50 mg Metoprolol Succinate (Toprol Xl) 50 mg PO ONETIME ONE Stop: 12/21/17 09:12 Last Admin: 04/13/17 09:38 Dose: 50 mg Midazolam HCl (Versed 1 Mg/Ml) Confirm Administered Dose 2 mg .ROUTE .STK-MED ONE Stop: 04/10/17 17:22 Ondansetron HCl (Zofran) 4 mg IVPUSH Q4H PRN PRN Reason: Nausea Ondansetron HCl (Zofran) Confirm Administered Dose 4 mg .ROUTE .STK-MED ONE Stop: 04/10/17 17:22 Phenylephrine HCl (Phenylephrine In Ns 100 Mcg/Ml) Confirm Administered Dose 1 mg .ROUTE .STK-MED ONE Stop: 04/10/17 18:15 Potassium Chloride (Klor-Con M20) 40 meq PO ONETIME ONE Stop: 04/14/17 08:05 Last Admin: 04/14/17 08:17 Dose: 40 meq Rocuronium [place] (Zemuron) Confirm Administered Dose 100 mg .ROUTE .STK-MED ONE Stop: 04/10/17 17:22 Succinylcholine Chloride (Succinylcholine In Ns Pf) Confirm Administered Dose 200 mg .ROUTE .STK-MED ONE Stop: 04/10/17 17:22 - Exam General: Alert, Oriented, Cooperative, No Acute Distress HEENT: Pupils Equal, Pupils Reactive, EOMI, Mucous Membr. Moist/[place] Neck: Supple. No: Carotid Bruit, JVD Lungs: Clear to Auscultation, Normal Respiratory Effort Cardiovascular: Tachycardia GI/Abdominal Exam: Normal Bowel Sounds, Soft, Distended, Tender. No: Guarding, Rigid, Rebound Extremities: Normal Inspection, No Pedal Edema, Normal Capillary Refill Peripheral Pulses: 2+: Radial (L), Radial (R) Skin: Intact Neurological: No New Focal Deficit Psy/Mental Status: Alert, Normal Mood - Problem List Review Problem List Initiated/Reviewed/Updated: Yes - My Orders Last 24 Hours: My Active Orders 04/14/17 00:00 Diltiazem IR [Cardizem] 60 mg PO Q6HR 04/14/17 08:05 Magnesium Sulfate/Water [Magnesium Sulfate 4 GM in Water 100 ML] 4 gm Premix Bag 1 bag IV ONETIME 04/14/17 09:00 Metoprolol Succinate [Toprol XL] 100 mg PO DAILY - Plan Plan:: 56 yo male initially admitted for diffuse peritonitis and AF with RVR. Initially was on Cardizem drip but converted back to sinus. Ryythm now fluctuates bw fibrillation and flutter. HR 100-130. 1. Acute Peritonitis, secondary to Perforated Appendix -on Levaquin and Metronidazole -patient doing well, no fever/nausea/vomiting, 3 bm's yesterday, passing gas but complains of moderate pain with passing -bowel sounds present, mild right abdominal tenderness, distension present plan: -continue Levaquin & Metronidazole -Continue zofran prn for nausea -continue morphine prn for pain -surgery on board, continue management as per rec's 2. HTN, controlled -home regimen includes Toprol 50 mg QD and Ramipril 2.5 mg QD plan: -Toprol resumed, holding Ramipril until HR controlled 3. Arrythmia -fluctuating bw Atrial fibrillation and flutter -as per EHR, patient had isolated incident of AF in 2011 that resolved -on 04/13: increased Toprol to 100 mg QD, added Cardizem 60 mg QID -denies chest pain/palpitations/sob -HR 100-130, bp stable Plan: -echo ordered -continue Toprol to 100 mg QD -increase Cardizem to 90 mg QID -Target Mg over 2 and K over 4 -consult cardio 4. Hypomagnasemia -current Mg 1.5 plan: -Mg 4 mg IV single dose then 2 mg single dose -repeat Mg in AM 5. Leukocytosis -likely secondary to #3 plan: -continue to monitor WBC count 6. Septic Shock, secondary to #1 -resolved, off pressors, vitals stable, no fever plan: -continue to monitor 7. DM T2 -continue BG monitoring and ISS
[2017-04-14] MEDS ORDERED: Diltiazem IR 30 MG Tab PO ONE (08:43)
[2017-04-14] MEDS: Levofloxacin/Dextrose 5%-Water 750 MG in Premix Bag 1 BAG IV SCH (13:44)
[2017-04-14] MEDS ORDERED: Iopamidol 755 MG/ML 50 ML Bottle IV STA (16:46)
--- NOTE | 2017-04-14 17:28 | CONS ---
DATE OF CONSULTATION: DATE OF : 1960 PRIMARY CARE PHYSICIAN: Norris Bernstein REASON FOR CONSULTATION: Atrial fibrillation. HISTORY OF PRESENT ILLNESS: This is a 56-year-old bisi with history of atrial fibrillation, hypertension, diabetes, questioning history of a stroke who presented to the hospital because of abdominal pain and found to have a ruptured appendix. He got operation 5 days ago and currently he has been on IV antibiotics as well he started eating. From appendicitis standpoint, he seemed to be better, however, after surgery he started being in and out of atrial fibrillation with a heart rate of 120-130 and in and out of the atrial fibrillation. He stated that he did not see a regular heartbeat, chest pain, or shortness of breath. He is able to ambulate around without any symptoms of shortness of breath, and he knows that may be on the right leg seemed to be little puffy than the left, leg but no pain, no tenderness on his calf. He also had a history of atrial fibrillation diagnosed 6 years ago. However, he did not recall that he was recommended to take the Coumadin or anticoagulation at that time. He stated that 6 years ago also had a coronary angiogram done in [place] and he was told there was no blockage at that time. Otherwise, he is taking ramipril as well as metoprolol 50 mg once a day at home. He also was saying that Dr. Maxwell told him that he may have had a stroke. However, he never experienced symptoms. He had an imaging of his brain done in the past before. PAST MEDICAL HISTORY: Including diabetes, hypertension question stroke. SOCIAL HISTORY: Occasional drinking. Denies smoking. No IV drug use. FAMILY HISTORY: Mother had history of cancer. Father had history of MA. CURRENT MEDICATIONS: Including Toprol-XL 100 mg once a day, Cardizem 90 mg q.6 hours. ALLERGIES: No known drug allergies. PHYSICAL EXAMINATION: VITAL SIGNS: Blood pressure 152/73, heart rate is 79, sinus rhythm, temperature 36.4, O2 saturation 92% on 2 L. No pallor, no jaundice, no JVD. HEART: Normal S1, S2. No murmur. LUNGS: Clear. ABDOMEN: Soft, nontender. Bowel sounds are present. No hepatosplenomegaly. EXTREMITIES: Very trace edema on the right side compared to the left side. INVESTIGATION: CBC showed WBC 11 is improving, hematocrit 39, and platelet 215. Sodium 138, potassium 3.7, chloride 107, bicarb 21, BUN 15, creatinine 0.8. Echocardiogram showed preserved ejection fraction. RV systolic function seemed to be mild . ASSESSMENT AND PLAN: This is a 56-year-old male with history of hypertension, diabetes, who was admitted to the hospital with ruptured appendicitis status post exploratory appendectomy postop day #5. He seemed to be doing well regarding atrial fibrillation. Quite possible that he already had atrial fibrillation before and he did not feel any symptoms of atrial fibrillation. I will continue the same medication without adjusting, however, his Jose Vasc score is at least 2. So, he would need a long-term anticoagulation. Regarding his surgical stand point, anticoagulation will be started tomorrow and recommended Xarelto 20 mg once a day and also in the meantime because of RV dilatation, I would like to do a CAT scan and angiogram to rule out PE as well. ADENIKE / SEJAL /[phone]
--- NOTE | 2017-04-14 17:52 | PCM.POSTAN ---
POST ANESTHESIA ASSESSMENT - MENTAL STATUS Mental Status: Alert, Oriented - RESPIRATORY Respiratory Status: Respiratory Rate WNL, Airway Patent, O2 Saturation Stable - CARDIOVASCULAR CV Status: Pulse Rate WNL, Blood Pressure Stable - GASTROINTESTINAL GI Status: No Symptoms - POST OP HYDRATION Hydration Status: Adequate & Stable
--- NOTE | 2017-04-14 17:53 | PCM48HPAN ---
Post Anesthesia Note - EVALUATION WITHIN 48HRS OF ANESTHETIC Vital Signs in Normal Range: Yes Patient Participated in Evaluation: Yes Respiratory Function Stable: Yes Airway Patent: Yes Cardiovascular Function Stable: Yes Hydration Status Stable: Yes Pain Control Satisfactory: Yes Nausea and Vomiting Control Satisfactory: Yes Mental Status Recovered: Yes - COMMENTS/OBSERVATIONS Free Text/Narrative:: Levophed was weaned down overnight. Pt currently remains on vasopressin drip at 4units/hr.
--- NOTE | 2017-04-14 19:07 | PCM.SN ---
- Free Text/Narrative Note: Called at 181 by [facility] radiology on Chest CT of patient which revealed segmental PE's in the left lower lobe. Discussed case with Dr. Villatoro surgeon and decided to heparinize patient this evening. We will stop heparin at [address] Villatoro will pull JADON at approx. 9-10 am. We will then restart anticoagulation. Talked with patient and he is in understanding and agreement of treatment.
[2017-04-14] MEDS: Heparin Sodium 5,000 Units/ML Vial IVPUSH PRN (20:02)
[2017-04-14] MEDS: Heparin Sod,Pork In 0.45% Nacl 25,000 UNIT/500 ML IV.SOLN IV SCH (20:06)
[2017-04-14] MEDS: Diltiazem 180 MG Cap.CD PO SCH (22:52)
[2017-04-15] MEDS: Metoclopramide 10 MG/2 ML SDV IVPUSH SCH ×4 (01:23→20:13)
[2017-04-15] MEDS: metroNIDAZOLE/Normal Saline 500 MG in Premix Bag 1 BAG IV SCH ×3 (01:24→16:30)
[2017-04-15] MEDS: Heparin Sodium 5,000 Units/ML Vial IVPUSH PRN ×3 (02:19→23:12)
[2017-04-15 07:38] LABS: CHLORIDE,CL 106 mmol/L (98-110); SODIUM,NA 139 mmol/L (136-146)
[2017-04-15] MEDS: Insulin Aspart 100 Units/ML 3 ML Pen SUBCUT SCH ×3 (07:58→16:44)
--- NOTE | 2017-04-15 10:22 | PCM.SURGPN ---
- General Info Date of Service: 04/15/17 Date of Surgery/Procedure: 04/10/17 POD#: 5 Post-Op Diagnosis: Acute appendicitis w/ diffuse peritonitis Functional Status: Reports: Pain Controlled, Tolerating Diet, Ambulating, Urinating - Review of Systems General: Reports: Appetite. Denies: Fever, Malaise, Chills, Night Sweats HEENT: Reports: No Symptoms Pulmonary: Denies: Shortness of Breath, Cough, Hemoptysis Cardiovascular: Denies: Chest Pain, Palpitations Gastrointestinal: Reports: Flatus. Denies: Abdominal Pain, Constipation, Diarrhea, Hematochezia, Melena, Nausea, Vomiting Genitourinary: Reports: No Symptoms Musculoskeletal: Reports: No Symptoms Skin: Denies: Cyanosis, Jaundice, Mottled, Pallor Neurological: Denies: No Symptoms Psychiatric: Denies: No Symptoms - Patient Data Vitals - Most Recent: Last Vital Signs Temp 97.4 F 04/15/17 09:10 Pulse 84 04/15/17 09:10 Resp 21 H 04/15/17 09:10 BP 155/98 H 04/15/17 09:10 Pulse Ox 93 L 04/15/17 09:10 Weight - Most Recent: 255 lb 11.779 oz I&O - Last 24 Hours: Intake & Output 04/14/17 04/15/17 04/15/17 19:59 03:59 11:59 Intake Total 1587 200 Output Total 2155 1126 Balance -568 926 Lab Results Last 24 Hrs: Laboratory Results - last 24 hr 04/14/17 04/14/17 04/14/17 Range/Units 06:36 11:07 11:25 WBC (4.0-11.0) K/uL RBC (4.50-5.90) M/uL Hgb (13.0-17.0) g/dL Hct (38.0-50.0) % MCV (80.0-98.0) fL MCH (27.0-32.0) pg MCHC (31.0-37.0) g/dL RDW Std Deviation (28.0-62.0) fl RDW Coeff of Aureliano (11.0-15.0) % Plt Count (150-400) K/uL MPV (7.40-12.00) fL Add Manual Diff Neutrophils % (Manual) (48.0-80.0) % Band Neutrophils % % Lymphocytes % (Manual) (16.0-40.0) % Monocytes % (Manual) (0.0-15.0) % Basophils % (Manual) (0.0-1.5) % Nucleated RBC % /100WBC Absolute Seg Neuts (1.4-5.7) Band Neutrophils # Lymphocytes # (Manual) (0.6-2.4) Monocytes # (Manual) (0.0-0.8) Basophils # (Manual) (0.0-0.1) Nucleated RBCs # K/uL APTT (18.6-31.3) SEC Sodium (136-146) mmol/L Potassium (3.5-5.1) mmol/L Chloride (98-110) mmol/L Carbon Dioxide (21-31) mmol/L BUN (6.0-23.0) mg/dL Creatinine (0.6-1.5) mg/dL Est Cr Clr Drug Dosing mL/min Estimated GFR (MDRD) ml/min Glucose (60-110) mg/dL POC Glucose 118 H 126 H (60-110) mg/dL Calcium (8.8-10.8) mg/dL Magnesium 2.2 (1.5-2.3) mEq/L Total Bilirubin (0.1-1.5) mg/dL AST (5-40) IU/L ALT (8-54) IU/L Alkaline Phosphatase (40-150) Total Protein (6.0-8.0) g/dL Albumin (3.5-5.0) g/dL Globulin (2.0-3.5) g/dL Albumin/Globulin Ratio (1.3-2.8) 04/14/17 04/14/17 04/15/17 Range/Units 17:27 18:53 01:20 WBC (4.0-11.0) K/uL RBC (4.50-5.90) M/uL Hgb (13.0-17.0) g/dL Hct (38.0-50.0) % MCV (80.0-98.0) fL MCH (27.0-32.0) pg MCHC (31.0-37.0) g/dL RDW Std Deviation (28.0-62.0) fl RDW Coeff of Aureliano (11.0-15.0) % Plt Count (150-400) K/uL MPV (7.40-12.00) fL Add Manual Diff Neutrophils % (Manual) (48.0-80.0) % Band Neutrophils % % Lymphocytes % (Manual) (16.0-40.0) % Monocytes % (Manual) (0.0-15.0) % Basophils % (Manual) (0.0-1.5) % Nucleated RBC % /100WBC Absolute Seg Neuts (1.4-5.7) Band Neutrophils # Lymphocytes # (Manual) (0.6-2.4) Monocytes # (Manual) (0.0-0.8) Basophils # (Manual) (0.0-0.1) Nucleated RBCs # K/uL APTT 28.0 35.5 H (18.6-31.3) SEC Sodium (136-146) mmol/L Potassium (3.5-5.1) mmol/L Chloride (98-110) mmol/L Carbon Dioxide (21-31) mmol/L BUN (6.0-23.0) mg/dL Creatinine (0.6-1.5) mg/dL Est Cr Clr Drug Dosing mL/min Estimated GFR (MDRD) ml/min Glucose (60-110) mg/dL POC Glucose 128 H (60-110) mg/dL Calcium (8.8-10.8) mg/dL Magnesium (1.5-2.3) mEq/L Total Bilirubin (0.1-1.5) mg/dL AST (5-40) IU/L ALT (8-54) IU/L Alkaline Phosphatase (40-150) Total Protein (6.0-8.0) g/dL Albumin (3.5-5.0) g/dL Globulin (2.0-3.5) g/dL Albumin/Globulin Ratio (1.3-2.8) 04/15/17 04/15/17 04/15/17 Range/Units 06:54 06:54 06:54 WBC 11.53 H (4.0-11.0) K/uL RBC 4.94 (4.50-5.90) M/uL Hgb 13.1 (13.0-17.0) g/dL Hct 40.9 (38.0-50.0) % MCV 82.8 (80.0-98.0) fL MCH 26.5 L (27.0-32.0) pg MCHC 32.0 (31.0-37.0) g/dL RDW Std Deviation 44.4 (28.0-62.0) fl RDW Coeff of Aureliano 15 (11.0-15.0) % Plt Count 212 (150-400) K/uL MPV 9.20 (7.40-12.00) fL Add Manual Diff YES Neutrophils % (Manual) 80 (48.0-80.0) % Band Neutrophils % 3 % Lymphocytes % (Manual) 11 L (16.0-40.0) % Monocytes % (Manual) 5 (0.0-15.0) % Basophils % (Manual) 1 (0.0-1.5) % Nucleated RBC % 0.0 /100WBC Absolute Seg Neuts 9.2 H (1.4-5.7) Band Neutrophils # 0.3 Lymphocytes # (Manual) 1.3 (0.6-2.4) Monocytes # (Manual) 0.6 (0.0-0.8) Basophils # (Manual) 0.1 (0.0-0.1) Nucleated RBCs # 0 K/uL APTT 35.9 H (18.6-31.3) SEC Sodium 139 (136-146) mmol/L Potassium 3.5 (3.5-5.1) mmol/L Chloride 106 (98-110) mmol/L Carbon Dioxide 25 (21-31) mmol/L BUN 16 (6.0-23.0) mg/dL Creatinine 0.8 (0.6-1.5) mg/dL Est Cr Clr Drug Dosing 111.98 mL/min Estimated GFR (MDRD) > 60.0 ml/min Glucose 130 H (60-110) mg/dL POC Glucose (60-110) mg/dL Calcium 9.1 (8.8-10.8) mg/dL Magnesium 1.3 L (1.5-2.3) mEq/L Total Bilirubin 0.3 (0.1-1.5) mg/dL AST 13 (5-40) IU/L ALT 15 (8-54) IU/L Alkaline Phosphatase 53 (40-150) Total Protein 6.1 (6.0-8.0) g/dL Albumin 2.8 L (3.5-5.0) g/dL Globulin 3.3 (2.0-3.5) g/dL Albumin/Globulin Ratio 0.9 L (1.3-2.8) 04/15/17 Range/Units 07:02 WBC (4.0-11.0) K/uL RBC (4.50-5.90) M/uL Hgb (13.0-17.0) g/dL Hct (38.0-50.0) % MCV (80.0-98.0) fL MCH (27.0-32.0) pg MCHC (31.0-37.0) g/dL RDW Std Deviation (28.0-62.0) fl RDW Coeff of Aureliano (11.0-15.0) % Plt Count (150-400) K/uL MPV (7.40-12.00) fL Add Manual Diff Neutrophils % (Manual) (48.0-80.0) % Band Neutrophils % % Lymphocytes % (Manual) (16.0-40.0) % Monocytes % (Manual) (0.0-15.0) % Basophils % (Manual) (0.0-1.5) % Nucleated RBC % /100WBC Absolute Seg Neuts (1.4-5.7) Band Neutrophils # Lymphocytes # (Manual) (0.6-2.4) Monocytes # (Manual) (0.0-0.8) Basophils # (Manual) (0.0-0.1) Nucleated RBCs # K/uL APTT (18.6-31.3) SEC Sodium (136-146) mmol/L Potassium (3.5-5.1) mmol/L Chloride (98-110) mmol/L Carbon Dioxide (21-31) mmol/L BUN (6.0-23.0) mg/dL Creatinine (0.6-1.5) mg/dL Est Cr Clr Drug Dosing mL/min Estimated GFR (MDRD) ml/min Glucose (60-110) mg/dL POC Glucose 108 (60-110) mg/dL Calcium (8.8-10.8) mg/dL Magnesium (1.5-2.3) mEq/L Total Bilirubin (0.1-1.5) mg/dL AST (5-40) IU/L ALT (8-54) IU/L Alkaline Phosphatase (40-150) Total Protein (6.0-8.0) g/dL Albumin (3.5-5.0) g/dL Globulin (2.0-3.5) g/dL Albumin/Globulin Ratio (1.3-2.8) Robinson Results Last 24 Hrs: Microbiology 04/10/17 14:30 Aerobic Blood Culture - Preliminary Blood - Venous - Lab Draw NO GROWTH AFTER 4 DAYS Anaerobic Blood Culture - Preliminary NO GROWTH AFTER 4 DAYS 04/10/17 14:20 Aerobic Blood Culture - Preliminary Blood - Venous NO GROWTH AFTER 4 DAYS Anaerobic Blood Culture - Preliminary NO GROWTH AFTER 4 DAYS Med Orders - Current: Current Medications Diltiazem HCl (Diltiazem) 0 mg IVPUSH Q1H PRN; Protocol PRN Reason: Arrhythmia Last Admin: 04/12/17 13:04 Dose: 5 mg Diltiazem HCl (Cardizem Cd) 360 mg PO Q24H NORM Last Admin: 04/14/17 22:52 Dose: 360 mg Famotidine (Pepcid) 20 mg IVPUSH BID NORM Last Admin: 04/14/17 20:14 Dose: 20 mg Heparin Sodium (Porcine) (Heparin Sodium) 0 units IVPUSH ASDIRECTED PRN; Protocol PRN Reason: see heparin protocol Last Admin: 04/15/17 02:19 Dose: 1,500 units Levofloxacin/Dextrose 750 mg/ (Premix) 150 mls @ 100 mls/hr IV Q24H NORM Last Admin: 04/14/17 13:44 Dose: 100 mls/hr Metronidazole 500 mg/ Premix 100 mls @ 100 mls/hr IV Q8H NORM Last Admin: 04/15/17 01:24 Dose: 100 mls/hr Diltiazem HCl 100 mg/ Sodium (Chloride) 100 mls @ 5 mls/hr IV TITRATE NORM; 5 MG /HR PRN Reason: Protocol Last Titration: 04/13/17 02:05 Dose: 5 mg/hr, 5 mls/hr Heparin Sod,Pork In 0.45% Nacl (Heparin-1/2ns 25,000 Units/500) 25,000 unit in 500 mls @ 26 mls/hr IV TITRATE NORM PRN Reason: Protocol Last Titration: 04/15/17 09:48 Dose: 13.01 units/kg/hr, 30.704 mls/hr Insulin Aspart (Novolog) 0 unit SUBCUT TIDAC [facility] PRN Reason: Protocol Last Admin: 04/15/17 07:58 Dose: Not Given Metoclopramide HCl (Reglan) 10 mg IVPUSH Q6H [facility] Last Admin: 04/15/17 01:23 Dose: 10 mg Metoprolol Succinate (Toprol Xl) 100 mg PO DAILY [facility] Last Admin: 04/14/17 08:01 Dose: 100 mg Morphine Sulfate (Morphine) 2 mg IVPUSH Q2H PRN PRN Reason: Pain Last Admin: 04/11/17 21:32 Dose: 2 mg Morphine Sulfate (Morphine) 0 mg IVPUSH Q1H PRN PRN Reason: Pain (severe 7-10) Ondansetron HCl (Zofran) 4 mg IVPUSH Q6H PRN PRN Reason: Nausea/Vomiting Discontinued Medications Bupivacaine HCl (Marcaine 0.5%) Confirm Administered Dose 30 ml .ROUTE .STK-MED ONE Stop: 04/10/17 17:34 Cefazolin Sodium (Ancef) Confirm Administered Dose 1 gm .ROUTE .STK-MED ONE Stop: 04/10/17 17:34 Digoxin (Lanoxin) 250 mcg IVPUSH ONETIME ONE Stop: 04/11/17 15:00 Last Admin: 04/11/17 19:41 Dose: Not Given Digoxin (Lanoxin) Confirm Administered Dose 500 mcg .ROUTE .STK-MED ONE Stop: 04/11/17 15:26 Last Admin: 04/11/17 19:41 Dose: Not Given Digoxin (Lanoxin) 250 mcg IVPUSH ONETIME ONE Stop: 04/11/17 18:39 Last Admin: 04/11/17 19:45 Dose: 250 mcg Diltiazem HCl (Diltiazem) 20 mg IVPUSH ONETIME ONE Stop: 04/11/17 20:50 Last Admin: 04/11/17 21:05 Dose: 20 mg Diltiazem HCl (Diltiazem) 20 mg IVPUSH ONETIME ONE Stop: 04/11/17 22:20 Last Admin: 04/11/17 22:36 Dose: 20 mg Diltiazem HCl (Diltiazem) Confirm Administered Dose 25 mg .ROUTE .STK-MED ONE Stop: 04/11/17 22:36 Last Admin: 04/11/17 22:42 Dose: Not Given Diltiazem HCl (Diltiazem) Confirm Administered Dose 25 mg .ROUTE .STK-MED ONE Stop: 04/12/17 09:02 Last Admin: 04/12/17 09:07 Dose: 5 mg Diltiazem HCl (Cardizem) 30 mg PO Q6HR [facility] Last Admin: 04/13/17 17:44 Dose: 30 mg Diltiazem HCl (Cardizem) 30 mg PO ONETIME ONE Stop: 04/13/17 18:50 Last Admin: 04/13/17 18:55 Dose: 30 mg Diltiazem HCl (Cardizem) 60 mg PO Q6HR [facility] Last Admin: 04/14/17 07:29 Dose: 60 mg Diltiazem HCl (Cardizem) 30 mg PO ONETIME ONE Stop: 04/14/17 08:44 Last Admin: 04/14/17 08:49 Dose: 30 mg Diltiazem HCl (Cardizem) 90 mg PO Q6HR NORM Stop: 04/14/17 18:00 Last Admin: 04/14/17 17:19 Dose: 90 mg Etomidate (Amidate) Confirm Administered Dose 40 mg IVPUSH .STK-MED ONE Stop: 04/10/17 17:22 Fentanyl (Sublimaze) Confirm Administered Dose 250 mcg .ROUTE .STK-MED ONE Stop: 04/10/17 17:22 Heparin Sodium (Porcine) (Heparin Sodium) Confirm Administered Dose 5,000 units .ROUTE .STK-MED ONE Stop: 04/11/17 12:51 Last Admin: 04/11/17 19:41 Dose: Not Given Heparin Sodium (Porcine) (Heparin Sodium) 5,000 units SUBCUT Q8H [facility] Last Admin: 04/14/17 13:44 Dose: 5,000 units Metronidazole 500 mg/ Premix 100 mls @ 100 mls/hr IV Q8H [facility] Last Admin: 04/10/17 17:47 Dose: Not Given Sodium Chloride (Normal Saline) 500 mls @ 1,000 mls/hr IV .BOLUS [facility] Last Admin: 04/10/17 15:45 Dose: 1,000 mls/hr Sodium Chloride (Normal Saline) 1,000 mls @ 125 mls/hr IV ASDIRECTED NORM Last Admin: 04/10/17 22:48 Dose: 150 mls/hr Dopamine HCl/Dextrose (Dopamine In D5w 400 Mg/250 Ml) 400 mg in 250 mls @ 8.67 mls/hr IV TITRATE NORM; 2 MCG/KG/MIN PRN Reason: Protocol Norepinephrine Bitartrate (Norepinephr-0.9% Nacl 4 Mg/250) 4 mg in 250 mls @ 7.5 mls/hr IV TITRATE NORM; 2 MCG/MIN PRN Reason: Protocol Last Titration: 04/11/17 04:39 Dose: 3 mcg/min, 11.25 mls/hr Vasopressin 100 units/ Sodium (Chloride) 100 mls @ 0 mls/hr IV TITRATE NORM; Per Protocol PRN Reason: Protocol Last Titration: 04/11/17 20:30 Dose: 0 units/min, 0 mls/hr Sodium Chloride (Normal Saline) Confirm Administered Dose 20 mls @ as directed .ROUTE .STK-MED ONE Stop: 04/10/17 17:24 Sodium Chloride (Normal Saline) 500 mls @ 999 mls/hr IV .BOLUS NORM Last Admin: 04/10/17 18:11 Dose: Not Given Acetaminophen (Ofirmev) Confirm Administered Dose 100 mls @ as directed IV .STK- MED ONE Stop: 04/10/17 19:13 Lactated Ringer's (Ringers, Lactated) 1,000 mls @ 175 mls/hr IV ASDIRECTED NORM Stop: 04/11/17 00:08 Sodium Chloride (Normal Saline) 1,000 mls @ 150 mls/hr IV ASDIRECTED NORM Last Infusion: 04/11/17 23:15 Dose: 75 mls/hr Magnesium Sulfate (Magnesium Sulfate 2 Gm In Water 50 Ml) Confirm Administered Dose 50 mls @ as directed .ROUTE .STK-MED ONE Stop: 04/11/17 12:51 Last Admin: 04/11/17 19:41 Dose: Not Given Sodium Chloride (Normal Saline) Confirm Administered Dose 100 mls @ as directed .ROUTE .STK-MED ONE Stop: 04/11/17 22:26 Last Admin: 04/11/17 22:29 Dose: Not Given Sodium Chloride (Normal Saline) 1,000 mls @ 75 mls/hr IV ASDIRECTED NORM Last Admin: 04/13/17 21:06 Dose: 75 mls/hr Magnesium Sulfate 4 gm/ Premix 100 mls @ 50 mls/hr IV ONETIME ONE Stop: 04/13/17 11:26 Last Admin: 04/13/17 09:39 Dose: 50 mls/hr Magnesium Sulfate 4 gm/ Premix 100 mls @ 50 mls/hr IV ONETIME ONE Stop: 04/13/17 13:29 Last Admin: 04/13/17 11:37 Dose: 50 mls/hr Magnesium Sulfate 4 gm/ Premix 100 mls @ 50 mls/hr IV ONETIME ONE Stop: 04/14/17 10:04 Last Admin: 04/14/17 08:17 Dose: 50 mls/hr Insulin Aspart (Novolog) 0 unit SUBCUT Q6H [facility] PRN Reason: Protocol Last Admin: 04/12/17 06:55 Dose: Not Given Iopamidol (Isovue-370 (76%)) 100 ml IV ONETIME STA Stop: 04/14/17 16:47 Last Admin: 04/14/17 16:47 Dose: 100 ml Ketamine HCl (Ketalar) Confirm Administered Dose 500 mg .ROUTE .STK-MED ONE Stop: 04/10/17 17:22 Lidocaine (Xylocaine-Mpf 2%) Confirm Administered Dose 5 ml .ROUTE .STK-MED ONE Stop: 04/10/17 17:22 Lorazepam (Ativan) 1 mg IVPUSH ONETIME ONE Stop: 04/11/17 22:19 Last Admin: 04/11/17 22:26 Dose: 1 mg Metoprolol Succinate (Toprol Xl) 50 mg PO DAILY [facility] Last Admin: 04/13/17 08:00 Dose: 50 mg Metoprolol Succinate (Toprol Xl) 50 mg PO ONETIME ONE Stop: 04/13/17 09:12 Last Admin: 04/13/17 09:38 Dose: 50 mg Midazolam HCl (Versed 1 Mg/Ml) Confirm Administered Dose 2 mg .ROUTE .STK-MED ONE Stop: 04/10/17 17:22 Ondansetron HCl (Zofran) 4 mg IVPUSH Q4H PRN PRN Reason: Nausea Ondansetron HCl (Zofran) Confirm Administered Dose 4 mg .ROUTE .STK-MED ONE Stop: 04/10/17 17:22 Phenylephrine HCl (Phenylephrine In Ns 100 Mcg/Ml) Confirm Administered Dose 1 mg .ROUTE .STK-MED ONE Stop: 04/10/17 18:15 Potassium Chloride (Klor-Con M20) 40 meq PO ONETIME ONE Stop: 04/14/17 08:05 Last Admin: 04/14/17 08:17 Dose: 40 meq Rocuronium [place] (Zemuron) Confirm Administered Dose 100 mg .ROUTE .STK-MED ONE Stop: 04/10/17 17:22 Succinylcholine Chloride (Succinylcholine In Ns Pf) Confirm Administered Dose 200 mg .ROUTE .STK-MED ONE Stop: 04/10/17 17:22 - Exam Wound/Incisions: Healing Well, Dressing Dry and Intact, No Drainage (JADON drain removed. Drainage serous only.) General: Alert, Oriented, Cooperative, No Acute Distress HEENT: Pupils Equal, Pupils Reactive Neck: Supple Lungs: Clear to Auscultation, Normal Respiratory Effort Cardiovascular: Regular Rate, Regular Rhythm GI/Abdominal Exam: Normal Bowel Sounds, Soft, Non-Tender, No Distention, No Mass. No: Guarding, Rigid, Rebound Extremities: Normal Inspection Skin: Warm, Dry, Intact Neurological: No New Focal Deficit Psy/Mental Status: Alert, Normal Affect, Normal Mood - Problem List & Annotations (1) Acute appendicitis with rupture SNOMED Code(s): 02061163 Code(s): K35.2 - ACUTE APPENDICITIS WITH GENERALIZED PERITONITIS Status: Acute Priority: High Current Visit: Yes (2) Acute kidney injury (nontraumatic) SNOMED Code(s): 17176037 Code(s): N17.9 - ACUTE KIDNEY FAILURE, UNSPECIFIED Status: Acute Priority : High Current Visit: Yes (3) Diabetes 1.5, managed as type 2 SNOMED Code(s): 400816548 Code(s): E10.9 - TYPE 1 DIABETES MELLITUS WITHOUT COMPLICATIONS Status: Acute Priority: High Current Visit: Yes (4) Coronary artery disease SNOMED Code(s): 27272155 Code(s): I25.10 - ATHSCL HEART DISEASE OF [place] CORONARY ARTERY W/O ANG PCTRS Status: Acute Priority: Medium Current Visit: Yes (5) Myocardial infarction, 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 SNOMED Code(s): 5966618 Code(s): I25.2 - OLD MYOCARDIAL INFARCTION Status: Acute Priority: Medium Current Visit: Yes - Problem List Review Problem List Initiated/Reviewed/Updated: Yes - My Orders Last 24 Hours: Active Orders 24 hr Category Date Time Status Notify Provider Consults [RC] ASDIRECTED Care 04/14/17 09:17 Active Remove Guerra Catheter [Urinary Catheter Removal] [RC] Care 04/14/17 10:14 Active Per Unit Routine [employer] Diet [DIET] Diet 04/14/17 Lunch Active CTA Chest W WO Contrast [Ang Chest] [CT] Routine Exams 04/14/17 15:38 Taken Echo Comp wo Cont [US] Routine Exams 04/14/17 09:40 Taken CBC WITH AUTO DIFF [HEME] DAILY Lab 04/16/17 05:10 Ordered COMPREHENSIVE METABOLIC PN,CMP [CHEM] DAILY Lab 04/16/17 05:10 Ordered MAGNESIUM [CHEM] DAILY Lab 04/16/17 05:10 Ordered aPTT [PTT,PARTIAL THROMBOPLSTIN TIME] [COAG] Q Lab 04/15/17 13:00 Ordered aPTT [PTT,PARTIAL THROMBOPLSTIN TIME] [COAG] Q Lab 04/15/17 19:00 Ordered aPTT [PTT,PARTIAL THROMBOPLSTIN TIME] [COAG] Q Lab 04/16/17 01:00 Ordered aPTT [PTT,PARTIAL THROMBOPLSTIN TIME] [COAG] Q Lab 04/16/17 07:00 Ordered aPTT [PTT,PARTIAL THROMBOPLSTIN TIME] [COAG] Q Lab 04/16/17 13:00 Ordered aPTT [PTT,PARTIAL THROMBOPLSTIN TIME] [COAG] Q Lab 04/16/17 19:00 Ordered aPTT [PTT,PARTIAL THROMBOPLSTIN TIME] [COAG] Q Lab 04/17/17 01:00 Ordered aPTT [PTT,PARTIAL THROMBOPLSTIN TIME] [COAG] Q Lab 04/17/17 07:00 Ordered aPTT [PTT,PARTIAL THROMBOPLSTIN TIME] [COAG] Q Lab 04/17/17 13:00 Ordered aPTT [PTT,PARTIAL THROMBOPLSTIN TIME] [COAG] Q Lab 04/17/17 19:00 Ordered aPTT [PTT,PARTIAL THROMBOPLSTIN TIME] [COAG] Q6H Lab 04/18/17 01:00 Ordered aPTT [PTT,PARTIAL THROMBOPLSTIN TIME] [COAG] Q6H Lab 04/18/17 07:00 Ordered aPTT [PTT,PARTIAL THROMBOPLSTIN TIME] [COAG] Q6H Lab 04/18/17 13:00 Ordered aPTT [PTT,PARTIAL THROMBOPLSTIN TIME] [COAG] Q6H Lab 04/18/17 19:00 Ordered aPTT [PTT,PARTIAL THROMBOPLSTIN TIME] [COAG] Q6 Lab 04/19/17 01:00 Ordered aPTT [PTT,PARTIAL THROMBOPLSTIN TIME] [COAG] Q6H Lab 04/19/17 07:00 Ordered aPTT [PTT,PARTIAL THROMBOPLSTIN TIME] [COAG] Q6 Lab 04/19/17 13:00 Ordered aPTT [PTT,PARTIAL THROMBOPLSTIN TIME] [COAG] Q6 Lab 04/19/17 19:00 Ordered Diltiazem [Cardizem CD] Med 04/14/17 23:00 Active 360 mg PO Q24H Heparin Sod,Pork In 0.45% Nacl [Heparin-1/2Ns 25,000 Med 04/14/17 19:00 Active Units/500] 25,000 unit in 500 ml IV TITRATE Heparin Sodium Med 04/14/17 18:55 Active See Protocol IVPUSH ASDIRECTED PRN Arterial Line Discontinue [OM.PC] Routine Oth 04/14/17 09:54 Ordered Medication Orders Diltiazem HCl (Diltiazem) 0 mg IVPUSH Q1H PRN; Protocol PRN Reason: Arrhythmia Last Admin: 04/12/17 13:04 Dose: 5 mg Diltiazem HCl (Cardizem Cd) 360 mg PO Q24H NORM Last Admin: 04/14/17 22:52 Dose: 360 mg Famotidine (Pepcid) 20 mg IVPUSH BID NORM Last Admin: 04/14/17 20:14 Dose: 20 mg Admin: 04/14/17 08:00 Dose: 20 mg Admin: 04/13/17 20:00 Dose: 20 mg Admin: 04/13/17 08:00 Dose: 20 mg Admin: 04/12/17 20:01 Dose: 20 mg Admin: 04/12/17 08:32 Dose: 20 mg Heparin Sodium (Porcine) (Heparin Sodium) 0 units IVPUSH ASDIRECTED PRN; Protocol PRN Reason: see heparin protocol Last Admin: 04/15/17 02:19 Dose: 1,500 units Admin: 04/14/17 20:02 Dose: 5,000 units Levofloxacin/Dextrose 750 mg/ (Premix) 150 mls @ 100 mls/hr IV Q24H [facility] Last Admin: 04/14/17 13:44 Dose: 100 mls/hr Infusion: 04/13/17 15:17 Dose: 100 mls/hr Admin: 04/13/17 13:47 Dose: 100 mls/hr Infusion: 04/12/17 15:06 Dose: 100 mls/hr Admin: 04/12/17 13:36 Dose: 100 mls/hr Admin: 04/11/17 14:50 Dose: Infusion: 04/10/17 17:10 Dose: 100 mls/hr Admin: 04/10/17 15:40 Dose: 100 mls/hr Metronidazole 500 mg/ Premix 100 mls @ 100 mls/hr IV Q8H [facility] Last Admin: 04/15/17 01:24 Dose: 100 mls/hr Infusion: 04/14/17 18:19 Dose: 100 mls/hr Admin: 04/14/17 17:19 Dose: 100 mls/hr Infusion: 04/14/17 10:39 Dose: 100 mls/hr Admin: 04/14/17 09:39 Dose: 100 mls/hr Infusion: 04/14/17 03:03 Dose: 100 mls/hr Admin: 04/14/17 02:03 Dose: 100 mls/hr Infusion: 04/13/17 17:30 Dose: 100 mls/hr Admin: 04/13/17 16:30 Dose: 100 mls/hr Infusion: 04/13/17 09:49 Dose: 100 mls/hr Admin: 04/13/17 08:49 Dose: 100 mls/hr Infusion: 04/13/17 01:37 Dose: 100 mls/hr Admin: 04/13/17 00:37 Dose: 100 mls/hr Infusion: 04/12/17 19:09 Dose: 100 mls/hr Admin: 04/12/17 18:09 Dose: 100 mls/hr Infusion: 04/12/17 09:32 Dose: 100 mls/hr Admin: 04/12/17 08:32 Dose: 100 mls/hr Infusion: 04/12/17 01:34 Dose: 100 mls/hr Admin: 04/12/17 00:34 Dose: 100 mls/hr Infusion: 04/11/17 18:55 Dose: 100 mls/hr Admin: 04/11/17 17:55 Dose: 100 mls/hr Admin: 04/11/17 14:49 Dose: Infusion: 04/11/17 01:58 Dose: 100 mls/hr Admin: 04/11/17 00:58 Dose: 100 mls/hr Infusion: 04/10/17 18:09 Dose: 100 mls/hr Admin: 04/10/17 17:09 Dose: 100 mls/hr Diltiazem HCl 100 mg/ Sodium (Chloride) 100 mls @ 5 mls/hr IV TITRATE NORM; 5 MG /HR PRN Reason: Protocol Last Titration: 04/13/17 02:05 Dose: 5 mg/hr, 5 mls/hr Titration: 04/13/17 01:06 Dose: 10 mg/hr, 10 mls/hr Admin: 04/12/17 19:42 Dose: 15 mg/hr, 15 mls/hr Titration: 04/12/17 19:41 Dose: 15 mg/hr, 15 mls/hr Admin: 04/12/17 13:00 Dose: 15 mg/hr, 15 mls/hr Titration: 04/12/17 13:00 Dose: 15 mg/hr, 15 mls/hr Titration: 04/12/17 12:00 Dose: 15 mg/hr, 15 mls/hr Titration: 04/12/17 11:05 Dose: 10 mg/hr, 10 mls/hr Titration: 04/12/17 08:58 Dose: 15 mg/hr, 15 mls/hr Titration: 04/12/17 08:31 Dose: 10 mg/hr, 10 mls/hr Titration: 04/12/17 05:15 Dose: 5 mg/hr, 5 mls/hr Admin: 04/12/17 03:48 Dose: 10 mg/hr, 10 mls/hr Titration: 04/12/17 03:48 Dose: 15 mg/hr, 15 mls/hr Titration: 04/11/17 22:35 Dose: 15 mg/hr, 15 mls/hr Titration: 04/11/17 22:15 Dose: 10 mg/hr, 10 mls/hr Admin: 04/11/17 21:41 Dose: 5 mg/hr, 5 mls/hr Heparin Sod,Pork In 0.45% Nacl (Heparin-1/2ns 25,000 Units/500) 25,000 unit in 500 mls @ 26 mls/hr IV TITRATE [facility] PRN Reason: Protocol Last Titration: 04/15/17 09:48 Dose: 13.01 units/kg/hr, 30.704 mls/hr Titration: 04/15/17 07:00 Dose: 0 units/kg/hr, 0 mls/hr Titration: 04/15/17 02:20 Dose: 13.01 units/kg/hr, 30.704 mls/hr Admin: 04/14/17 20:06 Dose: 11.01 units/kg/hr, 26 mls/hr Insulin Aspart (Novolog) 0 unit SUBCUT TIDAC [facility] PRN Reason: Protocol Last Admin: 04/15/17 07:58 Dose: Not Given Admin: 04/14/17 17:29 Dose: Not Given Admin: 04/14/17 11:27 Dose: Not Given Admin: 04/14/17 06:39 Dose: Not Given Admin: 04/13/17 16:29 Dose: Not Given Admin: 04/13/17 10:58 Dose: 2 units Admin: 04/13/17 06:34 Dose: Not Given Admin: 04/12/17 17:29 Dose: Not Given Admin: 04/12/17 12:57 Dose: Not Given Metoclopramide HCl (Reglan) 10 mg IVPUSH Q6H [facility] Last Admin: 04/15/17 01:23 Dose: 10 mg Admin: 04/14/17 20:03 Dose: 10 mg Admin: 04/14/17 13:44 Dose: 10 mg Admin: 04/14/17 07:54 Dose: 10 mg Admin: 04/14/17 02:04 Dose: 10 mg Admin: 04/13/17 19:59 Dose: 10 mg Admin: 04/13/17 13:48 Dose: 10 mg Admin: 04/13/17 07:59 Dose: 10 mg Admin: 04/13/17 03:00 Dose: 10 mg Admin: 04/12/17 19:46 Dose: 10 mg Admin: 04/12/17 13:36 Dose: 10 mg Admin: 04/12/17 08:32 Dose: 10 mg Admin: 04/12/17 03:03 Dose: 10 mg Admin: 04/11/17 21:05 Dose: 10 mg Admin: 04/11/17 14:49 Dose: Admin: 04/11/17 14:49 Dose: Admin: 04/11/17 02:34 Dose: 10 mg Admin: 04/10/17 22:33 Dose: 10 mg Metoprolol Succinate (Toprol Xl) 100 mg PO DAILY NORM Last Admin: 04/14/17 08:01 Dose: 100 mg Morphine Sulfate (Morphine) 2 mg IVPUSH Q2H PRN PRN Reason: Pain Last Admin: 04/11/17 21:32 Dose: 2 mg Admin: 04/11/17 01:22 Dose: 2 mg Admin: 04/10/17 23:06 Dose: 2 mg Morphine Sulfate (Morphine) 0 mg IVPUSH Q1H PRN PRN Reason: Pain (severe 7-10) Ondansetron HCl (Zofran) 4 mg IVPUSH Q6H PRN PRN Reason: Nausea/Vomiting - Assessment Assessment (Free Text/Narrative):: Clinically patient is doing well and continues to improve. Chest CT last night however revealed a left lower lobe pulmonary embolus which will require manager terminal anticoagulation. Started on Heparin last night and held this morning so JADON could safely be removed. JADON removed without incident. Surgically the patient is continuing to show progress. Medically, patient still has cardiac issues and new problem of a PE. - Plan Plan (Free Text/Narrative):: JADON removed without incident. Okay to resume anticoagulation and convert to po meds as appropriate. [place] need to stay in until 04/20. Activity and diet can be increased per Dr. Hernandes.
--- NOTE | 2017-04-15 10:24 | PCM.PN ---
- General Info Admission Dx/Problem (Free Text): Admission Diagnosis/Problem Admission Diagnosis/Problem Abdominal pain Subjective Update: CTA chest revealed Left Lower Lobe PE. Patient remains asymptomatic and denies chest pain, palpitations or sob. His rhythm is currently sinus with rate 80- 100. He states he feels significantly better today compared to yesterday and has been ambulating. He is passing gas and having bm's. Denies any abdominal pain. Functional Status: Reports: Pain Controlled, Tolerating Diet, Ambulating, Urinating - Review of Systems General: Reports: No Symptoms HEENT: Reports: No Symptoms Pulmonary: Reports: No Symptoms Cardiovascular: Reports: No Symptoms Gastrointestinal: Reports: No Symptoms Genitourinary: Reports: No Symptoms Musculoskeletal: Reports: No Symptoms Skin: Reports: No Symptoms Neurological: Reports: No Symptoms Psychiatric: Reports: No Symptoms - Patient Data Vitals - Most Recent: Last Vital Signs Temp 36.3 C 04/15/17 09:10 Pulse 84 04/15/17 09:10 Resp 21 H 04/15/17 09:10 BP 155/98 H 04/15/17 09:10 Pulse Ox 93 L 04/15/17 09:10 Weight - Most Recent: 116 kg I&O - Last 24 Hours: Intake & Output 04/14/17 04/15/17 04/15/17 22:59 06:59 14:59 Intake Total 550 200 Output Total 385 1126 Balance 165 -926 Lab Results Last 24 Hours: Laboratory Results - last 24 hr 04/14/17 04/14/17 04/14/17 Range/Units 06:36 11:07 11:25 WBC (4.0-11.0) K/uL RBC (4.50-5.90) M/uL Hgb (13.0-17.0) g/dL Hct (38.0-50.0) % MCV (80.0-98.0) fL MCH (27.0-32.0) pg MCHC (31.0-37.0) g/dL RDW Std Deviation (28.0-62.0) fl RDW Coeff of Aureliano (11.0-15.0) % Plt Count (150-400) K/uL MPV (7.40-12.00) fL Add Manual Diff Neutrophils % (Manual) (48.0-80.0) % Band Neutrophils % % Lymphocytes % (Manual) (16.0-40.0) % Monocytes % (Manual) (0.0-15.0) % Basophils % (Manual) (0.0-1.5) % Nucleated RBC % /100WBC Absolute Seg Neuts (1.4-5.7) Band Neutrophils # Lymphocytes # (Manual) (0.6-2.4) Monocytes # (Manual) (0.0-0.8) Basophils # (Manual) (0.0-0.1) Nucleated RBCs # K/uL APTT (18.6-31.3) SEC Sodium (136-146) mmol/L Potassium (3.5-5.1) mmol/L Chloride (98-110) mmol/L Carbon Dioxide (21-31) mmol/L BUN (6.0-23.0) mg/dL Creatinine (0.6-1.5) mg/dL Est Cr Clr Drug Dosing mL/min Estimated GFR (MDRD) ml/min Glucose (60-110) mg/dL POC Glucose 118 H 126 H (60-110) mg/dL Calcium (8.8-10.8) mg/dL Magnesium 2.2 (1.5-2.3) mEq/L Total Bilirubin (0.1-1.5) mg/dL AST (5-40) IU/L ALT (8-54) IU/L Alkaline Phosphatase (40-150) Total Protein (6.0-8.0) g/dL Albumin (3.5-5.0) g/dL Globulin (2.0-3.5) g/dL Albumin/Globulin Ratio (1.3-2.8) 04/14/17 04/14/17 04/15/17 Range/Units 17:27 18:53 01:20 WBC (4.0-11.0) K/uL RBC (4.50-5.90) M/uL Hgb (13.0-17.0) g/dL Hct (38.0-50.0) % MCV (80.0-98.0) fL MCH (27.0-32.0) pg MCHC (31.0-37.0) g/dL RDW Std Deviation (28.0-62.0) fl RDW Coeff of Aureliano (11.0-15.0) % Plt Count (150-400) K/uL MPV (7.40-12.00) fL Add Manual Diff Neutrophils % (Manual) (48.0-80.0) % Band Neutrophils % % Lymphocytes % (Manual) (16.0-40.0) % Monocytes % (Manual) (0.0-15.0) % Basophils % (Manual) (0.0-1.5) % Nucleated RBC % /100WBC Absolute Seg Neuts (1.4-5.7) Band Neutrophils # Lymphocytes # (Manual) (0.6-2.4) Monocytes # (Manual) (0.0-0.8) Basophils # (Manual) (0.0-0.1) Nucleated RBCs # K/uL APTT 28.0 35.5 H (18.6-31.3) SEC Sodium (136-146) mmol/L Potassium (3.5-5.1) mmol/L Chloride (98-110) mmol/L Carbon Dioxide (21-31) mmol/L BUN (6.0-23.0) mg/dL Creatinine (0.6-1.5) mg/dL Est Cr Clr Drug Dosing mL/min Estimated GFR (MDRD) ml/min Glucose (60-110) mg/dL POC Glucose 128 H (60-110) mg/dL Calcium (8.8-10.8) mg/dL Magnesium (1.5-2.3) mEq/L Total Bilirubin (0.1-1.5) mg/dL AST (5-40) IU/L ALT (8-54) IU/L Alkaline Phosphatase (40-150) Total Protein (6.0-8.0) g/dL Albumin (3.5-5.0) g/dL Globulin (2.0-3.5) g/dL Albumin/Globulin Ratio (1.3-2.8) 04/15/17 04/15/17 04/15/17 Range/Units 06:54 06:54 06:54 WBC 11.53 H (4.0-11.0) K/uL RBC 4.94 (4.50-5.90) M/uL Hgb 13.1 (13.0-17.0) g/dL Hct 40.9 (38.0-50.0) % MCV 82.8 (80.0-98.0) fL MCH 26.5 L (27.0-32.0) pg MCHC 32.0 (31.0-37.0) g/dL RDW Std Deviation 44.4 (28.0-62.0) fl RDW Coeff of Aureliano 15 (11.0-15.0) % Plt Count 212 (150-400) K/uL MPV 9.20 (7.40-12.00) fL Add Manual Diff YES Neutrophils % (Manual) 80 (48.0-80.0) % Band Neutrophils % 3 % Lymphocytes % (Manual) 11 L (16.0-40.0) % Monocytes % (Manual) 5 (0.0-15.0) % Basophils % (Manual) 1 (0.0-1.5) % Nucleated RBC % 0.0 /100WBC Absolute Seg Neuts 9.2 H (1.4-5.7) Band Neutrophils # 0.3 Lymphocytes # (Manual) 1.3 (0.6-2.4) Monocytes # (Manual) 0.6 (0.0-0.8) Basophils # (Manual) 0.1 (0.0-0.1) Nucleated RBCs # 0 K/uL APTT 35.9 H (18.6-31.3) SEC Sodium 139 (136-146) mmol/L Potassium 3.5 (3.5-5.1) mmol/L Chloride 106 (98-110) mmol/L Carbon Dioxide 25 (21-31) mmol/L BUN 16 (6.0-23.0) mg/dL Creatinine 0.8 (0.6-1.5) mg/dL Est Cr Clr Drug Dosing 111.98 mL/min Estimated GFR (MDRD) > 60.0 ml/min Glucose 130 H (60-110) mg/dL POC Glucose (60-110) mg/dL Calcium 9.1 (8.8-10.8) mg/dL Magnesium 1.3 L (1.5-2.3) mEq/L Total Bilirubin 0.3 (0.1-1.5) mg/dL AST 13 (5-40) IU/L ALT 15 (8-54) IU/L Alkaline Phosphatase 53 (40-150) Total Protein 6.1 (6.0-8.0) g/dL Albumin 2.8 L (3.5-5.0) g/dL Globulin 3.3 (2.0-3.5) g/dL Albumin/Globulin Ratio 0.9 L (1.3-2.8) 04/15/17 Range/Units 07:02 WBC (4.0-11.0) K/uL RBC (4.50-5.90) M/uL Hgb (13.0-17.0) g/dL Hct (38.0-50.0) % MCV (80.0-98.0) fL MCH (27.0-32.0) pg MCHC (31.0-37.0) g/dL RDW Std Deviation (28.0-62.0) fl RDW Coeff of Aureliano (11.0-15.0) % Plt Count (150-400) K/uL MPV (7.40-12.00) fL Add Manual Diff Neutrophils % (Manual) (48.0-80.0) % Band Neutrophils % % Lymphocytes % (Manual) (16.0-40.0) % Monocytes % (Manual) (0.0-15.0) % Basophils % (Manual) (0.0-1.5) % Nucleated RBC % /100WBC Absolute Seg Neuts (1.4-5.7) Band Neutrophils # Lymphocytes # (Manual) (0.6-2.4) Monocytes # (Manual) (0.0-0.8) Basophils # (Manual) (0.0-0.1) Nucleated RBCs # K/uL APTT (18.6-31.3) SEC Sodium (136-146) mmol/L Potassium (3.5-5.1) mmol/L Chloride (98-110) mmol/L Carbon Dioxide (21-31) mmol/L BUN (6.0-23.0) mg/dL Creatinine (0.6-1.5) mg/dL Est Cr Clr Drug Dosing mL/min Estimated GFR (MDRD) ml/min Glucose (60-110) mg/dL POC Glucose 108 (60-110) mg/dL Calcium (8.8-10.8) mg/dL Magnesium (1.5-2.3) mEq/L Total Bilirubin (0.1-1.5) mg/dL AST (5-40) IU/L ALT (8-54) IU/L Alkaline Phosphatase (40-150) Total Protein (6.0-8.0) g/dL Albumin (3.5-5.0) g/dL Globulin (2.0-3.5) g/dL Albumin/Globulin Ratio (1.3-2.8) [place] Results Last 24 Hours: Microbiology 04/10/17 14:30 Aerobic Blood Culture - Preliminary Blood - Venous - Lab Draw NO GROWTH AFTER 4 DAYS Anaerobic Blood Culture - Preliminary NO GROWTH AFTER 4 DAYS 04/10/17 14:20 Aerobic Blood Culture - Preliminary Blood - Venous NO GROWTH AFTER 4 DAYS Anaerobic Blood Culture - Preliminary NO GROWTH AFTER 4 DAYS Med Orders - Current: Current Medications Diltiazem HCl (Diltiazem) 0 mg IVPUSH Q1H PRN; Protocol PRN Reason: Arrhythmia Last Admin: 04/12/17 13:04 Dose: 5 mg Diltiazem HCl (Cardizem Cd) 360 mg PO Q24H NORM Last Admin: 04/14/17 22:52 Dose: 360 mg Famotidine (Pepcid) 20 mg IVPUSH BID NORM Last Admin: 04/14/17 20:14 Dose: 20 mg Heparin Sodium (Porcine) (Heparin Sodium) 0 units IVPUSH ASDIRECTED PRN; Protocol PRN Reason: see heparin protocol Last Admin: 04/15/17 02:19 Dose: 1,500 units Levofloxacin/Dextrose 750 mg/ (Premix) 150 mls @ 100 mls/hr IV Q24H NORM Last Admin: 04/14/17 13:44 Dose: 100 mls/hr Metronidazole 500 mg/ Premix 100 mls @ 100 mls/hr IV Q8H NORM Last Admin: 04/15/17 01:24 Dose: 100 mls/hr Diltiazem HCl 100 mg/ Sodium (Chloride) 100 mls @ 5 mls/hr IV TITRATE NORM; 5 MG /HR PRN Reason: Protocol Last Titration: 04/13/17 02:05 Dose: 5 mg/hr, 5 mls/hr Heparin Sod,Pork In 0.45% Nacl (Heparin-1/2ns 25,000 Units/500) 25,000 unit in 500 mls @ 26 mls/hr IV TITRATE NORM PRN Reason: Protocol Last Titration: 04/15/17 09:48 Dose: 13.01 units/kg/hr, 30.704 mls/hr Insulin Aspart (Novolog) 0 unit SUBCUT TIDAC [facility] PRN Reason: Protocol Last Admin: 04/15/17 07:58 Dose: Not Given Metoclopramide HCl (Reglan) 10 mg IVPUSH Q6H [facility] Last Admin: 04/15/17 01:23 Dose: 10 mg Metoprolol Succinate (Toprol Xl) 100 mg PO DAILY [facility] Last Admin: 04/14/17 08:01 Dose: 100 mg Morphine Sulfate (Morphine) 2 mg IVPUSH Q2H PRN PRN Reason: Pain Last Admin: 04/11/17 21:32 Dose: 2 mg Morphine Sulfate (Morphine) 0 mg IVPUSH Q1H PRN PRN Reason: Pain (severe 7-10) Ondansetron HCl (Zofran) 4 mg IVPUSH Q6H PRN PRN Reason: Nausea/Vomiting Discontinued Medications Bupivacaine HCl (Marcaine 0.5%) Confirm Administered Dose 30 ml .ROUTE .STK-MED ONE Stop: 04/10/17 17:34 Cefazolin Sodium (Ancef) Confirm Administered Dose 1 gm .ROUTE .STK-MED ONE Stop: 04/10/17 17:34 Digoxin (Lanoxin) 250 mcg IVPUSH ONETIME ONE Stop: 04/11/17 15:00 Last Admin: 04/11/17 19:41 Dose: Not Given Digoxin (Lanoxin) Confirm Administered Dose 500 mcg .ROUTE .STK-MED ONE Stop: 04/11/17 15:26 Last Admin: 04/11/17 19:41 Dose: Not Given Digoxin (Lanoxin) 250 mcg IVPUSH ONETIME ONE Stop: 04/11/17 18:39 Last Admin: 04/11/17 19:45 Dose: 250 mcg Diltiazem HCl (Diltiazem) 20 mg IVPUSH ONETIME ONE Stop: 04/11/17 20:50 Last Admin: 04/11/17 21:05 Dose: 20 mg Diltiazem HCl (Diltiazem) 20 mg IVPUSH ONETIME ONE Stop: 04/11/17 22:20 Last Admin: 04/11/17 22:36 Dose: 20 mg Diltiazem HCl (Diltiazem) Confirm Administered Dose 25 mg .ROUTE .STK-MED ONE Stop: 04/11/17 22:36 Last Admin: 04/11/17 22:42 Dose: Not Given Diltiazem HCl (Diltiazem) Confirm Administered Dose 25 mg .ROUTE .STK-MED ONE Stop: 04/12/17 09:02 Last Admin: 04/12/17 09:07 Dose: 5 mg Diltiazem HCl (Cardizem) 30 mg PO Q6HR [facility] Last Admin: 04/13/17 17:44 Dose: 30 mg Diltiazem HCl (Cardizem) 30 mg PO ONETIME ONE Stop: 04/13/17 18:50 Last Admin: 04/13/17 18:55 Dose: 30 mg Diltiazem HCl (Cardizem) 60 mg PO Q6HR [facility] Last Admin: 04/14/17 07:29 Dose: 60 mg Diltiazem HCl (Cardizem) 30 mg PO ONETIME ONE Stop: 04/14/17 08:44 Last Admin: 04/14/17 08:49 Dose: 30 mg Diltiazem HCl (Cardizem) 90 mg PO Q6HR NORM Stop: 04/14/17 18:00 Last Admin: 04/14/17 17:19 Dose: 90 mg Etomidate (Amidate) Confirm Administered Dose 40 mg IVPUSH .STK-MED ONE Stop: 04/10/17 17:22 Fentanyl (Sublimaze) Confirm Administered Dose 250 mcg .ROUTE .STK-MED ONE Stop: 04/10/17 17:22 Heparin Sodium (Porcine) (Heparin Sodium) Confirm Administered Dose 5,000 units .ROUTE .STK-MED ONE Stop: 04/11/17 12:51 Last Admin: 04/11/17 19:41 Dose: Not Given Heparin Sodium (Porcine) (Heparin Sodium) 5,000 units SUBCUT Q8H [facility] Last Admin: 04/14/17 13:44 Dose: 5,000 units Metronidazole 500 mg/ Premix 100 mls @ 100 mls/hr IV Q8H [facility] Last Admin: 04/10/17 17:47 Dose: Not Given Sodium Chloride (Normal Saline) 500 mls @ 1,000 mls/hr IV .BOLUS [facility] Last Admin: 04/10/17 15:45 Dose: 1,000 mls/hr Sodium Chloride (Normal Saline) 1,000 mls @ 125 mls/hr IV ASDIRECTED [facility] Last Admin: 04/10/17 22:48 Dose: 150 mls/hr Dopamine HCl/Dextrose (Dopamine In D5w 400 Mg/250 Ml) 400 mg in 250 mls @ 8.67 mls/hr IV TITRATE NORM; 2 MCG/KG/MIN PRN Reason: Protocol Norepinephrine Bitartrate (Norepinephr-0.9% Nacl 4 Mg/250) 4 mg in 250 mls @ 7.5 mls/hr IV TITRATE NORM; 2 MCG/MIN PRN Reason: Protocol Last Titration: 04/11/17 04:39 Dose: 3 mcg/min, 11.25 mls/hr Vasopressin 100 units/ Sodium (Chloride) 100 mls @ 0 mls/hr IV TITRATE NORM; Per Protocol PRN Reason: Protocol Last Titration: 04/11/17 20:30 Dose: 0 units/min, 0 mls/hr Sodium Chloride (Normal Saline) Confirm Administered Dose 20 mls @ as directed .ROUTE .STK-MED ONE Stop: 04/10/17 17:24 Sodium Chloride (Normal Saline) 500 mls @ 999 mls/hr IV .BOLUS NORM Last Admin: 04/10/17 18:11 Dose: Not Given Acetaminophen (Ofirmev) Confirm Administered Dose 100 mls @ as directed IV .STK- MED ONE Stop: 04/10/17 19:13 Lactated Ringer's (Ringers, Lactated) 1,000 mls @ 175 mls/hr IV ASDIRECTED NORM Stop: 04/11/17 00:08 Sodium Chloride (Normal Saline) 1,000 mls @ 150 mls/hr IV ASDIRECTED NORM Last Infusion: 04/11/17 23:15 Dose: 75 mls/hr Magnesium Sulfate (Magnesium Sulfate 2 Gm In Water 50 Ml) Confirm Administered Dose 50 mls @ as directed .ROUTE .STK-MED ONE Stop: 04/11/17 12:51 Last Admin: 04/11/17 19:41 Dose: Not Given Sodium Chloride (Normal Saline) Confirm Administered Dose 100 mls @ as directed .ROUTE .STK-MED ONE Stop: 04/11/17 22:26 Last Admin: 04/11/17 22:29 Dose: Not Given Sodium Chloride (Normal Saline) 1,000 mls @ 75 mls/hr IV ASDIRECTED NORM Last Admin: 04/13/17 21:06 Dose: 75 mls/hr Magnesium Sulfate 4 gm/ Premix 100 mls @ 50 mls/hr IV ONETIME ONE Stop: 04/13/17 11:26 Last Admin: 04/13/17 09:39 Dose: 50 mls/hr Magnesium Sulfate 4 gm/ Premix 100 mls @ 50 mls/hr IV ONETIME ONE Stop: 04/13/17 13:29 Last Admin: 04/13/17 11:37 Dose: 50 mls/hr Magnesium Sulfate 4 gm/ Premix 100 mls @ 50 mls/hr IV ONETIME ONE Stop: 04/14/17 10:04 Last Admin: 04/14/17 08:17 Dose: 50 mls/hr Insulin Aspart (Novolog) 0 unit SUBCUT Q6H NORM PRN Reason: Protocol Last Admin: 04/12/17 06:55 Dose: Not Given Iopamidol (Isovue-370 (76%)) 100 ml IV ONETIME STA Stop: 04/14/17 16:47 Last Admin: 04/14/17 16:47 Dose: 100 ml Ketamine HCl (Ketalar) Confirm Administered Dose 500 mg .ROUTE .STK-MED ONE Stop: 04/10/17 17:22 Lidocaine (Xylocaine-Mpf 2%) Confirm Administered Dose 5 ml .ROUTE .STK-MED ONE Stop: 04/10/17 17:22 Lorazepam (Ativan) 1 mg IVPUSH ONETIME ONE Stop: 04/11/17 22:19 Last Admin: 04/11/17 22:26 Dose: 1 mg Metoprolol Succinate (Toprol Xl) 50 mg PO DAILY [facility] Last Admin: 04/13/17 08:00 Dose: 50 mg Metoprolol Succinate (Toprol Xl) 50 mg PO ONETIME ONE Stop: 04/13/17 09:12 Last Admin: 04/13/17 09:38 Dose: 50 mg Midazolam HCl (Versed 1 Mg/Ml) Confirm Administered Dose 2 mg .ROUTE .STK-MED ONE Stop: 04/10/17 17:22 Ondansetron HCl (Zofran) 4 mg IVPUSH Q4H PRN PRN Reason: Nausea Ondansetron HCl (Zofran) Confirm Administered Dose 4 mg .ROUTE .STK-MED ONE Stop: 04/10/17 17:22 Phenylephrine HCl (Phenylephrine In Ns 100 Mcg/Ml) Confirm Administered Dose 1 mg .ROUTE .STK-MED ONE Stop: 04/10/17 18:15 Potassium Chloride (Klor-Con M20) 40 meq PO ONETIME ONE Stop: 04/14/17 08:05 Last Admin: 04/14/17 08:17 Dose: 40 meq Rocuronium [place] (Zemuron) Confirm Administered Dose 100 mg .ROUTE .STK-MED ONE Stop: 04/10/17 17:22 Succinylcholine Chloride (Succinylcholine In Ns Pf) Confirm Administered Dose 200 mg .ROUTE .STK-MED ONE Stop: 04/10/17 17:22 - Exam General: Alert, Oriented HEENT: Pupils Equal, Pupils Reactive, EOMI, Mucous Membr. Moist/[place] Neck: Supple, No JVD Lungs: Clear to Auscultation, Normal Respiratory Effort Cardiovascular: Regular Rate, Regular Rhythm GI/Abdominal Exam: Normal Bowel Sounds, Non-Tender, Distended Extremities: Normal Inspection, No Pedal Edema, Normal Capillary Refill Peripheral Pulses: 2+: Dorsalis Pedis (L), Dorsalis Pedis (R) Skin: Warm, Dry, Intact Neurological: No New Focal Deficit Psy/Mental Status: Alert, Normal Affect, Normal Mood - Problem List Review Problem List Initiated/Reviewed/Updated: Yes - My Orders Last 24 Hours: My Active Orders 04/14/17 09:00 Metoprolol Succinate [Toprol XL] 100 mg PO DAILY 04/14/17 09:16 Consult to Physician [CONS] Routine 04/14/17 09:17 Notify Provider Consults [RC] ASDIRECTED 04/14/17 09:40 Echo Comp wo Cont [US] Routine 04/14/17 09:54 Arterial Line Discontinue [OM.PC] Routine 04/14/17 15:38 CTA Chest W WO Contrast [Ang Chest] [CT] Routine 04/14/17 23:00 Diltiazem [Cardizem CD] 360 mg PO Q24H - Plan Plan:: 56 yo male with history of HTN and DM T2 admitted for diffuse peritonitis s/p exploratory appendectomy and arrythmia. CT revealed PE. Cardio and Surgery consulted and are on board. 1. diffuse peritonitis s/p exploratory appendectomy, secondary to Perforated Appendix -on Levaquin and Metronidazole -patient continues to improve -surgery on board and plan to remove drain today plan: -continue Levaquin & Metronidazole -surgery on board, continue management as per rec's 2. PE -seen on CT chest -patient asymptomatic, stable bp/hr, no hypoxia -cardio consulted and is on board -as per general surgery patient may be started on anticoagulation plan: -start heparin today with plan to discharge on eliquis -continue management as per cardio rec's 3. Arrythmia, likely multifactorial etiology, resolved -fluctuated bw Atrial fibrillation, Atral flutter & Sinus Tachycardia -as per EHR, patient had isolated incident of AF in 2011 that resolved -patient currently back in sinus with hr 80-100 -echo completed, awaiting reading -on Toprol 100 mg QAM and Cardizem CD 360 mg QPM -[id number] score 2 -cardio consulted and is on board Plan: -continue Toprol and Cardizem CD -Target Mg over 2 and K over 4 -continue management as per cardio rec's 4. HTN, controlled -home regimen prior to admission was Toprol 50 mg QD and Ramipril 2.5 mg QD plan: -on Toprol 100 mg QD -Ramipril held to optimize therapy for HR control, will likely resume today if HR remains stable 5. Hypomagnasemia -current Mg 1.2 plan: -Mg 4 mg IV x2 doses -repeat Mg in AM 6. Leukocytosis -likely secondary to #1 plan: -continue to monitor WBC count 7. Septic Shock, secondary to #1 -resolved, off pressors, vitals stable, no fever 8. DM T2 -continue BG monitoring and ISS
[2017-04-15] MEDS ORDERED: Magnesium Sulfate/Water 4 GM in Premix Bag 1 BAG IV ONE (10:30)
[2017-04-15] MEDS: Famotidine 20 MG/2 ML SDV IVPUSH SCH ×2 (10:33→21:48)
[2017-04-15] MEDS: Metoprolol Succinate 100 MG Tab.ER PO SCH (10:34)
[2017-04-15] MEDS: Levofloxacin/Dextrose 5%-Water 750 MG in Premix Bag 1 BAG IV SCH (13:58)
[2017-04-15] MEDS: Heparin Sod,Pork In 0.45% Nacl 25,000 UNIT/500 ML IV.SOLN IV SCH (16:06)
[2017-04-15] MEDS: Diltiazem 180 MG Cap.CD PO SCH (22:47)
[2017-04-16] MEDS: metroNIDAZOLE/Normal Saline 500 MG in Premix Bag 1 BAG IV SCH ×3 (00:39→17:52)
[2017-04-16] MEDS: Metoclopramide 10 MG/2 ML SDV IVPUSH SCH ×4 (01:16→20:15)
[2017-04-16] MEDS: Heparin Sod,Pork In 0.45% Nacl 25,000 UNIT/500 ML IV.SOLN IV SCH (05:24)
[2017-04-16 05:33] LABS: CHLORIDE,CL 104 mmol/L (98-110); SODIUM,NA 137 mmol/L (136-146)
[2017-04-16] MEDS ORDERED: Magnesium Sulfate/Water 4 GM in Premix Bag 1 BAG IV ONE ×2 (07:41→19:00)
--- NOTE | 2017-04-16 08:12 | PCM.PN ---
- Patient Data Vitals - Most Recent: Last Vital Signs Temp 98.1 F 04/16/17 04:00 Pulse 75 04/15/17 17:00 Resp 18 04/16/17 07:00 BP 136/68 04/16/17 07:00 Pulse Ox 92 L 04/16/17 07:00 Weight - Most Recent: 116 kg I&O - Last 24 Hours: Intake & Output 04/15/17 04/16/17 04/16/17 22:59 06:59 14:59 Intake Total 1855 750 Output Total 900 1750 Balance 955 -1000 Lab Results Last 24 Hours: Laboratory Results - last 24 hr 04/15/17 04/15/17 04/15/17 Range/Units 11:47 15:50 16:41 WBC (4.0-11.0) K/uL RBC (4.50-5.90) M/uL Hgb (13.0-17.0) g/dL Hct (38.0-50.0) % MCV (80.0-98.0) fL MCH (27.0-32.0) pg MCHC (31.0-37.0) g/dL RDW Std Deviation (28.0-62.0) fl RDW Coeff of Aureliano (11.0-15.0) % Plt Count (150-400) K/uL MPV (7.40-12.00) fL Add Manual Diff Neutrophils % (Manual) (48.0-80.0) % Band Neutrophils % % Lymphocytes % (Manual) (16.0-40.0) % Monocytes % (Manual) (0.0-15.0) % Eosinophils % (Manual) (0.0-7.0) % Nucleated RBC % /100WBC Absolute Seg Neuts (1.4-5.7) Band Neutrophils # Lymphocytes # (Manual) (0.6-2.4) Monocytes # (Manual) (0.0-0.8) Eosinophils # (Manual) (0.0-0.7) Nucleated RBCs # K/uL APTT 34.4 H (18.6-31.3) SEC Sodium (136-146) mmol/L Potassium (3.5-5.1) mmol/L Chloride (98-110) mmol/L Carbon Dioxide (21-31) mmol/L BUN (6.0-23.0) mg/dL Creatinine (0.6-1.5) mg/dL Est Cr Clr Drug Dosing mL/min Estimated GFR (MDRD) ml/min Glucose (60-110) mg/dL POC Glucose 128 H 133 H (60-110) mg/dL Calcium (8.8-10.8) mg/dL Magnesium (1.5-2.3) mEq/L Total Bilirubin (0.1-1.5) mg/dL AST (5-40) IU/L ALT (8-54) IU/L Alkaline Phosphatase (40-150) Total Protein (6.0-8.0) g/dL Albumin (3.5-5.0) g/dL Globulin (2.0-3.5) g/dL Albumin/Globulin Ratio (1.3-2.8) 04/15/17 04/16/17 04/16/17 Range/Units 22:40 04:59 04:59 WBC 10.39 (4.0-11.0) K/uL RBC 4.83 (4.50-5.90) M/uL Hgb 12.7 L (13.0-17.0) g/dL Hct 39.8 (38.0-50.0) % MCV 82.4 (80.0-98.0) fL MCH 26.3 L (27.0-32.0) pg MCHC 31.9 (31.0-37.0) g/dL RDW Std Deviation 43.7 (28.0-62.0) fl RDW Coeff of Aureliano 15 (11.0-15.0) % Plt Count 203 (150-400) K/uL MPV 8.90 (7.40-12.00) fL Add Manual Diff YES Neutrophils % (Manual) 75 (48.0-80.0) % Band Neutrophils % 3 % Lymphocytes % (Manual) 12 L (16.0-40.0) % Monocytes % (Manual) 7 (0.0-15.0) % Eosinophils % (Manual) 3 (0.0-7.0) % Nucleated RBC % 0.0 /100WBC Absolute Seg Neuts 7.8 H (1.4-5.7) Band Neutrophils # 0.3 Lymphocytes # (Manual) 1.2 (0.6-2.4) Monocytes # (Manual) 0.7 (0.0-0.8) Eosinophils # (Manual) 0.3 (0.0-0.7) Nucleated RBCs # 0 K/uL APTT 44.5 H (18.6-31.3) SEC Sodium 137 (136-146) mmol/L Potassium 3.6 (3.5-5.1) mmol/L Chloride 104 (98-110) mmol/L Carbon Dioxide 25 (21-31) mmol/L BUN 14 (6.0-23.0) mg/dL Creatinine 0.8 (0.6-1.5) mg/dL Est Cr Clr Drug Dosing 111.98 mL/min Estimated GFR (MDRD) > 60.0 ml/min Glucose 152 H (60-110) mg/dL POC Glucose (60-110) mg/dL Calcium 8.9 (8.8-10.8) mg/dL Magnesium 1.3 L (1.5-2.3) mEq/L Total Bilirubin 0.3 (0.1-1.5) mg/dL AST 15 (5-40) IU/L ALT 17 (8-54) IU/L Alkaline Phosphatase 50 (40-150) Total Protein 5.9 L (6.0-8.0) g/dL Albumin 2.8 L (3.5-5.0) g/dL Globulin 3.1 (2.0-3.5) g/dL Albumin/Globulin Ratio 0.9 L (1.3-2.8) 04/16/17 Range/Units 04:59 WBC (4.0-11.0) K/uL RBC (4.50-5.90) M/uL Hgb (13.0-17.0) g/dL Hct (38.0-50.0) % MCV (80.0-98.0) fL MCH (27.0-32.0) pg MCHC (31.0-37.0) g/dL RDW Std Deviation (28.0-62.0) fl RDW Coeff of Aureliano (11.0-15.0) % Plt Count (150-400) K/uL MPV (7.40-12.00) fL Add Manual Diff Neutrophils % (Manual) (48.0-80.0) % Band Neutrophils % % Lymphocytes % (Manual) (16.0-40.0) % Monocytes % (Manual) (0.0-15.0) % Eosinophils % (Manual) (0.0-7.0) % Nucleated RBC % /100WBC Absolute Seg Neuts (1.4-5.7) Band Neutrophils # Lymphocytes # (Manual) (0.6-2.4) Monocytes # (Manual) (0.0-0.8) Eosinophils # (Manual) (0.0-0.7) Nucleated RBCs # K/uL APTT 51.7 H (18.6-31.3) SEC Sodium (136-146) mmol/L Potassium (3.5-5.1) mmol/L Chloride (98-110) mmol/L Carbon Dioxide (21-31) mmol/L BUN (6.0-23.0) mg/dL Creatinine (0.6-1.5) mg/dL Est Cr Clr Drug Dosing mL/min Estimated GFR (MDRD) ml/min Glucose (60-110) mg/dL POC Glucose (60-110) mg/dL Calcium (8.8-10.8) mg/dL Magnesium (1.5-2.3) mEq/L Total Bilirubin (0.1-1.5) mg/dL AST (5-40) IU/L ALT (8-54) IU/L Alkaline Phosphatase (40-150) Total Protein (6.0-8.0) g/dL Albumin (3.5-5.0) g/dL Globulin (2.0-3.5) g/dL Albumin/Globulin Ratio (1.3-2.8) Robinson Results Last 24 Hours: Microbiology 04/10/17 14:30 Aerobic Blood Culture - Final Blood - Venous - Lab Draw NO GROWTH AFTER 5 DAYS Anaerobic Blood Culture - Final NO GROWTH AFTER 5 DAYS 04/10/17 14:20 Aerobic Blood Culture - Final Blood - Venous NO GROWTH AFTER 5 DAYS Anaerobic Blood Culture - Final NO GROWTH AFTER 5 DAYS Med Orders - Current: Current Medications Diltiazem HCl (Diltiazem) 0 mg IVPUSH Q1H PRN; Protocol PRN Reason: Arrhythmia Last Admin: 04/12/17 13:04 Dose: 5 mg Diltiazem HCl (Cardizem Cd) 360 mg PO Q24H NORM Last Admin: 04/15/17 22:47 Dose: 360 mg Famotidine (Pepcid) 20 mg IVPUSH BID [facility] Last Admin: 04/15/17 21:48 Dose: 20 mg Heparin Sodium (Porcine) (Heparin Sodium) 0 units IVPUSH ASDIRECTED PRN; Protocol PRN Reason: see heparin protocol Last Admin: 04/15/17 23:12 Dose: 1,500 units Levofloxacin/Dextrose 750 mg/ (Premix) 150 mls @ 100 mls/hr IV Q24H [facility] Last Admin: 04/15/17 13:58 Dose: 100 mls/hr Metronidazole 500 mg/ Premix 100 mls @ 100 mls/hr IV Q8H [facility] Last Admin: 04/16/17 00:39 Dose: 100 mls/hr Diltiazem HCl 100 mg/ Sodium (Chloride) 100 mls @ 5 mls/hr IV TITRATE NORM; 5 MG /HR PRN Reason: Protocol Last Titration: 04/13/17 02:05 Dose: 5 mg/hr, 5 mls/hr Heparin Sod,Pork In 0.45% Nacl (Heparin-1/2ns 25,000 Units/500) 25,000 unit in 500 mls @ 26 mls/hr IV TITRATE NORM PRN Reason: Protocol Last Admin: 04/16/17 05:24 Dose: 19 units/kg/hr, 44.84 mls/hr Magnesium Sulfate 4 gm/ Premix 100 mls @ 25 mls/hr IV ONETIME ONE Stop: 04/16/17 11:40 Magnesium Sulfate 4 gm/ Premix 100 mls @ 25 mls/hr IV ONETIME ONE Stop: 04/16/17 22:59 Insulin Aspart (Novolog) 0 unit SUBCUT TIDAC [facility] PRN Reason: Protocol Last Admin: 04/15/17 16:44 Dose: Not Given Metoclopramide HCl (Reglan) 10 mg IVPUSH Q6H [facility] Last Admin: 04/16/17 01:16 Dose: 10 mg Metoprolol Succinate (Toprol Xl) 100 mg PO DAILY [facility] Last Admin: 04/15/17 10:34 Dose: 100 mg Morphine Sulfate (Morphine) 2 mg IVPUSH Q2H PRN PRN Reason: Pain Last Admin: 04/11/17 21:32 Dose: 2 mg Morphine Sulfate (Morphine) 0 mg IVPUSH Q1H PRN PRN Reason: Pain (severe 7-10) Ondansetron HCl (Zofran) 4 mg IVPUSH Q6H PRN PRN Reason: Nausea/Vomiting Discontinued Medications Bupivacaine HCl (Marcaine 0.5%) Confirm Administered Dose 30 ml .ROUTE .STK-MED ONE Stop: 04/10/17 17:34 Cefazolin Sodium (Ancef) Confirm Administered Dose 1 gm .ROUTE .STK-MED ONE Stop: 04/10/17 17:34 Digoxin (Lanoxin) 250 mcg IVPUSH ONETIME ONE Stop: 04/11/17 15:00 Last Admin: 04/11/17 19:41 Dose: Not Given Digoxin (Lanoxin) Confirm Administered Dose 500 mcg .ROUTE .STK-MED ONE Stop: 04/11/17 15:26 Last Admin: 04/11/17 19:41 Dose: Not Given Digoxin (Lanoxin) 250 mcg IVPUSH ONETIME ONE Stop: 04/11/17 18:39 Last Admin: 04/11/17 19:45 Dose: 250 mcg Diltiazem HCl (Diltiazem) 20 mg IVPUSH ONETIME ONE Stop: 04/11/17 20:50 Last Admin: 04/11/17 21:05 Dose: 20 mg Diltiazem HCl (Diltiazem) 20 mg IVPUSH ONETIME ONE Stop: 04/11/17 22:20 Last Admin: 04/11/17 22:36 Dose: 20 mg Diltiazem HCl (Diltiazem) Confirm Administered Dose 25 mg .ROUTE .STK-MED ONE Stop: 04/11/17 22:36 Last Admin: 04/11/17 22:42 Dose: Not Given Diltiazem HCl (Diltiazem) Confirm Administered Dose 25 mg .ROUTE .STK-MED ONE Stop: 04/12/17 09:02 Last Admin: 04/12/17 09:07 Dose: 5 mg Diltiazem HCl (Cardizem) 30 mg PO Q6HR [facility] Last Admin: 04/13/17 17:44 Dose: 30 mg Diltiazem HCl (Cardizem) 30 mg PO ONETIME ONE Stop: 04/13/17 18:50 Last Admin: 04/13/17 18:55 Dose: 30 mg Diltiazem HCl (Cardizem) 60 mg PO Q6HR NORM Last Admin: 04/14/17 07:29 Dose: 60 mg Diltiazem HCl (Cardizem) 30 mg PO ONETIME ONE Stop: 04/14/17 08:44 Last Admin: 04/14/17 08:49 Dose: 30 mg Diltiazem HCl (Cardizem) 90 mg PO Q6HR NORM Stop: 04/14/17 18:00 Last Admin: 04/14/17 17:19 Dose: 90 mg Etomidate (Amidate) Confirm Administered Dose 40 mg IVPUSH .STK-MED ONE Stop: 04/10/17 17:22 Fentanyl (Sublimaze) Confirm Administered Dose 250 mcg .ROUTE .STK-MED ONE Stop: 04/10/17 17:22 Heparin Sodium (Porcine) (Heparin Sodium) Confirm Administered Dose 5,000 units .ROUTE .STK-MED ONE Stop: 04/11/17 12:51 Last Admin: 04/11/17 19:41 Dose: Not Given Heparin Sodium (Porcine) (Heparin Sodium) 5,000 units SUBCUT Q8H NORM Last Admin: 04/14/17 13:44 Dose: 5,000 units Metronidazole 500 mg/ Premix 100 mls @ 100 mls/hr IV Q8H NORM Last Admin: 04/10/17 17:47 Dose: Not Given Sodium Chloride (Normal Saline) 500 mls @ 1,000 mls/hr IV .BOLUS NORM Last Admin: 04/10/17 15:45 Dose: 1,000 mls/hr Sodium Chloride (Normal Saline) 1,000 mls @ 125 mls/hr IV ASDIRECTED NORM Last Admin: 04/10/17 22:48 Dose: 150 mls/hr Dopamine HCl/Dextrose (Dopamine In D5w 400 Mg/250 Ml) 400 mg in 250 mls @ 8.67 mls/hr IV TITRATE NORM; 2 MCG/KG/MIN PRN Reason: Protocol Norepinephrine Bitartrate (Norepinephr-0.9% Nacl 4 Mg/250) 4 mg in 250 mls @ 7.5 mls/hr IV TITRATE NORM; 2 MCG/MIN PRN Reason: Protocol Last Titration: 04/11/17 04:39 Dose: 3 mcg/min, 11.25 mls/hr Vasopressin 100 units/ Sodium (Chloride) 100 mls @ 0 mls/hr IV TITRATE NORM; Per Protocol PRN Reason: Protocol Last Titration: 04/11/17 20:30 Dose: 0 units/min, 0 mls/hr Sodium Chloride (Normal Saline) Confirm Administered Dose 20 mls @ as directed .ROUTE .STK-MED ONE Stop: 04/10/17 17:24 Sodium Chloride (Normal Saline) 500 mls @ 999 mls/hr IV .BOLUS NORM Last Admin: 04/10/17 18:11 Dose: Not Given Acetaminophen (Ofirmev) Confirm Administered Dose 100 mls @ as directed IV .STK- MED ONE Stop: 04/10/17 19:13 Lactated Ringer's (Ringers, Lactated) 1,000 mls @ 175 mls/hr IV ASDIRECTED NORM Stop: 04/11/17 00:08 Sodium Chloride (Normal Saline) 1,000 mls @ 150 mls/hr IV ASDIRECTED NORM Last Infusion: 04/11/17 23:15 Dose: 75 mls/hr Magnesium Sulfate (Magnesium Sulfate 2 Gm In Water 50 Ml) Confirm Administered Dose 50 mls @ as directed .ROUTE .STK-MED ONE Stop: 04/11/17 12:51 Last Admin: 04/11/17 19:41 Dose: Not Given Sodium Chloride (Normal Saline) Confirm Administered Dose 100 mls @ as directed .ROUTE .STK-MED ONE Stop: 04/11/17 22:26 Last Admin: 04/11/17 22:29 Dose: Not Given Sodium Chloride (Normal Saline) 1,000 mls @ 75 mls/hr IV ASDIRECTED NORM Last Admin: 04/13/17 21:06 Dose: 75 mls/hr Magnesium Sulfate 4 gm/ Premix 100 mls @ 50 mls/hr IV ONETIME ONE Stop: 04/13/17 11:26 Last Admin: 04/13/17 09:39 Dose: 50 mls/hr Magnesium Sulfate 4 gm/ Premix 100 mls @ 50 mls/hr IV ONETIME ONE Stop: 04/13/17 13:29 Last Admin: 04/13/17 11:37 Dose: 50 mls/hr Magnesium Sulfate 4 gm/ Premix 100 mls @ 50 mls/hr IV ONETIME ONE Stop: 04/14/17 10:04 Last Admin: 04/14/17 08:17 Dose: 50 mls/hr Magnesium Sulfate 4 gm/ Premix 100 mls @ 50 mls/hr IV ONETIME ONE Stop: 04/15/17 12:29 Last Admin: 04/15/17 11:50 Dose: 50 mls/hr Insulin Aspart (Novolog) 0 unit SUBCUT Q6H NORM PRN Reason: Protocol Last Admin: 04/12/17 06:55 Dose: Not Given Iopamidol (Isovue-370 (76%)) 100 ml IV ONETIME STA Stop: 04/14/17 16:47 Last Admin: 04/14/17 16:47 Dose: 100 ml Ketamine HCl (Ketalar) Confirm Administered Dose 500 mg .ROUTE .STK-MED ONE Stop: 04/10/17 17:22 Lidocaine (Xylocaine-Mpf 2%) Confirm Administered Dose 5 ml .ROUTE .STK-MED ONE Stop: 04/10/17 17:22 Lorazepam (Ativan) 1 mg IVPUSH ONETIME ONE Stop: 04/11/17 22:19 Last Admin: 04/11/17 22:26 Dose: 1 mg Metoprolol Succinate (Toprol Xl) 50 mg PO DAILY [facility] Last Admin: 04/13/17 08:00 Dose: 50 mg Metoprolol Succinate (Toprol Xl) 50 mg PO ONETIME ONE Stop: 04/13/17 09:12 Last Admin: 04/13/17 09:38 Dose: 50 mg Midazolam HCl (Versed 1 Mg/Ml) Confirm Administered Dose 2 mg .ROUTE .STK-MED ONE Stop: 04/10/17 17:22 Ondansetron HCl (Zofran) 4 mg IVPUSH Q4H PRN PRN Reason: Nausea Ondansetron HCl (Zofran) Confirm Administered Dose 4 mg .ROUTE .STK-MED ONE Stop: 04/10/17 17:22 Phenylephrine HCl (Phenylephrine In Ns 100 Mcg/Ml) Confirm Administered Dose 1 mg .ROUTE .STK-MED ONE Stop: 04/10/17 18:15 Potassium Chloride (Klor-Con M20) 40 meq PO ONETIME ONE Stop: 04/14/17 08:05 Last Admin: 04/14/17 08:17 Dose: 40 meq Rocuronium [place] (Zemuron) Confirm Administered Dose 100 mg .ROUTE .STK-MED ONE Stop: 04/10/17 17:22 Succinylcholine Chloride (Succinylcholine In Ns Pf) Confirm Administered Dose 200 mg .ROUTE .STK-MED ONE Stop: 04/10/17 17:22 - My Orders Last 24 Hours: My Active Orders 04/16/17 07:41 Magnesium Sulfate/Water [Magnesium Sulfate 4 GM in Water 100 ML] 4 gm Premix Bag 1 bag IV ONETIME 04/16/17 19:00 Magnesium Sulfate/Water [Magnesium Sulfate 4 GM in Water 100 ML] 4 gm Premix Bag 1 bag IV ONETIME - Plan Plan:: 56 yo male with history of HTN and DM T2 admitted for diffuse peritonitis s/p exploratory appendectomy and arrythmia. CT revealed PE. Cardio and Surgery consulted and are on board. 1. diffuse peritonitis s/p exploratory appendectomy, secondary to Perforated Appendix -on Levaquin and Metronidazole -patient continues to improve -surgery on board and plan to remove drain today plan: -continue Levaquin & Metronidazole -surgery on board, continue management as per rec's 2. PE -seen on CT chest -patient asymptomatic, stable bp/hr, no hypoxia -cardio consulted and is on board -as per general surgery patient may be started on anticoagulation plan: -start heparin today with plan to discharge on eliquis -continue management as per cardio rec's 3. Arrythmia, likely multifactorial etiology, resolved -fluctuated bw Atrial fibrillation, Atral flutter & Sinus Tachycardia -as per EHR, patient had isolated incident of AF in 2011 that resolved -patient currently back in sinus with hr 80-100 -echo completed, awaiting reading -on Toprol 100 mg QAM and Cardizem CD 360 mg QPM -[id number] score 2 -cardio consulted and is on board Plan: -continue Toprol and Cardizem CD -Target Mg over 2 and K over 4 -continue management as per cardio rec's 4. HTN, controlled -home regimen prior to admission was Toprol 50 mg QD and Ramipril 2.5 mg QD plan: -on Toprol 100 mg QD -Ramipril held to optimize therapy for HR control, will likely resume today if HR remains stable 5. Hypomagnasemia -current Mg 1.2 plan: -Mg 4 mg IV x2 doses -repeat Mg in AM 6. Leukocytosis -likely secondary to #1 plan: -continue to monitor WBC count 7. Septic Shock, secondary to #1 -resolved, off pressors, vitals stable, no fever 8. DM T2 -continue BG monitoring and ISS
[2017-04-16] MEDS: Insulin Aspart 100 Units/ML 3 ML Pen SUBCUT SCH ×2 (08:25→17:51)
[2017-04-16] MEDS ORDERED: Potassium Chloride 10% 20 MEQ/15 ML Soln 30 ML UD Cup PO ONE (08:34)
[2017-04-16] MEDS: Famotidine 20 MG/2 ML SDV IVPUSH SCH ×2 (09:11→20:15)
[2017-04-16] MEDS: Metoprolol Succinate 100 MG Tab.ER PO SCH (09:11)
[2017-04-16] MEDS: Apixaban 5 MG Tab PO SCH ×2 (10:09→20:15)
--- NOTE | 2017-04-16 10:12 | PCM.PN ---
- General Info Date of Service: 04/16/17 Admission Dx/Problem (Free Text): Admission Diagnosis/Problem Admission Diagnosis/Problem Abdominal pain Subjective Update: Feeling very good this morning. Has been up and walking. Eating and drinking well. Denies any chest pain, palpitations or sob. Would like to have his weekly diabetic shot that he is bringing from home which I feel is fine. Functional Status: Reports: Pain Controlled - Review of Systems General: Reports: Weakness. Denies: Fever, Fatigue, Malaise HEENT: Denies: Headaches, Visual Changes Pulmonary: Denies: Shortness of Breath, Cough, Hemoptysis Cardiovascular: Reports: Edema. Denies: Chest Pain, Palpitations Gastrointestinal: Reports: Abdominal Pain. Denies: Constipation, Diarrhea Genitourinary: Denies: Dysuria, Hematuria Musculoskeletal: Denies: Neck Pain, Leg Pain Skin: Denies: Cyanosis Neurological: Denies: Confusion, Dizziness, Headache Psychiatric: Denies: Confusion - Patient Data Vitals - Most Recent: Last Vital Signs Temp 98.1 F 04/16/17 04:00 Pulse 79 04/16/17 09:11 Resp 18 04/16/17 07:00 BP 138/65 04/16/17 09:11 Pulse Ox 92 L 04/16/17 07:00 Weight - Most Recent: 116 kg I&O - Last 24 Hours: Intake & Output 04/15/17 04/16/17 04/16/17 22:59 06:59 14:59 Intake Total 1855 750 Output Total 900 1750 Balance 955 -1000 Lab Results Last 24 Hours: Laboratory Results - last 24 hr 04/15/17 04/15/17 04/15/17 Range/Units 11:47 15:50 16:41 WBC (4.0-11.0) K/uL RBC (4.50-5.90) M/uL Hgb (13.0-17.0) g/dL Hct (38.0-50.0) % MCV (80.0-98.0) fL MCH (27.0-32.0) pg MCHC (31.0-37.0) g/dL RDW Std Deviation (28.0-62.0) fl RDW Coeff of Aureliano (11.0-15.0) % Plt Count (150-400) K/uL MPV (7.40-12.00) fL Add Manual Diff Neutrophils % (Manual) (48.0-80.0) % Band Neutrophils % % Lymphocytes % (Manual) (16.0-40.0) % Monocytes % (Manual) (0.0-15.0) % Eosinophils % (Manual) (0.0-7.0) % Nucleated RBC % /100WBC Absolute Seg Neuts (1.4-5.7) Band Neutrophils # Lymphocytes # (Manual) (0.6-2.4) Monocytes # (Manual) (0.0-0.8) Eosinophils # (Manual) (0.0-0.7) Nucleated RBCs # K/uL APTT 34.4 H (18.6-31.3) SEC Sodium (136-146) mmol/L Potassium (3.5-5.1) mmol/L Chloride (98-110) mmol/L Carbon Dioxide (21-31) mmol/L BUN (6.0-23.0) mg/dL Creatinine (0.6-1.5) mg/dL Est Cr Clr Drug Dosing mL/min Estimated GFR (MDRD) ml/min Glucose (60-110) mg/dL POC Glucose 128 H 133 H (60-110) mg/dL Calcium (8.8-10.8) mg/dL Magnesium (1.5-2.3) mEq/L Total Bilirubin (0.1-1.5) mg/dL AST (5-40) IU/L ALT (8-54) IU/L Alkaline Phosphatase (40-150) Total Protein (6.0-8.0) g/dL Albumin (3.5-5.0) g/dL Globulin (2.0-3.5) g/dL Albumin/Globulin Ratio (1.3-2.8) 04/15/17 04/16/17 04/16/17 Range/Units 22:40 04:59 04:59 WBC 10.39 (4.0-11.0) K/uL RBC 4.83 (4.50-5.90) M/uL Hgb 12.7 L (13.0-17.0) g/dL Hct 39.8 (38.0-50.0) % MCV 82.4 (80.0-98.0) fL MCH 26.3 L (27.0-32.0) pg MCHC 31.9 (31.0-37.0) g/dL RDW Std Deviation 43.7 (28.0-62.0) fl RDW Coeff of Aureliano 15 (11.0-15.0) % Plt Count 203 (150-400) K/uL MPV 8.90 (7.40-12.00) fL Add Manual Diff YES Neutrophils % (Manual) 75 (48.0-80.0) % Band Neutrophils % 3 % Lymphocytes % (Manual) 12 L (16.0-40.0) % Monocytes % (Manual) 7 (0.0-15.0) % Eosinophils % (Manual) 3 (0.0-7.0) % Nucleated RBC % 0.0 /100WBC Absolute Seg Neuts 7.8 H (1.4-5.7) Band Neutrophils # 0.3 Lymphocytes # (Manual) 1.2 (0.6-2.4) Monocytes # (Manual) 0.7 (0.0-0.8) Eosinophils # (Manual) 0.3 (0.0-0.7) Nucleated RBCs # 0 K/uL APTT 44.5 H (18.6-31.3) SEC Sodium 137 (136-146) mmol/L Potassium 3.6 (3.5-5.1) mmol/L Chloride 104 (98-110) mmol/L Carbon Dioxide 25 (21-31) mmol/L BUN 14 (6.0-23.0) mg/dL Creatinine 0.8 (0.6-1.5) mg/dL Est Cr Clr Drug Dosing 111.98 mL/min Estimated GFR (MDRD) > 60.0 ml/min Glucose 152 H (60-110) mg/dL POC Glucose (60-110) mg/dL Calcium 8.9 (8.8-10.8) mg/dL Magnesium 1.3 L (1.5-2.3) mEq/L Total Bilirubin 0.3 (0.1-1.5) mg/dL AST 15 (5-40) IU/L ALT 17 (8-54) IU/L Alkaline Phosphatase 50 (40-150) Total Protein 5.9 L (6.0-8.0) g/dL Albumin 2.8 L (3.5-5.0) g/dL Globulin 3.1 (2.0-3.5) g/dL Albumin/Globulin Ratio 0.9 L (1.3-2.8) 04/16/17 Range/Units 04:59 WBC (4.0-11.0) K/uL RBC (4.50-5.90) M/uL Hgb (13.0-17.0) g/dL Hct (38.0-50.0) % MCV (80.0-98.0) fL MCH (27.0-32.0) pg MCHC (31.0-37.0) g/dL RDW Std Deviation (28.0-62.0) fl RDW Coeff of Aureliano (11.0-15.0) % Plt Count (150-400) K/uL MPV (7.40-12.00) fL Add Manual Diff Neutrophils % (Manual) (48.0-80.0) % Band Neutrophils % % Lymphocytes % (Manual) (16.0-40.0) % Monocytes % (Manual) (0.0-15.0) % Eosinophils % (Manual) (0.0-7.0) % Nucleated RBC % /100WBC Absolute Seg Neuts (1.4-5.7) Band Neutrophils # Lymphocytes # (Manual) (0.6-2.4) Monocytes # (Manual) (0.0-0.8) Eosinophils # (Manual) (0.0-0.7) Nucleated RBCs # K/uL APTT 51.7 H (18.6-31.3) SEC Sodium (136-146) mmol/L Potassium (3.5-5.1) mmol/L Chloride (98-110) mmol/L Carbon Dioxide (21-31) mmol/L BUN (6.0-23.0) mg/dL Creatinine (0.6-1.5) mg/dL Est Cr Clr Drug Dosing mL/min Estimated GFR (MDRD) ml/min Glucose (60-110) mg/dL POC Glucose (60-110) mg/dL Calcium (8.8-10.8) mg/dL Magnesium (1.5-2.3) mEq/L Total Bilirubin (0.1-1.5) mg/dL AST (5-40) IU/L ALT (8-54) IU/L Alkaline Phosphatase (40-150) Total Protein (6.0-8.0) g/dL Albumin (3.5-5.0) g/dL Globulin (2.0-3.5) g/dL Albumin/Globulin Ratio (1.3-2.8) Robinson Results Last 24 Hours: Microbiology 04/10/17 14:30 Aerobic Blood Culture - Final Blood - Venous - Lab Draw NO GROWTH AFTER 5 DAYS Anaerobic Blood Culture - Final NO GROWTH AFTER 5 DAYS 04/10/17 14:20 Aerobic Blood Culture - Final Blood - Venous NO GROWTH AFTER 5 DAYS Anaerobic Blood Culture - Final NO GROWTH AFTER 5 DAYS Med Orders - Current: Current Medications Apixaban (Eliquis) 10 mg PO BID NORM Diltiazem HCl (Diltiazem) 0 mg IVPUSH Q1H PRN; Protocol PRN Reason: Arrhythmia Last Admin: 04/12/17 13:04 Dose: 5 mg Diltiazem HCl (Cardizem Cd) 360 mg PO Q24H [facility] Last Admin: 04/15/17 22:47 Dose: 360 mg Famotidine (Pepcid) 20 mg IVPUSH BID [facility] Last Admin: 04/16/17 09:11 Dose: 20 mg Levofloxacin/Dextrose 750 mg/ (Premix) 150 mls @ 100 mls/hr IV Q24H [facility] Last Admin: 04/15/17 13:58 Dose: 100 mls/hr Metronidazole 500 mg/ Premix 100 mls @ 100 mls/hr IV Q8H [facility] Last Admin: 04/16/17 09:11 Dose: 100 mls/hr Diltiazem HCl 100 mg/ Sodium (Chloride) 100 mls @ 5 mls/hr IV TITRATE NORM; 5 MG /HR PRN Reason: Protocol Last Titration: 04/13/17 02:05 Dose: 5 mg/hr, 5 mls/hr Magnesium Sulfate 4 gm/ Premix 100 mls @ 25 mls/hr IV ONETIME ONE Stop: 04/16/17 11:40 Last Admin: 04/16/17 09:10 Dose: 25 mls/hr Magnesium Sulfate 4 gm/ Premix 100 mls @ 25 mls/hr IV ONETIME ONE Stop: 04/16/17 22:59 Insulin Aspart (Novolog) 0 unit SUBCUT TIDAC [facility] PRN Reason: Protocol Last Admin: 04/16/17 08:25 Dose: Not Given Metoclopramide HCl (Reglan) 10 mg IVPUSH Q6H [facility] Last Admin: 04/16/17 09:11 Dose: 10 mg Metoprolol Succinate (Toprol Xl) 100 mg PO DAILY [facility] Last Admin: 04/16/17 09:11 Dose: 100 mg Morphine Sulfate (Morphine) 2 mg IVPUSH Q2H PRN PRN Reason: Pain Last Admin: 04/11/17 21:32 Dose: 2 mg Morphine Sulfate (Morphine) 0 mg IVPUSH Q1H PRN PRN Reason: Pain (severe 7-10) Ondansetron HCl (Zofran) 4 mg IVPUSH Q6H PRN PRN Reason: Nausea/Vomiting Discontinued Medications Bupivacaine HCl (Marcaine 0.5%) Confirm Administered Dose 30 ml .ROUTE .STK-MED ONE Stop: 04/10/17 17:34 Cefazolin Sodium (Ancef) Confirm Administered Dose 1 gm .ROUTE .STK-MED ONE Stop: 04/10/17 17:34 Digoxin (Lanoxin) 250 mcg IVPUSH ONETIME ONE Stop: 04/11/17 15:00 Last Admin: 04/11/17 19:41 Dose: Not Given Digoxin (Lanoxin) Confirm Administered Dose 500 mcg .ROUTE .STK-MED ONE Stop: 04/11/17 15:26 Last Admin: 04/11/17 19:41 Dose: Not Given Digoxin (Lanoxin) 250 mcg IVPUSH ONETIME ONE Stop: 04/11/17 18:39 Last Admin: 04/11/17 19:45 Dose: 250 mcg Diltiazem HCl (Diltiazem) 20 mg IVPUSH ONETIME ONE Stop: 04/11/17 20:50 Last Admin: 04/11/17 21:05 Dose: 20 mg Diltiazem HCl (Diltiazem) 20 mg IVPUSH ONETIME ONE Stop: 04/11/17 22:20 Last Admin: 04/11/17 22:36 Dose: 20 mg Diltiazem HCl (Diltiazem) Confirm Administered Dose 25 mg .ROUTE .STK-MED ONE Stop: 04/11/17 22:36 Last Admin: 04/11/17 22:42 Dose: Not Given Diltiazem HCl (Diltiazem) Confirm Administered Dose 25 mg .ROUTE .STK-MED ONE Stop: 04/12/17 09:02 Last Admin: 04/12/17 09:07 Dose: 5 mg Diltiazem HCl (Cardizem) 30 mg PO Q6HR [facility] Last Admin: 04/13/17 17:44 Dose: 30 mg Diltiazem HCl (Cardizem) 30 mg PO ONETIME ONE Stop: 04/13/17 18:50 Last Admin: 04/13/17 18:55 Dose: 30 mg Diltiazem HCl (Cardizem) 60 mg PO Q6HR [facility] Last Admin: 04/14/17 07:29 Dose: 60 mg Diltiazem HCl (Cardizem) 30 mg PO ONETIME ONE Stop: 04/14/17 08:44 Last Admin: 04/14/17 08:49 Dose: 30 mg Diltiazem HCl (Cardizem) 90 mg PO Q6HR [facility] Stop: 04/14/17 18:00 Last Admin: 04/14/17 17:19 Dose: 90 mg Etomidate (Amidate) Confirm Administered Dose 40 mg IVPUSH .STK-MED ONE Stop: 04/10/17 17:22 Fentanyl (Sublimaze) Confirm Administered Dose 250 mcg .ROUTE .STK-MED ONE Stop: 04/10/17 17:22 Heparin Sodium (Porcine) (Heparin Sodium) Confirm Administered Dose 5,000 units .ROUTE .STK-MED ONE Stop: 04/11/17 12:51 Last Admin: 04/11/17 19:41 Dose: Not Given Heparin Sodium (Porcine) (Heparin Sodium) 5,000 units SUBCUT Q8H [facility] Last Admin: 04/14/17 13:44 Dose: 5,000 units Heparin Sodium (Porcine) (Heparin Sodium) 0 units IVPUSH ASDIRECTED PRN; Protocol PRN Reason: see heparin protocol Last Admin: 04/15/17 23:12 Dose: 1,500 units Metronidazole 500 mg/ Premix 100 mls @ 100 mls/hr IV Q8H [facility] Last Admin: 04/10/17 17:47 Dose: Not Given Sodium Chloride (Normal Saline) 500 mls @ 1,000 mls/hr IV .BOLUS [facility] Last Admin: 04/10/17 15:45 Dose: 1,000 mls/hr Sodium Chloride (Normal Saline) 1,000 mls @ 125 mls/hr IV ASDIRECTED [facility] Last Admin: 04/10/17 22:48 Dose: 150 mls/hr Dopamine HCl/Dextrose (Dopamine In D5w 400 Mg/250 Ml) 400 mg in 250 mls @ 8.67 mls/hr IV TITRATE NORM; 2 MCG/KG/MIN PRN Reason: Protocol Norepinephrine Bitartrate (Norepinephr-0.9% Nacl 4 Mg/250) 4 mg in 250 mls @ 7.5 mls/hr IV TITRATE NORM; 2 MCG/MIN PRN Reason: Protocol Last Titration: 04/11/17 04:39 Dose: 3 mcg/min, 11.25 mls/hr Vasopressin 100 units/ Sodium (Chloride) 100 mls @ 0 mls/hr IV TITRATE NORM; Per Protocol PRN Reason: Protocol Last Titration: 04/11/17 20:30 Dose: 0 units/min, 0 mls/hr Sodium Chloride (Normal Saline) Confirm Administered Dose 20 mls @ as directed .ROUTE .STK-MED ONE Stop: 04/10/17 17:24 Sodium Chloride (Normal Saline) 500 mls @ 999 mls/hr IV .BOLUS NORM Last Admin: 04/10/17 18:11 Dose: Not Given Acetaminophen (Ofirmev) Confirm Administered Dose 100 mls @ as directed IV .STK- MED ONE Stop: 04/10/17 19:13 Lactated Ringer's (Ringers, Lactated) 1,000 mls @ 175 mls/hr IV ASDIRECTED NORM Stop: 04/11/17 00:08 Sodium Chloride (Normal Saline) 1,000 mls @ 150 mls/hr IV ASDIRECTED NORM Last Infusion: 04/11/17 23:15 Dose: 75 mls/hr Magnesium Sulfate (Magnesium Sulfate 2 Gm In Water 50 Ml) Confirm Administered Dose 50 mls @ as directed .ROUTE .STK-MED ONE Stop: 04/11/17 12:51 Last Admin: 04/11/17 19:41 Dose: Not Given Sodium Chloride (Normal Saline) Confirm Administered Dose 100 mls @ as directed .ROUTE .STK-MED ONE Stop: 04/11/17 22:26 Last Admin: 04/11/17 22:29 Dose: Not Given Sodium Chloride (Normal Saline) 1,000 mls @ 75 mls/hr IV ASDIRECTED NORM Last Admin: 04/13/17 21:06 Dose: 75 mls/hr Magnesium Sulfate 4 gm/ Premix 100 mls @ 50 mls/hr IV ONETIME ONE Stop: 04/13/17 11:26 Last Admin: 04/13/17 09:39 Dose: 50 mls/hr Magnesium Sulfate 4 gm/ Premix 100 mls @ 50 mls/hr IV ONETIME ONE Stop: 04/13/17 13:29 Last Admin: 04/13/17 11:37 Dose: 50 mls/hr Magnesium Sulfate 4 gm/ Premix 100 mls @ 50 mls/hr IV ONETIME ONE Stop: 04/14/17 10:04 Last Admin: 04/14/17 08:17 Dose: 50 mls/hr Heparin Sod,Pork In 0.45% Nacl (Heparin-1/2ns 25,000 Units/500) 25,000 unit in 500 mls @ 26 mls/hr IV TITRATE NORM PRN Reason: Protocol Last Admin: 04/16/17 05:24 Dose: 19 units/kg/hr, 44.84 mls/hr Magnesium Sulfate 4 gm/ Premix 100 mls @ 50 mls/hr IV ONETIME ONE Stop: 04/15/17 12:29 Last Admin: 04/15/17 11:50 Dose: 50 mls/hr Insulin Aspart (Novolog) 0 unit SUBCUT Q6H NORM PRN Reason: Protocol Last Admin: 04/12/17 06:55 Dose: Not Given Iopamidol (Isovue-370 (76%)) 100 ml IV ONETIME STA Stop: 04/14/17 16:47 Last Admin: 04/14/17 16:47 Dose: 100 ml Ketamine HCl (Ketalar) Confirm Administered Dose 500 mg .ROUTE .STK-MED ONE Stop: 04/10/17 17:22 Lidocaine (Xylocaine-Mpf 2%) Confirm Administered Dose 5 ml .ROUTE .STK-MED ONE Stop: 04/10/17 17:22 Lorazepam (Ativan) 1 mg IVPUSH ONETIME ONE Stop: 04/11/17 22:19 Last Admin: 04/11/17 22:26 Dose: 1 mg Metoprolol Succinate (Toprol Xl) 50 mg PO DAILY [facility] Last Admin: 04/13/17 08:00 Dose: 50 mg Metoprolol Succinate (Toprol Xl) 50 mg PO ONETIME ONE Stop: 04/13/17 09:12 Last Admin: 04/13/17 09:38 Dose: 50 mg Midazolam HCl (Versed 1 Mg/Ml) Confirm Administered Dose 2 mg .ROUTE .STK-MED ONE Stop: 04/10/17 17:22 Ondansetron HCl (Zofran) 4 mg IVPUSH Q4H PRN PRN Reason: Nausea Ondansetron HCl (Zofran) Confirm Administered Dose 4 mg .ROUTE .STK-MED ONE Stop: 04/10/17 17:22 Phenylephrine HCl (Phenylephrine In Ns 100 Mcg/Ml) Confirm Administered Dose 1 mg .ROUTE .STK-MED ONE Stop: 04/10/17 18:15 Potassium Chloride (Klor-Con M20) 40 meq PO ONETIME ONE Stop: 04/14/17 08:05 Last Admin: 04/14/17 08:17 Dose: 40 meq Potassium Chloride (Potassium Chloride) 40 meq PO ONETIME ONE Stop: 04/16/17 08:35 Last Admin: 04/16/17 09:11 Dose: 40 meq Rocuronium [place] (Zemuron) Confirm Administered Dose 100 mg .ROUTE .STK-MED ONE Stop: 04/10/17 17:22 Succinylcholine Chloride (Succinylcholine In Ns Pf) Confirm Administered Dose 200 mg .ROUTE .STK-MED ONE Stop: 04/10/17 17:22 - Exam Quality Assessment: DVT Prophylaxis General: Alert, Oriented, Cooperative, No Acute Distress HEENT: Pupils Equal, Pupils Reactive, EOMI, Mucous Membr. Moist/[place] Neck: Supple, Trachea Midline Lungs: Clear to Auscultation, Normal Respiratory Effort. No: Crackles, Rales, Wheezing Cardiovascular: Regular Rate, Regular Rhythm, Murmurs GI/Abdominal Exam: Normal Bowel Sounds, Soft, No Organomegaly, No Distention, No Abnormal Bruit, Tender. No: Guarding, Rigid, Rebound Back Exam: Normal Inspection Extremities: Non-Tender, Normal Capillary Refill, Pedal Edema (+1 to 2 inches above ankles bilaterally) Peripheral Pulses: 2+: Radial (L), Radial (R), Posterior Tibial (L), Posterior Tibial (R), Dorsalis Pedis (L), Dorsalis Pedis (R) Skin: Warm, Dry, Intact Wound/Incisions: Healing Well Neurological: No New Focal Deficit Psy/Mental Status: Alert, Normal Affect, Normal Mood - Problem List & Annotations (1) Septic shock SNOMED Code(s): 46072434 Code(s): A41.9 - SEPSIS, UNSPECIFIED ORGANISM; R65.21 - SEVERE SEPSIS WITH SEPTIC SHOCK Status: Acute Priority: High Current Visit: Yes (2) Pulmonary embolism on left SNOMED Code(s): 01522638 Code(s): I26.99 - OTHER PULMONARY EMBOLISM WITHOUT ACUTE COR PULMONALE Status: Acute Priority: High Current Visit: Yes (3) Acute appendicitis with rupture SNOMED Code(s): 62192870 Code(s): K35.2 - ACUTE APPENDICITIS WITH GENERALIZED PERITONITIS Status: Acute Priority: High Current Visit: Yes (4) Atrial fib/flutter, transient SNOMED Code(s): 666019824 Code(s): STC6608 - Status: Acute Priority: High Current Visit: Yes (5) Coronary artery disease SNOMED Code(s): 95390461 Code(s): I25.10 - ATHSCL HEART DISEASE OF [place] CORONARY ARTERY W/O ANG PCTRS Status: Chronic Priority: Medium Current Visit: Yes Qualifiers: Coronary Disease-Associated Artery/Lesion type: unspecified vessel or lesion type [place] vs. transplanted heart: [place] heart Associated angina: without angina Qualified Code(s): I25.10 - Atherosclerotic heart disease of [place] coronary artery without angina pectoris (6) Diabetes 1.5, managed as type 2 SNOMED Code(s): 845171487 Code(s): E10.9 - TYPE 1 DIABETES MELLITUS WITHOUT COMPLICATIONS Status: Chronic Priority: Medium Current Visit: Yes - Problem List Review Problem List Initiated/Reviewed/Updated: Yes - My Orders Last 24 Hours: My Active Orders 04/16/17 07:41 Magnesium Sulfate/Water [Magnesium Sulfate 4 GM in Water 100 ML] 4 gm Premix Bag 1 bag IV ONETIME 04/16/17 09:00 Apixaban [Eliquis] 10 mg PO BID 04/16/17 19:00 Magnesium Sulfate/Water [Magnesium Sulfate 4 GM in Water 100 ML] 4 gm Premix Bag 1 bag IV ONETIME - Plan Plan:: 56 yo male admitted 04/10/17 for peritonitis/septic shock with perforated appendicitis with history of HTN, DM T2, and arrythmia with new segmental PE LLL . Diffuse peritonitis s/p exploratory appendectomy, secondary to Perforated Appendix: -On Levaquin and Metronidazole day 7 with continued improvement WBC normalized 11.5k to 10k today. -surgery will remove scott on 04/20 if patient still in house. -continue Levaquin & Metronidazole PE LLL: -recieved IV Heparin x 2 days with brief stop for 2 hrs so surgery could remove JADON. Was restarted after. - Will start Eliquis today 10 mg po BID x 5 days then 5 mg PO BID Arrythmia, likely multifactorial etiology, resolved: -fluctuated bw Atrial fibrillation, Atral flutter & Sinus Tachycardia -as per EHR, patient had isolated incident of AF in 2011 that resolved -patient currently back in sinus with hr 70's-80's -echo completed, awaiting reading -on Toprol 100 mg QAM and Cardizem CD 360 mg QPM -[id number] score 2 -will continue Toprol and Cardizem CD -Target Mg over 2 and K over 4 -continue management as per cardio rec's HTN, controlled: -home regimen prior to admission was Toprol 50 mg QD and Ramipril 2.5 mg QD -on Toprol 100 mg QD will restart ramipril today at 2.5 mg q day now that HR has stabilized. Hypomagnasemia: -Mg 4 mg IV x2 doses -repeat Mg in AM DM T2: -continue BG monitoring and ISS Will remove central line today and switch to floor status.
[2017-04-16] MEDS: Levofloxacin/Dextrose 5%-Water 750 MG in Premix Bag 1 BAG IV SCH (17:51)
[2017-04-16] MEDS: Diltiazem 180 MG Cap.CD PO SCH (22:11)
[2017-04-17] MEDS: metroNIDAZOLE/Normal Saline 500 MG in Premix Bag 1 BAG IV SCH ×3 (00:59→17:23)
[2017-04-17] MEDS: Metoclopramide 10 MG/2 ML SDV IVPUSH SCH ×2 (01:00→08:24)
[2017-04-17] MEDS: Insulin Aspart 100 Units/ML 3 ML Pen SUBCUT SCH ×3 (06:56→17:20)
[2017-04-17 06:59] LABS: CHLORIDE,CL 105 mmol/L (98-110); SODIUM,NA 138 mmol/L (136-146)
[2017-04-17] MEDS ORDERED: Magnesium Sulfate/Water 4 GM in Premix Bag 1 BAG IV ONE (07:29)
[2017-04-17] MEDS ORDERED: Potassium Chloride 20 MEQ Tab.ER PO ONE (07:48)
[2017-04-17] MEDS: Famotidine 20 MG/2 ML SDV IVPUSH SCH ×2 (08:24→20:42)
[2017-04-17] MEDS: Apixaban 5 MG Tab PO SCH ×2 (08:24→20:40)
[2017-04-17] MEDS: Metoprolol Succinate 100 MG Tab.ER PO SCH (08:24)
--- NOTE | 2017-04-17 08:51 | PCM.PN ---
- General Info Date of Service: 04/17/17 Admission Dx/Problem (Free Text): Admission Diagnosis/Problem Admission Diagnosis/Problem Abdominal pain Subjective Update: Up and ambulating this am, Continuing to feel improved. Having gas and bowel movements. Only some abd pain with gas but minimal. Slept well, eating and eliminating without difficulty. Functional Status: Reports: Pain Controlled, Tolerating Diet, Ambulating - Review of Systems General: Reports: Weakness. Denies: Fever, Fatigue, Malaise HEENT: Denies: Headaches, Visual Changes Pulmonary: Denies: Shortness of Breath, Cough, Sputum Cardiovascular: Reports: Edema. Denies: Chest Pain, Palpitations Gastrointestinal: Reports: Abdominal Pain. Denies: Diarrhea, Nausea, Vomiting Genitourinary: Denies: Dysuria, Hematuria Musculoskeletal: Denies: Neck Pain, Leg Pain Skin: Denies: Cyanosis Neurological: Denies: Confusion, Dizziness, Headache Psychiatric: Denies: Confusion - Patient Data Vitals - Most Recent: Last Vital Signs Temp 98.1 F 04/17/17 04:00 Pulse 84 04/17/17 08:24 Resp 22 H 04/17/17 08:00 BP 137/76 04/17/17 08:24 Pulse Ox 92 L 04/17/17 08:00 Weight - Most Recent: 114.8 kg I&O - Last 24 Hours: Intake & Output 04/16/17 04/17/17 04/17/17 22:59 06:59 14:59 Intake Total 800 450 Output Total 1600 Balance 800 -1150 Lab Results Last 24 Hours: Laboratory Results - last 24 hr 04/17/17 04/17/17 Range/Units 05:37 05:37 WBC 11.32 H (4.0-11.0) K/uL RBC 4.99 (4.50-5.90) M/uL Hgb 13.1 (13.0-17.0) g/dL Hct 40.9 (38.0-50.0) % MCV 82.0 (80.0-98.0) fL MCH 26.3 L (27.0-32.0) pg MCHC 32.0 (31.0-37.0) g/dL RDW Std Deviation 43.8 (28.0-62.0) fl RDW Coeff of Aureliano 15 (11.0-15.0) % Plt Count 264 (150-400) K/uL MPV 9.20 (7.40-12.00) fL Nucleated RBC % 0.0 /100WBC Nucleated RBCs # 0 K/uL Sodium 138 (136-146) mmol/L Potassium 3.8 (3.5-5.1) mmol/L Chloride 105 (98-110) mmol/L Carbon Dioxide 23 (21-31) mmol/L BUN 14 (6.0-23.0) mg/dL Creatinine 0.9 (0.6-1.5) mg/dL Est Cr Clr Drug Dosing 99.53 mL/min Estimated GFR (MDRD) > 60.0 ml/min Glucose 116 H (60-110) mg/dL Calcium 8.9 (8.8-10.8) mg/dL Magnesium 1.7 (1.5-2.3) mEq/L Med Orders - Current: Current Medications Apixaban (Eliquis) 10 mg PO BID [facility] Last Admin: 04/17/17 08:24 Dose: 10 mg Diltiazem HCl (Diltiazem) 0 mg IVPUSH Q1H PRN; Protocol PRN Reason: Arrhythmia Last Admin: 04/12/17 13:04 Dose: 5 mg Diltiazem HCl (Cardizem Cd) 360 mg PO Q24H [facility] Last Admin: 04/16/17 22:11 Dose: 360 mg Famotidine (Pepcid) 20 mg IVPUSH BID [facility] Last Admin: 04/17/17 08:24 Dose: 20 mg Levofloxacin/Dextrose 750 mg/ (Premix) 150 mls @ 100 mls/hr IV Q24H [facility] Last Admin: 04/16/17 17:51 Dose: Not Given Metronidazole 500 mg/ Premix 100 mls @ 100 mls/hr IV Q8H [facility] Last Admin: 04/17/17 08:38 Dose: 100 mls/hr Diltiazem HCl 100 mg/ Sodium (Chloride) 100 mls @ 5 mls/hr IV TITRATE NORM; 5 MG /HR PRN Reason: Protocol Last Titration: 04/13/17 02:05 Dose: 5 mg/hr, 5 mls/hr Magnesium Sulfate 4 gm/ Premix 100 mls @ 25 mls/hr IV ONETIME ONE Stop: 04/17/17 11:28 Last Admin: 04/17/17 08:25 Dose: 25 mls/hr Insulin Aspart (Novolog) 0 unit SUBCUT TIDAC [facility] PRN Reason: Protocol Last Admin: 04/17/17 06:56 Dose: Not Given Metoclopramide HCl (Reglan) 10 mg IVPUSH Q6H [facility] Last Admin: 04/17/17 08:24 Dose: 10 mg Metoprolol Succinate (Toprol Xl) 100 mg PO DAILY [facility] Last Admin: 04/17/17 08:24 Dose: 100 mg Morphine Sulfate (Morphine) 2 mg IVPUSH Q2H PRN PRN Reason: Pain Last Admin: 04/11/17 21:32 Dose: 2 mg Morphine Sulfate (Morphine) 0 mg IVPUSH Q1H PRN PRN Reason: Pain (severe 7-10) Ondansetron HCl (Zofran) 4 mg IVPUSH Q6H PRN PRN Reason: Nausea/Vomiting Ramipril (Altace) 2.5 mg PO DAILY [facility] Last Admin: 04/17/17 08:20 Dose: 2.5 mg Discontinued Medications Bupivacaine HCl (Marcaine 0.5%) Confirm Administered Dose 30 ml .ROUTE .STK-MED ONE Stop: 04/10/17 17:34 Cefazolin Sodium (Ancef) Confirm Administered Dose 1 gm .ROUTE .STK-MED ONE Stop: 04/10/17 17:34 Digoxin (Lanoxin) 250 mcg IVPUSH ONETIME ONE Stop: 04/11/17 15:00 Last Admin: 04/11/17 19:41 Dose: Not Given Digoxin (Lanoxin) Confirm Administered Dose 500 mcg .ROUTE .STK-MED ONE Stop: 04/11/17 15:26 Last Admin: 04/11/17 19:41 Dose: Not Given Digoxin (Lanoxin) 250 mcg IVPUSH ONETIME ONE Stop: 04/11/17 18:39 Last Admin: 04/11/17 19:45 Dose: 250 mcg Diltiazem HCl (Diltiazem) 20 mg IVPUSH ONETIME ONE Stop: 04/11/17 20:50 Last Admin: 04/11/17 21:05 Dose: 20 mg Diltiazem HCl (Diltiazem) 20 mg IVPUSH ONETIME ONE Stop: 04/11/17 22:20 Last Admin: 04/11/17 22:36 Dose: 20 mg Diltiazem HCl (Diltiazem) Confirm Administered Dose 25 mg .ROUTE .STK-MED ONE Stop: 04/11/17 22:36 Last Admin: 04/11/17 22:42 Dose: Not Given Diltiazem HCl (Diltiazem) Confirm Administered Dose 25 mg .ROUTE .STK-MED ONE Stop: 04/12/17 09:02 Last Admin: 04/12/17 09:07 Dose: 5 mg Diltiazem HCl (Cardizem) 30 mg PO Q6HR [facility] Last Admin: 04/13/17 17:44 Dose: 30 mg Diltiazem HCl (Cardizem) 30 mg PO ONETIME ONE Stop: 04/13/17 18:50 Last Admin: 04/13/17 18:55 Dose: 30 mg Diltiazem HCl (Cardizem) 60 mg PO Q6HR [facility] Last Admin: 04/14/17 07:29 Dose: 60 mg Diltiazem HCl (Cardizem) 30 mg PO ONETIME ONE Stop: 04/14/17 08:44 Last Admin: 04/14/17 08:49 Dose: 30 mg Diltiazem HCl (Cardizem) 90 mg PO Q6HR NORM Stop: 04/14/17 18:00 Last Admin: 04/14/17 17:19 Dose: 90 mg Etomidate (Amidate) Confirm Administered Dose 40 mg IVPUSH .STK-MED ONE Stop: 04/10/17 17:22 Fentanyl (Sublimaze) Confirm Administered Dose 250 mcg .ROUTE .STK-MED ONE Stop: 04/10/17 17:22 Heparin Sodium (Porcine) (Heparin Sodium) Confirm Administered Dose 5,000 units .ROUTE .STK-MED ONE Stop: 04/11/17 12:51 Last Admin: 04/11/17 19:41 Dose: Not Given Heparin Sodium (Porcine) (Heparin Sodium) 5,000 units SUBCUT Q8H [facility] Last Admin: 04/14/17 13:44 Dose: 5,000 units Heparin Sodium (Porcine) (Heparin Sodium) 0 units IVPUSH ASDIRECTED PRN; Protocol PRN Reason: see heparin protocol Last Admin: 04/15/17 23:12 Dose: 1,500 units Metronidazole 500 mg/ Premix 100 mls @ 100 mls/hr IV Q8H [facility] Last Admin: 04/10/17 17:47 Dose: Not Given Sodium Chloride (Normal Saline) 500 mls @ 1,000 mls/hr IV .BOLUS NORM Last Admin: 04/10/17 15:45 Dose: 1,000 mls/hr Sodium Chloride (Normal Saline) 1,000 mls @ 125 mls/hr IV ASDIRECTED NORM Last Admin: 04/10/17 22:48 Dose: 150 mls/hr Dopamine HCl/Dextrose (Dopamine In D5w 400 Mg/250 Ml) 400 mg in 250 mls @ 8.67 mls/hr IV TITRATE NORM; 2 MCG/KG/MIN PRN Reason: Protocol Norepinephrine Bitartrate (Norepinephr-0.9% Nacl 4 Mg/250) 4 mg in 250 mls @ 7.5 mls/hr IV TITRATE NORM; 2 MCG/MIN PRN Reason: Protocol Last Titration: 04/11/17 04:39 Dose: 3 mcg/min, 11.25 mls/hr Vasopressin 100 units/ Sodium (Chloride) 100 mls @ 0 mls/hr IV TITRATE NORM; Per Protocol PRN Reason: Protocol Last Titration: 04/11/17 20:30 Dose: 0 units/min, 0 mls/hr Sodium Chloride (Normal Saline) Confirm Administered Dose 20 mls @ as directed .ROUTE .STK-MED ONE Stop: 04/10/17 17:24 Sodium Chloride (Normal Saline) 500 mls @ 999 mls/hr IV .BOLUS NORM Last Admin: 04/10/17 18:11 Dose: Not Given Acetaminophen (Ofirmev) Confirm Administered Dose 100 mls @ as directed IV .STK- MED ONE Stop: 04/10/17 19:13 Lactated Ringer's (Ringers, Lactated) 1,000 mls @ 175 mls/hr IV ASDIRECTED NORM Stop: 04/11/17 00:08 Sodium Chloride (Normal Saline) 1,000 mls @ 150 mls/hr IV ASDIRECTED NORM Last Infusion: 04/11/17 23:15 Dose: 75 mls/hr Magnesium Sulfate (Magnesium Sulfate 2 Gm In Water 50 Ml) Confirm Administered Dose 50 mls @ as directed .ROUTE .STK-MED ONE Stop: 04/11/17 12:51 Last Admin: 04/11/17 19:41 Dose: Not Given Sodium Chloride (Normal Saline) Confirm Administered Dose 100 mls @ as directed .ROUTE .STK-MED ONE Stop: 04/11/17 22:26 Last Admin: 04/11/17 22:29 Dose: Not Given Sodium Chloride (Normal Saline) 1,000 mls @ 75 mls/hr IV ASDIRECTED NORM Last Admin: 04/13/17 21:06 Dose: 75 mls/hr Magnesium Sulfate 4 gm/ Premix 100 mls @ 50 mls/hr IV ONETIME ONE Stop: 04/13/17 11:26 Last Admin: 04/13/17 09:39 Dose: 50 mls/hr Magnesium Sulfate 4 gm/ Premix 100 mls @ 50 mls/hr IV ONETIME ONE Stop: 04/13/17 13:29 Last Admin: 04/13/17 11:37 Dose: 50 mls/hr Magnesium Sulfate 4 gm/ Premix 100 mls @ 50 mls/hr IV ONETIME ONE Stop: 04/14/17 10:04 Last Admin: 04/14/17 08:17 Dose: 50 mls/hr Heparin Sod,[place] In 0.45% Nacl (Heparin-1/2ns 25,000 Units/500) 25,000 unit in 500 mls @ 26 mls/hr IV TITRATE NORM PRN Reason: Protocol Last Admin: 04/16/17 05:24 Dose: 19 units/kg/hr, 44.84 mls/hr Magnesium Sulfate 4 gm/ Premix 100 mls @ 50 mls/hr IV ONETIME ONE Stop: 04/15/17 12:29 Last Admin: 04/15/17 11:50 Dose: 50 mls/hr Magnesium Sulfate 4 gm/ Premix 100 mls @ 25 mls/hr IV ONETIME ONE Stop: 04/16/17 11:40 Last Admin: 04/16/17 09:10 Dose: 25 mls/hr Magnesium Sulfate 4 gm/ Premix 100 mls @ 25 mls/hr IV ONETIME ONE Stop: 04/16/17 22:59 Last Admin: 04/16/17 18:37 Dose: 25 mls/hr Insulin Aspart (Novolog) 0 unit SUBCUT Q6H NORM PRN Reason: Protocol Last Admin: 04/12/17 06:55 Dose: Not Given Iopamidol (Isovue-370 (76%)) 100 ml IV ONETIME STA Stop: 04/14/17 16:47 Last Admin: 04/14/17 16:47 Dose: 100 ml Ketamine HCl (Ketalar) Confirm Administered Dose 500 mg .ROUTE .STK-MED ONE Stop: 04/10/17 17:22 Lidocaine (Xylocaine-Mpf 2%) Confirm Administered Dose 5 ml .ROUTE .STK-MED ONE Stop: 04/10/17 17:22 Lorazepam (Ativan) 1 mg IVPUSH ONETIME ONE Stop: 04/11/17 22:19 Last Admin: 04/11/17 22:26 Dose: 1 mg Metoprolol Succinate (Toprol Xl) 50 mg PO DAILY NORM Last Admin: 04/13/17 08:00 Dose: 50 mg Metoprolol Succinate (Toprol Xl) 50 mg PO ONETIME ONE Stop: 04/13/17 09:12 Last Admin: 04/13/17 09:38 Dose: 50 mg Midazolam HCl (Versed 1 Mg/Ml) Confirm Administered Dose 2 mg .ROUTE .STK-MED ONE Stop: 04/10/17 17:22 Ondansetron HCl (Zofran) 4 mg IVPUSH Q4H PRN PRN Reason: Nausea Ondansetron HCl (Zofran) Confirm Administered Dose 4 mg .ROUTE .STK-MED ONE Stop: 04/10/17 17:22 Phenylephrine HCl (Phenylephrine In Ns 100 Mcg/Ml) Confirm Administered Dose 1 mg .ROUTE .STK-MED ONE Stop: 04/10/17 18:15 Potassium Chloride (Klor-Con M20) 40 meq PO ONETIME ONE Stop: 04/14/17 08:05 Last Admin: 04/14/17 08:17 Dose: 40 meq Potassium Chloride (Potassium Chloride) 40 meq PO ONETIME ONE Stop: 04/16/17 08:35 Last Admin: 04/16/17 09:11 Dose: 40 meq Potassium Chloride (Klor-Con M20) 40 meq PO ONETIME ONE Stop: 04/17/17 07:49 Last Admin: 04/17/17 08:20 Dose: 40 meq Rocuronium [place] (Zemuron) Confirm Administered Dose 100 mg .ROUTE .STK-MED ONE Stop: 04/10/17 17:22 Succinylcholine Chloride (Succinylcholine In Ns Pf) Confirm Administered Dose 200 mg .ROUTE .STK-MED ONE Stop: 04/10/17 17:22 - Exam Quality Assessment: DVT Prophylaxis General: Alert, Oriented, Cooperative, No Acute Distress HEENT: Pupils Equal, Pupils Reactive, EOMI, Mucous Membr. Moist/[place] Neck: Supple, Trachea Midline, No JVD Lungs: Clear to Auscultation, Normal Respiratory Effort Cardiovascular: Regular Rate, Irregular Rhythm GI/Abdominal Exam: Normal Bowel Sounds, Soft, Non-Tender, No Organomegaly, No Distention Back Exam: Normal Inspection Extremities: Normal Range of Motion, Non-Tender, Normal Capillary Refill, Pedal Edema (+1 pitting edema to ankles) Peripheral Pulses: 2+: Radial (L), Radial (R), Posterior Tibial (L), Posterior Tibial (R), Dorsalis Pedis (L), Dorsalis Pedis (R) Skin: Warm, Dry, Intact Wound/Incisions: Healing Well Neurological: No New Focal Deficit Psy/Mental Status: Alert, Normal Affect, Normal Mood - Problem List & Annotations (1) Septic shock SNOMED Code(s): 90772135 Code(s): A41.9 - SEPSIS, UNSPECIFIED ORGANISM; R65.21 - SEVERE SEPSIS WITH SEPTIC SHOCK Status: Resolved Priority: High Current Visit: Yes (2) Pulmonary embolism on left SNOMED Code(s): 80891386 Code(s): I26.99 - OTHER PULMONARY EMBOLISM WITHOUT ACUTE COR PULMONALE Status: Acute Priority: High Current Visit: Yes (3) Acute appendicitis with rupture SNOMED Code(s): 38869571 Code(s): K35.2 - ACUTE APPENDICITIS WITH GENERALIZED PERITONITIS Status: Resolved Priority: High Current Visit: Yes (4) Atrial fib/flutter, transient SNOMED Code(s): 655810978 Code(s): PBE3868 - Status: Acute Priority: High Current Visit: Yes (5) Coronary artery disease SNOMED Code(s): 23455254 Code(s): I25.10 - ATHSCL HEART DISEASE OF [place] CORONARY ARTERY W/O ANG PCTRS Status: Chronic Priority: Medium Current Visit: Yes Qualifiers: Coronary Disease-Associated Artery/Lesion type: unspecified vessel or lesion type [place] vs. transplanted heart: [place] heart Associated angina: without angina Qualified Code(s): I25.10 - Atherosclerotic heart disease of [place] coronary artery without angina pectoris (6) Diabetes 1.5, managed as type 2 SNOMED Code(s): 145409060 Code(s): E10.9 - TYPE 1 DIABETES MELLITUS WITHOUT COMPLICATIONS Status: Chronic Priority: Medium Current Visit: Yes - Problem List Review Problem List Initiated/Reviewed/Updated: Yes - My Orders Last 24 Hours: My Active Orders 04/16/17 09:00 Apixaban [Eliquis] 10 mg PO BID 04/16/17 10:30 Ramipril [Altace] 2.5 mg PO DAILY 04/17/17 07:29 Magnesium Sulfate/Water [Magnesium Sulfate 4 GM in Water 100 ML] 4 gm Premix Bag 1 bag IV ONETIME 04/18/17 05:11 BASIC METABOLIC PANEL,BMP [CHEM] AM CBC WITH AUTO DIFF [HEME] AM MAGNESIUM [CHEM] AM 04/19/17 05:11 BASIC METABOLIC PANEL,BMP [CHEM] AM CBC WITH AUTO DIFF [HEME] AM MAGNESIUM [CHEM] AM 04/20/17 05:11 BASIC METABOLIC PANEL,BMP [CHEM] AM CBC WITH AUTO DIFF [HEME] AM MAGNESIUM [CHEM] AM - Plan Plan:: 56 yo male admitted 04/10/17 for peritonitis/septic shock with perforated appendicitis with history of HTN, DM T2, and arrythmia with new segmental PE LLL . Diffuse peritonitis s/p exploratory appendectomy, secondary to Perforated Appendix: -On Levaquin and Metronidazole day 8 will plan to switch to oral tomorrow if continued improvement -surgery will remove scott while in house either 04/18 or 04/19 -continue Levaquin & Metronidazole Blood cultures negative x 5 days PE LLL: -recieved IV Heparin x 2 days with brief stop for 2 hrs so surgery could remove JADON. Was restarted after. -Heparin discountinued yesterday and Eliquis started 10 mg po BID x 4 more days then 5 mg PO BID Arrythmia, likely multifactorial etiology, resolved: -fluctuated bw Atrial fibrillation, Atral flutter & Sinus Tachycardia -as per EHR, patient had isolated incident of AF in 2011 that resolved -patient currently back in sinus with hr 70's-80's -echo completed, awaiting reading -on Toprol 100 mg QAM and Cardizem CD 360 mg QPM -[id number] score 2 -will continue Toprol and Cardizem CD -Target Mg over 2 and K over 4 -continue management as per cardio rec's HTN, controlled: -home regimen prior to admission was Toprol 50 mg QD and Ramipril 2.5 mg QD -on Toprol 100 mg QD restarted ramipril yesterday at 2.5 mg q day now that HR has stabilized. Hypomagnasemia: -Mg 4 mg IV x1 dose this am -repeat Mg in AM DM T2: -continue BG monitoring and ISS
--- NOTE | 2017-04-17 10:36 | PCM.SURGPN ---
- General Info Date of Service: 04/17/17 POD#: 7 Post-Op Diagnosis: Ruptured appendicitis Functional Status: Reports: Pain Controlled, Tolerating Diet, Ambulating. Denies: New Symptoms - Review of Systems General: Denies: Fever, Weakness, Fatigue, Malaise, Chills HEENT: Reports: No Symptoms Pulmonary: Denies: Shortness of Breath, Cough, Hemoptysis Cardiovascular: Denies: Chest Pain, Palpitations Gastrointestinal: Reports: Flatus. Denies: Abdominal Pain, Constipation, Decreased Appetite, Diarrhea, Difficulty Swallowing, Nausea, Vomiting Genitourinary: Reports: No Symptoms Musculoskeletal: Reports: No Symptoms Skin: Reports: No Symptoms Neurological: Reports: No Symptoms Psychiatric: Reports: No Symptoms - Patient Data Vitals - Most Recent: Last Vital Signs Temp 98.1 F 04/17/17 04:00 Pulse 84 04/17/17 08:24 Resp 22 H 04/17/17 08:00 BP 137/76 04/17/17 08:24 Pulse Ox 92 L 04/17/17 08:00 Weight - Most Recent: 253 lb 1.451 oz I&O - Last 24 Hours: Intake & Output 04/16/17 04/17/17 04/17/17 19:59 03:59 11:59 Intake Total 700 200 350 Output Total 1600 Balance 700 200 -1250 Lab Results Last 24 Hrs: Laboratory Results - last 24 hr 04/17/17 04/17/17 Range/Units 05:37 05:37 WBC 11.32 H (4.0-11.0) K/uL RBC 4.99 (4.50-5.90) M/uL Hgb 13.1 (13.0-17.0) g/dL Hct 40.9 (38.0-50.0) % MCV 82.0 (80.0-98.0) fL MCH 26.3 L (27.0-32.0) pg MCHC 32.0 (31.0-37.0) g/dL RDW Std Deviation 43.8 (28.0-62.0) fl RDW Coeff of Aureliano 15 (11.0-15.0) % Plt Count 264 (150-400) K/uL MPV 9.20 (7.40-12.00) fL Nucleated RBC % 0.0 /100WBC Nucleated RBCs # 0 K/uL Sodium 138 (136-146) mmol/L Potassium 3.8 (3.5-5.1) mmol/L Chloride 105 (98-110) mmol/L Carbon Dioxide 23 (21-31) mmol/L BUN 14 (6.0-23.0) mg/dL Creatinine 0.9 (0.6-1.5) mg/dL Est Cr Clr Drug Dosing 99.53 mL/min Estimated GFR (MDRD) > 60.0 ml/min Glucose 116 H (60-110) mg/dL Calcium 8.9 (8.8-10.8) mg/dL Magnesium 1.7 (1.5-2.3) mEq/L Med Orders - Current: Current Medications Apixaban (Eliquis) 10 mg PO BID [facility] Last Admin: 04/17/17 08:24 Dose: 10 mg Diltiazem HCl (Diltiazem) 0 mg IVPUSH Q1H PRN; Protocol PRN Reason: Arrhythmia Last Admin: 04/12/17 13:04 Dose: 5 mg Diltiazem HCl (Cardizem Cd) 360 mg PO Q24H [facility] Last Admin: 04/16/17 22:11 Dose: 360 mg Famotidine (Pepcid) 20 mg IVPUSH BID [facility] Last Admin: 04/17/17 08:24 Dose: 20 mg Levofloxacin/Dextrose 750 mg/ (Premix) 150 mls @ 100 mls/hr IV Q24H [facility] Last Admin: 04/16/17 17:51 Dose: Not Given Metronidazole 500 mg/ Premix 100 mls @ 100 mls/hr IV Q8H [facility] Last Admin: 04/17/17 08:38 Dose: 100 mls/hr Diltiazem HCl 100 mg/ Sodium (Chloride) 100 mls @ 5 mls/hr IV TITRATE NORM; 5 MG /HR PRN Reason: Protocol Last Titration: 04/13/17 02:05 Dose: 5 mg/hr, 5 mls/hr Magnesium Sulfate 4 gm/ Premix 100 mls @ 25 mls/hr IV ONETIME ONE Stop: 04/17/17 11:28 Last Admin: 04/17/17 08:25 Dose: 25 mls/hr Insulin Aspart (Novolog) 0 unit SUBCUT TIDAC [facility] PRN Reason: Protocol Last Admin: 04/17/17 06:56 Dose: Not Given Metoclopramide HCl (Reglan) 10 mg IVPUSH Q6H [facility] Last Admin: 04/17/17 08:24 Dose: 10 mg Metoprolol Succinate (Toprol Xl) 100 mg PO DAILY [facility] Last Admin: 04/17/17 08:24 Dose: 100 mg Morphine Sulfate (Morphine) 2 mg IVPUSH Q2H PRN PRN Reason: Pain Last Admin: 04/11/17 21:32 Dose: 2 mg Morphine Sulfate (Morphine) 0 mg IVPUSH Q1H PRN PRN Reason: Pain (severe 7-10) Ondansetron HCl (Zofran) 4 mg IVPUSH Q6H PRN PRN Reason: Nausea/Vomiting Ramipril (Altace) 2.5 mg PO DAILY [facility] Last Admin: 04/17/17 08:20 Dose: 2.5 mg Discontinued Medications Bupivacaine HCl (Marcaine 0.5%) Confirm Administered Dose 30 ml .ROUTE .STK-MED ONE Stop: 04/10/17 17:34 Cefazolin Sodium (Ancef) Confirm Administered Dose 1 gm .ROUTE .STK-MED ONE Stop: 04/10/17 17:34 Digoxin (Lanoxin) 250 mcg IVPUSH ONETIME ONE Stop: 04/11/17 15:00 Last Admin: 04/11/17 19:41 Dose: Not Given Digoxin (Lanoxin) Confirm Administered Dose 500 mcg .ROUTE .STK-MED ONE Stop: 04/11/17 15:26 Last Admin: 04/11/17 19:41 Dose: Not Given Digoxin (Lanoxin) 250 mcg IVPUSH ONETIME ONE Stop: 04/11/17 18:39 Last Admin: 04/11/17 19:45 Dose: 250 mcg Diltiazem HCl (Diltiazem) 20 mg IVPUSH ONETIME ONE Stop: 04/11/17 20:50 Last Admin: 04/11/17 21:05 Dose: 20 mg Diltiazem HCl (Diltiazem) 20 mg IVPUSH ONETIME ONE Stop: 04/11/17 22:20 Last Admin: 04/11/17 22:36 Dose: 20 mg Diltiazem HCl (Diltiazem) Confirm Administered Dose 25 mg .ROUTE .STK-MED ONE Stop: 04/11/17 22:36 Last Admin: 04/11/17 22:42 Dose: Not Given Diltiazem HCl (Diltiazem) Confirm Administered Dose 25 mg .ROUTE .STK-MED ONE Stop: 04/12/17 09:02 Last Admin: 04/12/17 09:07 Dose: 5 mg Diltiazem HCl (Cardizem) 30 mg PO Q6HR [facility] Last Admin: 04/13/17 17:44 Dose: 30 mg Diltiazem HCl (Cardizem) 30 mg PO ONETIME ONE Stop: 04/13/17 18:50 Last Admin: 04/13/17 18:55 Dose: 30 mg Diltiazem HCl (Cardizem) 60 mg PO Q6HR [facility] Last Admin: 04/14/17 07:29 Dose: 60 mg Diltiazem HCl (Cardizem) 30 mg PO ONETIME ONE Stop: 04/14/17 08:44 Last Admin: 04/14/17 08:49 Dose: 30 mg Diltiazem HCl (Cardizem) 90 mg PO Q6HR NORM Stop: 04/14/17 18:00 Last Admin: 04/14/17 17:19 Dose: 90 mg Etomidate (Amidate) Confirm Administered Dose 40 mg IVPUSH .STK-MED ONE Stop: 04/10/17 17:22 Fentanyl (Sublimaze) Confirm Administered Dose 250 mcg .ROUTE .STK-MED ONE Stop: 04/10/17 17:22 Heparin Sodium (Porcine) (Heparin Sodium) Confirm Administered Dose 5,000 units .ROUTE .STK-MED ONE Stop: 04/11/17 12:51 Last Admin: 04/11/17 19:41 Dose: Not Given Heparin Sodium (Porcine) (Heparin Sodium) 5,000 units SUBCUT Q8H [facility] Last Admin: 04/14/17 13:44 Dose: 5,000 units Heparin Sodium (Porcine) (Heparin Sodium) 0 units IVPUSH ASDIRECTED PRN; Protocol PRN Reason: see heparin protocol Last Admin: 04/15/17 23:12 Dose: 1,500 units Metronidazole 500 mg/ Premix 100 mls @ 100 mls/hr IV Q8H [facility] Last Admin: 04/10/17 17:47 Dose: Not Given Sodium Chloride (Normal Saline) 500 mls @ 1,000 mls/hr IV .BOLUS [facility] Last Admin: 04/10/17 15:45 Dose: 1,000 mls/hr Sodium Chloride (Normal Saline) 1,000 mls @ 125 mls/hr IV ASDIRECTED NORM Last Admin: 04/10/17 22:48 Dose: 150 mls/hr Dopamine HCl/Dextrose (Dopamine In D5w 400 Mg/250 Ml) 400 mg in 250 mls @ 8.67 mls/hr IV TITRATE NORM; 2 MCG/KG/MIN PRN Reason: Protocol Norepinephrine Bitartrate (Norepinephr-0.9% Nacl 4 Mg/250) 4 mg in 250 mls @ 7.5 mls/hr IV TITRATE NORM; 2 MCG/MIN PRN Reason: Protocol Last Titration: 04/11/17 04:39 Dose: 3 mcg/min, 11.25 mls/hr Vasopressin 100 units/ Sodium (Chloride) 100 mls @ 0 mls/hr IV TITRATE NORM; Per Protocol PRN Reason: Protocol Last Titration: 04/11/17 20:30 Dose: 0 units/min, 0 mls/hr Sodium Chloride (Normal Saline) Confirm Administered Dose 20 mls @ as directed .ROUTE .STK-MED ONE Stop: 04/10/17 17:24 Sodium Chloride (Normal Saline) 500 mls @ 999 mls/hr IV .BOLUS NORM Last Admin: 04/10/17 18:11 Dose: Not Given Acetaminophen (Ofirmev) Confirm Administered Dose 100 mls @ as directed IV .STK- MED ONE Stop: 04/10/17 19:13 Lactated Ringer's (Ringers, Lactated) 1,000 mls @ 175 mls/hr IV ASDIRECTED NORM Stop: 04/11/17 00:08 Sodium Chloride (Normal Saline) 1,000 mls @ 150 mls/hr IV ASDIRECTED NORM Last Infusion: 04/11/17 23:15 Dose: 75 mls/hr Magnesium Sulfate (Magnesium Sulfate 2 Gm In Water 50 Ml) Confirm Administered Dose 50 mls @ as directed .ROUTE .STK-MED ONE Stop: 04/11/17 12:51 Last Admin: 04/11/17 19:41 Dose: Not Given Sodium Chloride (Normal Saline) Confirm Administered Dose 100 mls @ as directed .ROUTE .STK-MED ONE Stop: 04/11/17 22:26 Last Admin: 04/11/17 22:29 Dose: Not Given Sodium Chloride (Normal Saline) 1,000 mls @ 75 mls/hr IV ASDIRECTED NORM Last Admin: 04/13/17 21:06 Dose: 75 mls/hr Magnesium Sulfate 4 gm/ Premix 100 mls @ 50 mls/hr IV ONETIME ONE Stop: 04/13/17 11:26 Last Admin: 04/13/17 09:39 Dose: 50 mls/hr Magnesium Sulfate 4 gm/ Premix 100 mls @ 50 mls/hr IV ONETIME ONE Stop: 04/13/17 13:29 Last Admin: 04/13/17 11:37 Dose: 50 mls/hr Magnesium Sulfate 4 gm/ Premix 100 mls @ 50 mls/hr IV ONETIME ONE Stop: 04/14/17 10:04 Last Admin: 04/14/17 08:17 Dose: 50 mls/hr Heparin Sod,Pork In 0.45% Nacl (Heparin-1/2ns 25,000 Units/500) 25,000 unit in 500 mls @ 26 mls/hr IV TITRATE NORM PRN Reason: Protocol Last Admin: 04/16/17 05:24 Dose: 19 units/kg/hr, 44.84 mls/hr Magnesium Sulfate 4 gm/ Premix 100 mls @ 50 mls/hr IV ONETIME ONE Stop: 04/15/17 12:29 Last Admin: 04/15/17 11:50 Dose: 50 mls/hr Magnesium Sulfate 4 gm/ Premix 100 mls @ 25 mls/hr IV ONETIME ONE Stop: 04/16/17 11:40 Last Admin: 04/16/17 09:10 Dose: 25 mls/hr Magnesium Sulfate 4 gm/ Premix 100 mls @ 25 mls/hr IV ONETIME ONE Stop: 04/16/17 22:59 Last Admin: 04/16/17 18:37 Dose: 25 mls/hr Insulin Aspart (Novolog) 0 unit SUBCUT Q6H NORM PRN Reason: Protocol Last Admin: 04/12/17 06:55 Dose: Not Given Iopamidol (Isovue-370 (76%)) 100 ml IV ONETIME STA Stop: 04/14/17 16:47 Last Admin: 04/14/17 16:47 Dose: 100 ml Ketamine HCl (Ketalar) Confirm Administered Dose 500 mg .ROUTE .STK-MED ONE Stop: 04/10/17 17:22 Lidocaine (Xylocaine-Mpf 2%) Confirm Administered Dose 5 ml .ROUTE .STK-MED ONE Stop: 04/10/17 17:22 Lorazepam (Ativan) 1 mg IVPUSH ONETIME ONE Stop: 04/11/17 22:19 Last Admin: 04/11/17 22:26 Dose: 1 mg Metoprolol Succinate (Toprol Xl) 50 mg PO DAILY [facility] Last Admin: 04/13/17 08:00 Dose: 50 mg Metoprolol Succinate (Toprol Xl) 50 mg PO ONETIME ONE Stop: 04/13/17 09:12 Last Admin: 04/13/17 09:38 Dose: 50 mg Midazolam HCl (Versed 1 Mg/Ml) Confirm Administered Dose 2 mg .ROUTE .STK-MED ONE Stop: 04/10/17 17:22 Ondansetron HCl (Zofran) 4 mg IVPUSH Q4H PRN PRN Reason: Nausea Ondansetron HCl (Zofran) Confirm Administered Dose 4 mg .ROUTE .STK-MED ONE Stop: 04/10/17 17:22 Phenylephrine HCl (Phenylephrine In Ns 100 Mcg/Ml) Confirm Administered Dose 1 mg .ROUTE .STK-MED ONE Stop: 04/10/17 18:15 Potassium Chloride (Klor-Con M20) 40 meq PO ONETIME ONE Stop: 04/14/17 08:05 Last Admin: 04/14/17 08:17 Dose: 40 meq Potassium Chloride (Potassium Chloride) 40 meq PO ONETIME ONE Stop: 04/16/17 08:35 Last Admin: 04/16/17 09:11 Dose: 40 meq Potassium Chloride (Klor-Con M20) 40 meq PO ONETIME ONE Stop: 04/17/17 07:49 Last Admin: 04/17/17 08:20 Dose: 40 meq Rocuronium [place] (Zemuron) Confirm Administered Dose 100 mg .ROUTE .STK-MED ONE Stop: 04/10/17 17:22 Succinylcholine Chloride (Succinylcholine In Ns Pf) Confirm Administered Dose 200 mg .ROUTE .STK-MED ONE Stop: 04/10/17 17:22 - Exam Wound/Incisions: Healing Well, Dressing Dry and Intact Quality Assessment: DVT Prophylaxis. No: Supplemental Oxygen, Central Line/PICC , Urine Catheter General: Alert, Oriented, Cooperative, No Acute Distress HEENT: Pupils Equal, Pupils Reactive. No: Scleral Icterus Neck: Supple Lungs: Clear to Auscultation, Normal Respiratory Effort Cardiovascular: Regular Rate GI/Abdominal Exam: Normal Bowel Sounds, Soft, Non-Tender Extremities: Normal Inspection Skin: Warm, Dry, Intact Neurological: No New Focal Deficit Psy/Mental Status: Alert, Normal Affect, Normal Mood - Problem List & Annotations (1) Acute appendicitis with rupture SNOMED Code(s): 80342144 Code(s): K35.2 - ACUTE APPENDICITIS WITH GENERALIZED PERITONITIS Status: Acute Priority: High Current Visit: Yes (2) Acute kidney injury (nontraumatic) SNOMED Code(s): 56423556 Code(s): N17.9 - ACUTE KIDNEY FAILURE, UNSPECIFIED Status: Acute Priority : High Current Visit: Yes (3) Diabetes 1.5, managed as type 2 SNOMED Code(s): 395826945 Code(s): E10.9 - TYPE 1 DIABETES MELLITUS WITHOUT COMPLICATIONS Status: Chronic Priority: Medium Current Visit: Yes (4) Coronary artery disease SNOMED Code(s): 21749567 Code(s): I25.10 - ATHSCL HEART DISEASE OF [place] CORONARY ARTERY W/O ANG PCTRS Status: Chronic Priority: Medium Current Visit: Yes Qualifiers: Coronary Disease-Associated Artery/Lesion type: unspecified vessel or lesion type [place] vs. 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 SNOMED Code(s): 3988521 Code(s): I25.2 - OLD MYOCARDIAL INFARCTION Status: Acute Priority: Medium Current Visit: Yes (6) Pulmonary embolism on left SNOMED Code(s): 78134705 Code(s): I26.99 - OTHER PULMONARY EMBOLISM WITHOUT ACUTE COR [place] Status: Acute Priority: High Current Visit: Yes - Problem List Review Problem List Initiated/Reviewed/Updated: Yes - My Orders Last 24 Hours: Active Orders 24 hr Category Date Time Status BASIC METABOLIC PANEL,BMP [CHEM] AM Lab 04/18/17 05:11 Ordered BASIC METABOLIC PANEL,BMP [CHEM] AM Lab 04/19/17 05:11 Ordered BASIC METABOLIC PANEL,BMP [CHEM] AM Lab 04/20/17 05:11 Ordered CBC WITH AUTO DIFF [HEME] AM Lab 04/18/17 05:11 Ordered CBC WITH AUTO DIFF [HEME] AM Lab 04/19/17 05:11 Ordered CBC WITH AUTO DIFF [HEME] AM Lab 04/20/17 05:11 Ordered MAGNESIUM [CHEM] AM Lab 04/18/17 05:11 Ordered MAGNESIUM [CHEM] AM Lab 04/19/17 05:11 Ordered MAGNESIUM [CHEM] AM Lab 04/20/17 05:11 Ordered Magnesium Sulfate/Water [Magnesium Sulfate 4 GM in Med 04/17/17 07:29 Active Water 100 ML] 4 gm Premix Bag 1 bag IV ONETIME Ramipril [Altace] Med 04/16/17 10:30 Active 2.5 mg PO DAILY Medication Orders Apixaban (Eliquis) 10 mg PO BID [facility] Last Admin: 04/17/17 08:24 Dose: 10 mg Admin: 04/16/17 20:15 Dose: 10 mg Admin: 04/16/17 10:09 Dose: 10 mg Diltiazem HCl (Diltiazem) 0 mg IVPUSH Q1H PRN; Protocol PRN Reason: Arrhythmia Last Admin: 04/12/17 13:04 Dose: 5 mg Diltiazem HCl (Cardizem Cd) 360 mg PO Q24H [facility] Last Admin: 04/16/17 22:11 Dose: 360 mg Admin: 04/15/17 22:47 Dose: 360 mg Admin: 04/14/17 22:52 Dose: 360 mg Famotidine (Pepcid) 20 mg IVPUSH BID [facility] Last Admin: 04/17/17 08:24 Dose: 20 mg Admin: 04/16/17 20:15 Dose: 20 mg Admin: 04/16/17 09:11 Dose: 20 mg Admin: 04/15/17 21:48 Dose: 20 mg Admin: 04/15/17 10:33 Dose: 20 mg Admin: 04/14/17 20:14 Dose: 20 mg Admin: 04/14/17 08:00 Dose: 20 mg Admin: 04/13/17 20:00 Dose: 20 mg Admin: 04/13/17 08:00 Dose: 20 mg Admin: 04/12/17 20:01 Dose: 20 mg Admin: 04/12/17 08:32 Dose: 20 mg Levofloxacin/Dextrose 750 mg/ (Premix) 150 mls @ 100 mls/hr IV Q24H [facility] Last Admin: 04/16/17 17:51 Dose: Not Given Admin: 04/15/17 13:58 Dose: 100 mls/hr Infusion: 04/14/17 15:14 Dose: 100 mls/hr Admin: 04/14/17 13:44 Dose: 100 mls/hr Infusion: 04/13/17 15:17 Dose: 100 mls/hr Admin: 04/13/17 13:47 Dose: 100 mls/hr Infusion: 04/12/17 15:06 Dose: 100 mls/hr Admin: 04/12/17 13:36 Dose: 100 mls/hr Admin: 04/11/17 14:50 Dose: Infusion: 04/10/17 17:10 Dose: 100 mls/hr Admin: 04/10/17 15:40 Dose: 100 mls/hr Metronidazole 500 mg/ Premix 100 mls @ 100 mls/hr IV Q8H [facility] Last Admin: 04/17/17 08:38 Dose: 100 mls/hr Infusion: 04/17/17 01:59 Dose: 100 mls/hr Admin: 04/17/17 00:59 Dose: 100 mls/hr Infusion: 04/16/17 18:52 Dose: 100 mls/hr Admin: 04/16/17 17:52 Dose: 100 mls/hr Infusion: 04/16/17 10:11 Dose: 100 mls/hr Admin: 04/16/17 09:11 Dose: 100 mls/hr Infusion: 04/16/17 01:39 Dose: 100 mls/hr Admin: 04/16/17 00:39 Dose: 100 mls/hr Infusion: 04/15/17 17:30 Dose: 100 mls/hr Admin: 04/15/17 16:30 Dose: 100 mls/hr Infusion: 04/15/17 11:34 Dose: 100 mls/hr Admin: 04/15/17 10:34 Dose: 100 mls/hr Infusion: 04/15/17 02:24 Dose: 100 mls/hr Admin: 04/15/17 01:24 Dose: 100 mls/hr Infusion: 04/14/17 18:19 Dose: 100 mls/hr Admin: 04/14/17 17:19 Dose: 100 mls/hr Infusion: 04/14/17 10:39 Dose: 100 mls/hr Admin: 04/14/17 09:39 Dose: 100 mls/hr Infusion: 04/14/17 03:03 Dose: 100 mls/hr Admin: 04/14/17 02:03 Dose: 100 mls/hr Infusion: 04/13/17 17:30 Dose: 100 mls/hr Admin: 04/13/17 16:30 Dose: 100 mls/hr Infusion: 04/13/17 09:49 Dose: 100 mls/hr Admin: 04/13/17 08:49 Dose: 100 mls/hr Infusion: 04/13/17 01:37 Dose: 100 mls/hr Admin: 04/13/17 00:37 Dose: 100 mls/hr Infusion: 04/12/17 19:09 Dose: 100 mls/hr Admin: 04/12/17 18:09 Dose: 100 mls/hr Infusion: 04/12/17 09:32 Dose: 100 mls/hr Admin: 04/12/17 08:32 Dose: 100 mls/hr Infusion: 04/12/17 01:34 Dose: 100 mls/hr Admin: 04/12/17 00:34 Dose: 100 mls/hr Infusion: 04/11/17 18:55 Dose: 100 mls/hr Admin: 04/11/17 17:55 Dose: 100 mls/hr Admin: 04/11/17 14:49 Dose: Infusion: 04/11/17 01:58 Dose: 100 mls/hr Admin: 04/11/17 00:58 Dose: 100 mls/hr Infusion: 04/10/17 18:09 Dose: 100 mls/hr Admin: 04/10/17 17:09 Dose: 100 mls/hr Diltiazem HCl 100 mg/ Sodium (Chloride) 100 mls @ 5 mls/hr IV TITRATE NORM; 5 MG /HR PRN Reason: Protocol Last Titration: 04/13/17 02:05 Dose: 5 mg/hr, 5 mls/hr Titration: 04/13/17 01:06 Dose: 10 mg/hr, 10 mls/hr Admin: 04/12/17 19:42 Dose: 15 mg/hr, 15 mls/hr Titration: 04/12/17 19:41 Dose: 15 mg/hr, 15 mls/hr Admin: 04/12/17 13:00 Dose: 15 mg/hr, 15 mls/hr Titration: 04/12/17 13:00 Dose: 15 mg/hr, 15 mls/hr Titration: 04/12/17 12:00 Dose: 15 mg/hr, 15 mls/hr Titration: 04/12/17 11:05 Dose: 10 mg/hr, 10 mls/hr Titration: 04/12/17 08:58 Dose: 15 mg/hr, 15 mls/hr Titration: 04/12/17 08:31 Dose: 10 mg/hr, 10 mls/hr Titration: 04/12/17 05:15 Dose: 5 mg/hr, 5 mls/hr Admin: 04/12/17 03:48 Dose: 10 mg/hr, 10 mls/hr Titration: 04/12/17 03:48 Dose: 15 mg/hr, 15 mls/hr Titration: 04/11/17 22:35 Dose: 15 mg/hr, 15 mls/hr Titration: 04/11/17 22:15 Dose: 10 mg/hr, 10 mls/hr Admin: 04/11/17 21:41 Dose: 5 mg/hr, 5 mls/hr Magnesium Sulfate 4 gm/ Premix 100 mls @ 25 mls/hr IV ONETIME ONE Stop: 04/17/17 11:28 Last Admin: 04/17/17 08:25 Dose: 25 mls/hr Insulin Aspart (Novolog) [facility] PRN Reason: Protocol Last Admin: 04/17/17 06:56 Dose: Not Given Admin: 04/16/17 17:51 Dose: Not Given Admin: 04/16/17 17:51 Dose: Not Given Admin: 04/16/17 08:25 Dose: Not Given Admin: 04/15/17 16:44 Dose: Not Given Admin: 04/15/17 11:57 Dose: Not Given Admin: 04/15/17 07:58 Dose: Not Given Admin: 04/14/17 17:29 Dose: Not Given Admin: 04/14/17 11:27 Dose: Not Given Admin: 04/14/17 06:39 Dose: Not Given Admin: 04/13/17 16:29 Dose: Not Given Admin: 04/13/17 10:58 Dose: 2 units Admin: 04/13/17 06:34 Dose: Not Given Admin: 04/12/17 17:29 Dose: Not Given Admin: 04/12/17 12:57 Dose: Not Given Metoclopramide HCl (Reglan) 10 mg IVPUSH Q6H NORM Last Admin: 04/17/17 08:24 Dose: 10 mg Admin: 04/17/17 01:00 Dose: 10 mg Admin: 04/16/17 20:15 Dose: 10 mg Admin: 04/16/17 17:51 Dose: Not Given Admin: 04/16/17 09:11 Dose: 10 mg Admin: 04/16/17 01:16 Dose: 10 mg Admin: 04/15/17 20:13 Dose: 10 mg Admin: 04/15/17 13:58 Dose: 10 mg Admin: 04/15/17 10:34 Dose: 10 mg Admin: 04/15/17 01:23 Dose: 10 mg Admin: 04/14/17 20:03 Dose: 10 mg Admin: 04/14/17 13:44 Dose: 10 mg Admin: 04/14/17 07:54 Dose: 10 mg Admin: 04/14/17 02:04 Dose: 10 mg Admin: 04/13/17 19:59 Dose: 10 mg Admin: 04/13/17 13:48 Dose: 10 mg Admin: 04/13/17 07:59 Dose: 10 mg Admin: 04/13/17 03:00 Dose: 10 mg Admin: 04/12/17 19:46 Dose: 10 mg Admin: 04/12/17 13:36 Dose: 10 mg Admin: 04/12/17 08:32 Dose: 10 mg Admin: 04/12/17 03:03 Dose: 10 mg Admin: 04/11/17 21:05 Dose: 10 mg Admin: 04/11/17 14:49 Dose: Admin: 04/11/17 14:49 Dose: Admin: 04/11/17 02:34 Dose: 10 mg Admin: 04/10/17 22:33 Dose: 10 mg Metoprolol Succinate (Toprol Xl) 100 mg PO DAILY [facility] Last Admin: 04/17/17 08:24 Dose: 100 mg Admin: 04/16/17 09:11 Dose: 100 mg Admin: 04/15/17 10:34 Dose: 100 mg Admin: 04/14/17 08:01 Dose: 100 mg Morphine Sulfate (Morphine) 2 mg IVPUSH Q2H PRN PRN Reason: Pain Last Admin: 04/11/17 21:32 Dose: 2 mg Admin: 04/11/17 01:22 Dose: 2 mg Admin: 04/10/17 23:06 Dose: 2 mg Morphine Sulfate (Morphine) 0 mg IVPUSH Q1H PRN PRN Reason: Pain (severe 7-10) Ondansetron HCl (Zofran) 4 mg IVPUSH Q6H PRN PRN Reason: Nausea/Vomiting Ramipril (Altace) 2.5 mg PO DAILY NORM Last Admin: 04/17/17 08:20 Dose: 2.5 mg Admin: 04/16/17 11:02 Dose: 2.5 mg - Assessment Assessment (Free Text/Narrative):: Patient continues to show steady improvement. Tolerating po diet. Ambulating. No chest pain or shortness of breath. - Plan Plan (Free Text/Narrative):: Will remove scott tomorrow or Monday just prior to discharge.
[2017-04-17] MEDS: Levofloxacin/Dextrose 5%-Water 750 MG in Premix Bag 1 BAG IV SCH (14:34)
[2017-04-17] MEDS: Diltiazem 180 MG Cap.CD PO SCH (23:02)
[2017-04-18] MEDS: metroNIDAZOLE/Normal Saline 500 MG in Premix Bag 1 BAG IV SCH ×2 (00:42→08:34)
[2017-04-18 05:44] LABS: CHLORIDE,CL 104 mmol/L (98-110); SODIUM,NA 139 mmol/L (136-146)
[2017-04-18] MEDS: Insulin Aspart 100 Units/ML 3 ML Pen SUBCUT SCH ×2 (07:27→12:47)
[2017-04-18] MEDS: Famotidine 20 MG/2 ML SDV IVPUSH SCH (08:31)
[2017-04-18] MEDS: Metoprolol Succinate 100 MG Tab.ER PO SCH (08:31)
[2017-04-18] MEDS: Apixaban 5 MG Tab PO SCH (08:31)
--- NOTE | 2017-04-18 11:24 | PCM.DCSUM1 ---
Discharge Summary - Hospital Course Free Text/Narrative:: Admission: 04/10/17 Discharge: 04/18/17 56 yo male admitted 04/10/17 for peritonitis/septic shock with perforated appendicitis with history of HTN, DM T2, and arrythmia with new segmental PE LLL 1. Diffuse peritonitis s/p exploratory appendectomy, secondary to Perforated Appendix: -staple removed by surgery day of discharge -Discharged home on PO Levaquin and Metronidazole -f/u with general surgery in 4 weeks -no lifting over 25 lbs for 6 weeks 2. PE LLL: -discharged home on Eliquis 10 mg PO BID for 3 days -on 04/21/17 patient to [facility] to Eliquis 5 mg BID -f/u with Dr. Bernstein PCP 3. Arrythmia, likely multifactorial etiology -fluctuated bw Atrial fibrillation, Atral flutter & Sinus Tachycardia -as per EHR, patient had isolated incident of AF in 2011 that resolved -HR controlled 80-100 -increased home Toprol from 50 mg to 100 mg QAM -also discharged on Cardizem CD 360 mg QPM -[id number] score 2 - on Eliquis -Echo obtained - no abnormalities, LVEF 55% -f/u with Dr. Lee, Cardiology 4. HTN, controlled: -home regimen prior to admission was Toprol 50 mg QD and Ramipril 2.5 mg QD -resume ramipril 2.5 mg QD. toprol increased to 100 mg BID -f/u with PCP 5. DM T2: -continue home medications -f/u with PCP Consults: 1. Cardiology - Dr. Lee 2. General Surgery - Dr. Villatoro Procedures: Exploratory Appendectomy - Discharge Data Discharge Date: 04/18/17 Discharge Disposition: Home, Self-Care 01 Condition: Critical - Patient Summary/Data Operative Procedure(s) Performed: Laparoscopic appendectomy Consults: Consultations 04/14/17 09:16 Consult to Physician [CONS] Routine - Discharge Plan Prescriptions/Med Rec: Apixaban [Eliquis] 2 tab PO BID 3 Days #10 tablet Apixaban [Eliquis] 5 mg PO BID 30 Days #60 tablet Diltiazem [Cardizem CD] 360 mg PO Q24H 30 Days #30 cap.cd Levofloxacin [Levaquin] 750 mg PO Q24H 5 Days #4 tablet Metoprolol Succinate [Toprol XL] 100 mg PO DAILY 30 Days #30 tab.er metroNIDAZOLE 500 mg PO Q8H 5 Days #30 tablet Home Medications: Home Meds Aspirin [Renee Chewable Aspirin] 1 tab PO DAILY 01/12/14 [History] metFORMIN [Glucophage] 1,000 mg PO QAM 01/12/14 [History] Ramipril [Altace] 2.5 mg PO DAILY 02/04/17 [History] Dulaglutide [Trulicity] 1.5 mg SQ WEEKLY 04/10/17 [History] Empagliflozin/Linagliptin [Glyxambi 25 mg-5 mg Tablet] 1 tab PO QAM 04/10/17 [ History] Hydrocodone/Acetaminophen [[place] 5-325] 1 tab PO Q6HR PRN 04/10/17 [History] Apixaban [Eliquis] 2 tab PO BID 3 Days #10 tablet 04/18/17 [Rx] Apixaban [Eliquis] 5 mg PO BID 30 Days #60 tablet 04/18/17 [Rx] Diltiazem [Cardizem CD] 360 mg PO Q24H 30 Days #30 cap.cd 04/18/17 [Rx] Levofloxacin [Levaquin] 750 mg PO Q24H 5 Days #4 tablet 04/18/17 [Rx] Metoprolol Succinate [Toprol XL] 100 mg PO DAILY 30 Days #30 tab.er 04/18/17 [Rx ] metroNIDAZOLE 500 mg PO Q8H 5 Days #30 tablet 04/18/17 [Rx] Patient Handouts: Laparoscopic Appendectomy, Adult, Care After, [id number] Referrals: Andrey Villatoro MD [Physician] - 05/18/17 1:45 pm Power Lee MD [Physician] - 04/26/17 9:30 am Norris Bernstein MD [Primary Care Provider] - 04/25/17 9:00 am - General Info Subjective Update: Up and ambulating this am, Continuing to feel improved. Having gas and bowel movements. Slept well, eating and eliminating without difficulty. Functional Status: Reports: Pain Controlled - Review of Systems General: Reports: No Symptoms HEENT: Reports: No Symptoms Pulmonary: Reports: No Symptoms Cardiovascular: Reports: No Symptoms Gastrointestinal: Reports: No Symptoms Genitourinary: Reports: No Symptoms Musculoskeletal: Reports: No Symptoms Skin: Reports: No Symptoms Neurological: Reports: No Symptoms Psychiatric: Reports: No Symptoms - Patient Data Vitals - Most Recent: Last Vital Signs Temp 36.6 C 04/18/17 08:00 Pulse 82 04/18/17 08:31 Resp 16 04/18/17 08:00 BP 102/69 04/18/17 08:31 Pulse Ox 93 L 04/18/17 08:00 Weight - Most Recent: 113.353 kg I&O - Last 24 hours: Intake & Output 04/17/17 04/18/17 04/18/17 22:59 06:59 14:59 Intake Total 760 1115 100 Output Total 375 1550 Balance 385 -435 100 Lab Results - Last 24 hrs: Laboratory Results - last 24 hr 04/16/17 04/16/17 04/16/17 Range/Units 05:03 11:04 16:56 WBC (4.0-11.0) K/uL RBC (4.50-5.90) M/uL Hgb (13.0-17.0) g/dL Hct (38.0-50.0) % MCV (80.0-98.0) fL MCH (27.0-32.0) pg MCHC (31.0-37.0) g/dL RDW Std Deviation (28.0-62.0) fl RDW Coeff of Aureliano (11.0-15.0) % Plt Count (150-400) K/uL MPV (7.40-12.00) fL Add Manual Diff Neutrophils % (Manual) (48.0-80.0) % Band Neutrophils % % Lymphocytes % (Manual) (16.0-40.0) % Monocytes % (Manual) (0.0-15.0) % Eosinophils % (Manual) (0.0-7.0) % Nucleated RBC % /100WBC Absolute Seg Neuts (1.4-5.7) Band Neutrophils # Lymphocytes # (Manual) (0.6-2.4) Monocytes # (Manual) (0.0-0.8) Eosinophils # (Manual) (0.0-0.7) Nucleated RBCs # K/uL Sodium (136-146) mmol/L Potassium (3.5-5.1) mmol/L Chloride (98-110) mmol/L Carbon Dioxide (21-31) mmol/L BUN (6.0-23.0) mg/dL Creatinine (0.6-1.5) mg/dL Est Cr Clr Drug Dosing mL/min Estimated GFR (MDRD) ml/min Glucose (60-110) mg/dL POC Glucose 121 H 141 H 127 H (60-110) mg/dL Calcium (8.8-10.8) mg/dL Magnesium (1.5-2.3) mEq/L 04/17/17 04/17/17 04/17/17 Range/Units 05:36 11:38 16:13 WBC (4.0-11.0) K/uL RBC (4.50-5.90) M/uL Hgb (13.0-17.0) g/dL Hct (38.0-50.0) % MCV (80.0-98.0) fL MCH (27.0-32.0) pg MCHC (31.0-37.0) g/dL RDW Std Deviation (28.0-62.0) fl RDW Coeff of Aureliano (11.0-15.0) % Plt Count (150-400) K/uL MPV (7.40-12.00) fL Add Manual Diff Neutrophils % (Manual) (48.0-80.0) % Band Neutrophils % % Lymphocytes % (Manual) (16.0-40.0) % Monocytes % (Manual) (0.0-15.0) % Eosinophils % (Manual) (0.0-7.0) % Nucleated RBC % /100WBC Absolute Seg Neuts (1.4-5.7) Band Neutrophils # Lymphocytes # (Manual) (0.6-2.4) Monocytes # (Manual) (0.0-0.8) Eosinophils # (Manual) (0.0-0.7) Nucleated RBCs # K/uL Sodium (136-146) mmol/L Potassium (3.5-5.1) mmol/L Chloride (98-110) mmol/L Carbon Dioxide (21-31) mmol/L BUN (6.0-23.0) mg/dL Creatinine (0.6-1.5) mg/dL Est Cr Clr Drug Dosing mL/min Estimated GFR (MDRD) ml/min Glucose (60-110) mg/dL POC Glucose 110 107 127 H (60-110) mg/dL Calcium (8.8-10.8) mg/dL Magnesium (1.5-2.3) mEq/L 04/18/17 04/18/17 04/18/17 Range/Units 05:02 05:02 05:59 WBC 10.68 (4.0-11.0) K/uL RBC 5.16 (4.50-5.90) M/uL Hgb 13.5 (13.0-17.0) g/dL Hct 42.6 (38.0-50.0) % MCV 82.6 (80.0-98.0) fL MCH 26.2 L (27.0-32.0) pg MCHC 31.7 (31.0-37.0) g/dL RDW Std Deviation 44.5 (28.0-62.0) fl RDW Coeff of Aureliano 15 (11.0-15.0) % Plt Count 254 (150-400) K/uL MPV 9.30 (7.40-12.00) fL Add Manual Diff YES Neutrophils % (Manual) 80 (48.0-80.0) % Band Neutrophils % 2 % Lymphocytes % (Manual) 11 L (16.0-40.0) % Monocytes % (Manual) 4 (0.0-15.0) % Eosinophils % (Manual) 3 (0.0-7.0) % Nucleated RBC % 0.0 /100WBC Absolute Seg Neuts 8.5 H (1.4-5.7) Band Neutrophils # 0.2 Lymphocytes # (Manual) 1.2 (0.6-2.4) Monocytes # (Manual) 0.4 (0.0-0.8) Eosinophils # (Manual) 0.3 (0.0-0.7) Nucleated RBCs # 0 K/uL Sodium 139 (136-146) mmol/L Potassium 4.7 (3.5-5.1) mmol/L Chloride 104 (98-110) mmol/L Carbon Dioxide 25 (21-31) mmol/L BUN 14 (6.0-23.0) mg/dL Creatinine 1.0 (0.6-1.5) mg/dL Est Cr Clr Drug Dosing 89.58 mL/min Estimated GFR (MDRD) > 60.0 ml/min Glucose 122 H (60-110) mg/dL POC Glucose 112 H (60-110) mg/dL Calcium 9.0 (8.8-10.8) mg/dL Magnesium 1.7 (1.5-2.3) mEq/L 04/18/17 Range/Units 11:12 WBC (4.0-11.0) K/uL RBC (4.50-5.90) M/uL Hgb (13.0-17.0) g/dL Hct (38.0-50.0) % MCV (80.0-98.0) fL MCH (27.0-32.0) pg MCHC (31.0-37.0) g/dL RDW Std Deviation (28.0-62.0) fl RDW Coeff of Aureliano (11.0-15.0) % Plt Count (150-400) K/uL MPV (7.40-12.00) fL Add Manual Diff Neutrophils % (Manual) (48.0-80.0) % Band Neutrophils % % Lymphocytes % (Manual) (16.0-40.0) % Monocytes % (Manual) (0.0-15.0) % Eosinophils % (Manual) (0.0-7.0) % Nucleated RBC % /100WBC Absolute Seg Neuts (1.4-5.7) Band Neutrophils # Lymphocytes # (Manual) (0.6-2.4) Monocytes # (Manual) (0.0-0.8) Eosinophils # (Manual) (0.0-0.7) Nucleated RBCs # K/uL Sodium (136-146) mmol/L Potassium (3.5-5.1) mmol/L Chloride (98-110) mmol/L Carbon Dioxide (21-31) mmol/L BUN (6.0-23.0) mg/dL Creatinine (0.6-1.5) mg/dL Est Cr Clr Drug Dosing mL/min Estimated GFR (MDRD) ml/min Glucose (60-110) mg/dL POC Glucose 113 H (60-110) mg/dL Calcium (8.8-10.8) mg/dL Magnesium (1.5-2.3) mEq/L Med Orders - Current: Current Medications Apixaban (Eliquis) 10 mg PO BID NORM Last Admin: 04/18/17 08:31 Dose: 10 mg Diltiazem HCl (Diltiazem) 0 mg IVPUSH Q1H PRN; Protocol PRN Reason: Arrhythmia Last Admin: 04/12/17 13:04 Dose: 5 mg Diltiazem HCl (Cardizem Cd) 360 mg PO Q24H [facility] Famotidine (Pepcid) 20 mg IVPUSH BID [facility] Last Admin: 04/18/17 08:31 Dose: 20 mg Metronidazole 500 mg/ Premix 100 mls @ 100 mls/hr IV Q8H [facility] Last Admin: 04/18/17 08:34 Dose: 100 mls/hr Insulin Aspart (Novolog) 0 unit SUBCUT TIDAC [facility] PRN Reason: Protocol Last Admin: 04/18/17 07:27 Dose: Not Given Levofloxacin (Levaquin) 750 mg PO Q24H [facility] Metoprolol Succinate (Toprol Xl) 100 mg PO DAILY [facility] Last Admin: 04/18/17 08:31 Dose: 100 mg Morphine Sulfate (Morphine) 2 mg IVPUSH Q2H PRN PRN Reason: Pain Last Admin: 04/11/17 21:32 Dose: 2 mg Morphine Sulfate (Morphine) 0 mg IVPUSH Q1H PRN PRN Reason: Pain (severe 7-10) Ondansetron HCl (Zofran) 4 mg IVPUSH Q6H PRN PRN Reason: Nausea/Vomiting Ramipril (Altace) 2.5 mg PO DAILY [facility] Last Admin: 04/18/17 08:31 Dose: 2.5 mg Discontinued Medications Bupivacaine HCl (Marcaine 0.5%) Confirm Administered Dose 30 ml .ROUTE .STK-MED ONE Stop: 04/10/17 17:34 Cefazolin Sodium (Ancef) Confirm Administered Dose 1 gm .ROUTE .STK-MED ONE Stop: 04/10/17 17:34 Digoxin (Lanoxin) 250 mcg IVPUSH ONETIME ONE Stop: 04/11/17 15:00 Last Admin: 04/11/17 19:41 Dose: Not Given Digoxin (Lanoxin) Confirm Administered Dose 500 mcg .ROUTE .STK-MED ONE Stop: 04/11/17 15:26 Last Admin: 04/11/17 19:41 Dose: Not Given Digoxin (Lanoxin) 250 mcg IVPUSH ONETIME ONE Stop: 04/11/17 18:39 Last Admin: 04/11/17 19:45 Dose: 250 mcg Diltiazem HCl (Diltiazem) 20 mg IVPUSH ONETIME ONE Stop: 04/11/17 20:50 Last Admin: 04/11/17 21:05 Dose: 20 mg Diltiazem HCl (Diltiazem) 20 mg IVPUSH ONETIME ONE Stop: 04/11/17 22:20 Last Admin: 04/11/17 22:36 Dose: 20 mg Diltiazem HCl (Diltiazem) Confirm Administered Dose 25 mg .ROUTE .STK-MED ONE Stop: 04/11/17 22:36 Last Admin: 04/11/17 22:42 Dose: Not Given Diltiazem HCl (Diltiazem) Confirm Administered Dose 25 mg .ROUTE .STK-MED ONE Stop: 04/12/17 09:02 Last Admin: 04/12/17 09:07 Dose: 5 mg Diltiazem HCl (Cardizem) 30 mg PO Q6HR [facility] Last Admin: 04/13/17 17:44 Dose: 30 mg Diltiazem HCl (Cardizem) 30 mg PO ONETIME ONE Stop: 04/13/17 18:50 Last Admin: 04/13/17 18:55 Dose: 30 mg Diltiazem HCl (Cardizem) 60 mg PO Q6HR [facility] Last Admin: 04/14/17 07:29 Dose: 60 mg Diltiazem HCl (Cardizem) 30 mg PO ONETIME ONE Stop: 04/14/17 08:44 Last Admin: 04/14/17 08:49 Dose: 30 mg Diltiazem HCl (Cardizem) 90 mg PO Q6HR [facility] Stop: 04/14/17 18:00 Last Admin: 04/14/17 17:19 Dose: 90 mg Diltiazem HCl (Cardizem Cd) 360 mg PO Q24H [facility] Last Admin: 04/17/17 23:02 Dose: 360 mg Etomidate (Amidate) Confirm Administered Dose 40 mg IVPUSH .STK-MED ONE Stop: 04/10/17 17:22 Fentanyl (Sublimaze) Confirm Administered Dose 250 mcg .ROUTE .STK-MED ONE Stop: 04/10/17 17:22 Heparin Sodium (Porcine) (Heparin Sodium) Confirm Administered Dose 5,000 units .ROUTE .STK-MED ONE Stop: 04/11/17 12:51 Last Admin: 04/11/17 19:41 Dose: Not Given Heparin Sodium (Porcine) (Heparin Sodium) 5,000 units SUBCUT Q8H NORM Last Admin: 04/14/17 13:44 Dose: 5,000 units Heparin Sodium (Porcine) (Heparin Sodium) 0 units IVPUSH ASDIRECTED PRN; Protocol PRN Reason: see heparin protocol Last Admin: 04/15/17 23:12 Dose: 1,500 units Levofloxacin/Dextrose 750 mg/ (Premix) 150 mls @ 100 mls/hr IV Q24H NORM Last Admin: 04/17/17 14:34 Dose: 100 mls/hr Metronidazole 500 mg/ Premix 100 mls @ 100 mls/hr IV Q8H NORM Last Admin: 04/10/17 17:47 Dose: Not Given Sodium Chloride (Normal Saline) 500 mls @ 1,000 mls/hr IV .BOLUS NORM Last Admin: 04/10/17 15:45 Dose: 1,000 mls/hr Sodium Chloride (Normal Saline) 1,000 mls @ 125 mls/hr IV ASDIRECTED NORM Last Admin: 04/10/17 22:48 Dose: 150 mls/hr Dopamine HCl/Dextrose (Dopamine In D5w 400 Mg/250 Ml) 400 mg in 250 mls @ 8.67 mls/hr IV TITRATE NORM; 2 MCG/KG/MIN PRN Reason: Protocol Norepinephrine Bitartrate (Norepinephr-0.9% Nacl 4 Mg/250) 4 mg in 250 mls @ 7.5 mls/hr IV TITRATE NORM; 2 MCG/MIN PRN Reason: Protocol Last Titration: 04/11/17 04:39 Dose: 3 mcg/min, 11.25 mls/hr Vasopressin 100 units/ Sodium (Chloride) 100 mls @ 0 mls/hr IV TITRATE NORM; Per Protocol PRN Reason: Protocol Last Titration: 04/11/17 20:30 Dose: 0 units/min, 0 mls/hr Sodium Chloride (Normal Saline) Confirm Administered Dose 20 mls @ as directed .ROUTE .STK-MED ONE Stop: 04/10/17 17:24 Sodium Chloride (Normal Saline) 500 mls @ 999 mls/hr IV .BOLUS NORM Last Admin: 04/10/17 18:11 Dose: Not Given Acetaminophen (Ofirmev) Confirm Administered Dose 100 mls @ as directed IV .STK- MED ONE Stop: 04/10/17 19:13 Lactated Ringer's (Ringers, Lactated) 1,000 mls @ 175 mls/hr IV ASDIRECTED NORM Stop: 04/11/17 00:08 Sodium Chloride (Normal Saline) 1,000 mls @ 150 mls/hr IV ASDIRECTED NORM Last Infusion: 04/11/17 23:15 Dose: 75 mls/hr Magnesium Sulfate (Magnesium Sulfate 2 Gm In Water 50 Ml) Confirm Administered Dose 50 mls @ as directed .ROUTE .STK-MED ONE Stop: 04/11/17 12:51 Last Admin: 04/11/17 19:41 Dose: Not Given Diltiazem HCl 100 mg/ Sodium (Chloride) 100 mls @ 5 mls/hr IV TITRATE NORM; 5 MG /HR PRN Reason: Protocol Last Titration: 04/13/17 02:05 Dose: 5 mg/hr, 5 mls/hr Sodium Chloride (Normal Saline) Confirm Administered Dose 100 mls @ as directed .ROUTE .STK-MED ONE Stop: 04/11/17 22:26 Last Admin: 04/11/17 22:29 Dose: Not Given Sodium Chloride (Normal Saline) 1,000 mls @ 75 mls/hr IV ASDIRECTED NORM Last Admin: 04/13/17 21:06 Dose: 75 mls/hr Magnesium Sulfate 4 gm/ Premix 100 mls @ 50 mls/hr IV ONETIME ONE Stop: 04/13/17 11:26 Last Admin: 04/13/17 09:39 Dose: 50 mls/hr Magnesium Sulfate 4 gm/ Premix 100 mls @ 50 mls/hr IV ONETIME ONE Stop: 04/13/17 13:29 Last Admin: 04/13/17 11:37 Dose: 50 mls/hr Magnesium Sulfate 4 gm/ Premix 100 mls @ 50 mls/hr IV ONETIME ONE Stop: 04/14/17 10:04 Last Admin: 04/14/17 08:17 Dose: 50 mls/hr Heparin Sod,Pork In 0.45% Nacl (Heparin-1/2ns 25,000 Units/500) 25,000 unit in 500 mls @ 26 mls/hr IV TITRATE NORM PRN Reason: Protocol Last Admin: 04/16/17 05:24 Dose: 19 units/kg/hr, 44.84 mls/hr Magnesium Sulfate 4 gm/ Premix 100 mls @ 50 mls/hr IV ONETIME ONE Stop: 04/15/17 12:29 Last Admin: 04/15/17 11:50 Dose: 50 mls/hr Magnesium Sulfate 4 gm/ Premix 100 mls @ 25 mls/hr IV ONETIME ONE Stop: 04/16/17 11:40 Last Admin: 04/16/17 09:10 Dose: 25 mls/hr Magnesium Sulfate 4 gm/ Premix 100 mls @ 25 mls/hr IV ONETIME ONE Stop: 04/16/17 22:59 Last Admin: 04/16/17 18:37 Dose: 25 mls/hr Magnesium Sulfate 4 gm/ Premix 100 mls @ 25 mls/hr IV ONETIME ONE Stop: 04/17/17 11:28 Last Admin: 04/17/17 08:25 Dose: 25 mls/hr Insulin Aspart (Novolog) 0 unit SUBCUT Q6H [facility] PRN Reason: Protocol Last Admin: 04/12/17 06:55 Dose: Not Given Iopamidol (Isovue-370 (76%)) 100 ml IV ONETIME STA Stop: 04/14/17 16:47 Last Admin: 04/14/17 16:47 Dose: 100 ml Ketamine HCl (Ketalar) Confirm Administered Dose 500 mg .ROUTE .STK-MED ONE Stop: 04/10/17 17:22 Lidocaine (Xylocaine-Mpf 2%) Confirm Administered Dose 5 ml .ROUTE .STK-MED ONE Stop: 04/10/17 17:22 Lorazepam (Ativan) 1 mg IVPUSH ONETIME ONE Stop: 04/11/17 22:19 Last Admin: 04/11/17 22:26 Dose: 1 mg Metoclopramide HCl (Reglan) 10 mg IVPUSH Q6H [facility] Last Admin: 04/17/17 08:24 Dose: 10 mg Metoprolol Succinate (Toprol Xl) 50 mg PO DAILY [facility] Last Admin: 04/13/17 08:00 Dose: 50 mg Metoprolol Succinate (Toprol Xl) 50 mg PO ONETIME ONE Stop: 04/13/17 09:12 Last Admin: 04/13/17 09:38 Dose: 50 mg Midazolam HCl (Versed 1 Mg/Ml) Confirm Administered Dose 2 mg .ROUTE .STK-MED ONE Stop: 04/10/17 17:22 Ondansetron HCl (Zofran) 4 mg IVPUSH Q4H PRN PRN Reason: Nausea Ondansetron HCl (Zofran) Confirm Administered Dose 4 mg .ROUTE .STK-MED ONE Stop: 04/10/17 17:22 Phenylephrine HCl (Phenylephrine In Ns 100 Mcg/Ml) Confirm Administered Dose 1 mg .ROUTE .STK-MED ONE Stop: 04/10/17 18:15 Potassium Chloride (Klor-Con M20) 40 meq PO ONETIME ONE Stop: 04/14/17 08:05 Last Admin: 04/14/17 08:17 Dose: 40 meq Potassium Chloride (Potassium Chloride) 40 meq PO ONETIME ONE Stop: 04/16/17 08:35 Last Admin: 04/16/17 09:11 Dose: 40 meq Potassium Chloride (Klor-Con M20) 40 meq PO ONETIME ONE Stop: 04/17/17 07:49 Last Admin: 04/17/17 08:20 Dose: 40 meq Rocuronium North (Zemuron) Confirm Administered Dose 100 mg .ROUTE .STK-MED ONE Stop: 04/10/17 17:22 Succinylcholine Chloride (Succinylcholine In Ns Pf) Confirm Administered Dose 200 mg .ROUTE .STK-MED ONE Stop: 04/10/17 17:22 - Exam General: Reports: Alert, Oriented HEENT: Reports: Pupils Equal, Pupils Reactive Neck: Reports: Supple, No JVD Lungs: Reports: Clear to Auscultation, Normal Respiratory Effort Cardiovascular: Reports: Regular Rate, Regular Rhythm GI/Abdominal Exam: Normal Bowel Sounds, Soft, Non-Tender Back Exam: Reports: Normal Inspection Extremities: Normal Inspection, Normal Capillary Refill Skin: Reports: Warm, Intact Neurological: Reports: No New Focal Deficit Psy/Mental Status: Reports: Alert, Normal Affect, Normal Mood *Q Meaningful Use (DIS) - VTE *Q VTE Criteria *Q: - Stroke *Q Stroke Criteria *Q: - AMI *Q AMI Criteria *Q:
[2017-04-18] MEDS ORDERED: Levofloxacin 250 MG Tab PO SCH ×2 (12:08→14:00)
[2017-04-18] MEDS ORDERED: metroNIDAZOLE 250 MG Tab PO SCH (16:00)
--- NOTE | 2017-04-18 16:05 | CT ---
EXAM DATE: 04/10/17 PATIENT'S AGE: 56 Patient: SHLOMO ROBERT Facility: [place], [place] Site . Site : 1960 Study: CT Chest Angio [id number] 5:02:35 PM Ordering Physician: Iva Vail Final Report: INDICATION: Chest pain. Recent surgery. Rule out pulmonary embolism. TECHNIQUE: Volumetric helical scanning of the thorax was performed during infusion of 100 cc of nonionic contrast material IV, timing optimized for pulmonary arterial opacification. Coronal and sagittal reconstructions were obtained. COMPARISON: Chest x-ray of 04/11/2017. FINDINGS: The pulmonary arteries are less than optimally opacified. On the images [id number] of series 501 there is a filling defect in a left lower lobe segmental artery, consistent with pulmonary embolism. No other embolus is evident. The lungs are low in volume with bilateral lower lobe base atelectasis. A tiny left pleural effusion is noted. No airway abnormality is evident. No mediastinal or hilar lymphadenopathy is demonstrated. The heart size is normal. Calcified coronary arterial plaque is demonstrated. A tubular structure variable width is demonstrated posterior to the lower descending aorta and is suspected to represent an enlarged venous structure. A small hiatal hernia is noted. A central venous line is present with tip in the SVC. Images of the upper abdomen are unremarkable. IMPRESSION: 1. Suboptimal pulmonary arterial opacification. Filling defect in a segmental artery in the left lower lobe base, compatible with pulmonary embolism. No other obvious embolus. 2. Shallow inspiration with bilateral lower lobe base atelectasis. 3. Tiny left pleural effusion. 4. Coronary artery disease. 5. Small hiatal hernia. 6. 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 Please note that all CT scans at this facility use dose modulation, iterative reconstruction, and/or weight-based dosing when appropriate to reduce radiation dose to as low as reasonably achievable. Dictated by Silvano Flynn MD @ Apr 18 2017 2:35PM (Electronic Signature) Report Signed by Proxy. [facility], [place]
[2017-04-18] MEDS ORDERED: Diltiazem 180 MG Cap.CD PO SCH (23:00)
--- NOTE | 2017-04-20 14:23 | ECHO ---
EXAM DATE: 04/10/17 PATIENT'S AGE: 56 The echocardiogram report can be seen in this patient's EMR (Electronic Medical Record) in the Reports section. The report has also been scanned into PACs. DOUGLAS
== END 2017-04-18 12:52 | disposition home or self-care (01) | DRG 338 ==
LOC: MW.MS 13:22 → OBSVTOIN 15:21 → MW.MS 15:21 → MW.ICU 15:23 → MW.MS 04-17 15:52
PROVIDERS: ADMIT Internal Medicine; ATTEND Internal Medicine
PROC: 0DTJ4ZZ Resection of Appendix, Percutaneous Endoscopic Approach (ICD-10-PCS; principal; 2017-04-10)
DX: K35.3 Acute appendicitis with localized peritonitis (principal); R65.21 Severe sepsis with septic shock; A41.9 Sepsis, unspecified organism; I26.99 Other pulmonary embolism without acute cor pulmonale; N17.9 Acute kidney failure, unspecified; I48.91 Unspecified atrial fibrillation; I10 Essential (primary) hypertension; E11.9 Type 2 diabetes mellitus without complications; I25.10 Atherosclerotic heart disease of native coronary artery without angina pectoris; I25.2 Old myocardial infarction; E83.42 Hypomagnesemia; Z79.899 Other long term (current) drug therapy; R10.9 Unspecified abdominal pain
CPT/HCPCS: 00840; 36415; 36556; 36600; 36620; 51702; 71010; 71010-26; 71275; 71275-26; 74176; 74176-26; 80048; 80053; 82150; 82803; 82962; 83605; 83690; 83735; 83880; 84100; 84132; 85025; 85027; 85730; 86850; 86900; 86901; 87040; 88304; 93005; 93306; 94660; A9270-GY; J0690; J1160; J1644; J1815-GY; J1956; J2060; J2250; J2270; J2405; J2765; J3010; J3475; J3490; J7030; J7040; Q9967

== ENCOUNTER 2023-05-10 05:36 | Emergency (ER) | payer OTHER ==
[2023-05-10] MEDS ORDERED: Ibuprofen 600 MG Tab PO ONE (05:52)
== END 2023-05-10 07:00 | disposition home or self-care (01) ==
LOC: MW.ED 05:36
DX: M25.511 Pain in right shoulder (principal); E11.9 Type 2 diabetes mellitus without complications; I10 Essential (primary) hypertension; I25.2 Old myocardial infarction; I48.91 Unspecified atrial fibrillation; Z86.73 Personal history of transient ischemic attack (TIA), and cerebral infarction without residual deficits; Z79.01 Long term (current) use of anticoagulants; Z79.899 Other long term (current) drug therapy; Z79.82 Long term (current) use of aspirin; Z79.84 Long term (current) use of oral hypoglycemic drugs; W11.XXXA Fall on and from ladder, initial encounter
CPT/HCPCS: 70450; 71101; 72125; 73030; 99284; A9270